=== PATIENT | female | born 1950 | race Caucasian/White ===

== ENCOUNTER 2020-03-18 10:55 | Emergency (ER) | payer MEDICARE, SELFPAY ==
[2020-03-18] VITALS (10 sets, daily range): BP systolic 126–171; BP diastolic 83–95; PULSE 55–79; RESP 13–18; TEMP 36.8; O2SAT 93–97; BMI 17.4
--- NOTE | 2020-03-18 11:01 | ECG_ITS ---
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 Measurements Intervals [place] Rate: 65 P: 76 NM: 170 QRS: 20 QRSD: 98 T: 69 QT: 418 QTc: 435 Interpretive Statements SINUS RHYTHM WITH OCCASIONAL ECTOPIC PREMATURE COMPLEXES LEFT ATRIAL ENLARGEMENT [-0.15mV P WAVE IN V1/V2] LOW QRS VOLTAGE IN EXTREMITY LEADS [QRS DEFLECTION < 0.5 mV IN LIMB LEADS] POSSIBLE RIGHT VENTRICULAR CONDUCTION DELAY [RSR (QR) IN V1/V2] PROBABLE ANTEROLATERAL MYOCARDIAL INFARCTION , OF INDETERMINATE AGE [35 ms Q WAVE IN I/aVL/V3-V6] No previous ECG available for comparison Electronically Signed On 03-18-2020 20:32:20 CDT by Darlyn Callaway M.D. [id number]
--- NOTE | 2020-03-18 11:01 | XRR_ITS ---
PROCEDURE INFORMATION: Exam: XR Chest, 1 View Exam date and time: 03/18/2020 11:21 AM Age: 69 years old Clinical indication: Chest pain; Type not specified; Prior surgery; Surgery type: Stents TECHNIQUE: Imaging protocol: XR of the chest Views: 1 view. COMPARISON: No relevant prior studies available. FINDINGS: Lungs: COPD and interstitial prominence. Pleural space: No pleural effusion. Heart/Mediastinum: No cardiomegaly. Bones/joints: Osteopenia and mild degenerative change. XR/XR chest 1V portable [id number] IMPRESSION: COPD and interstitial prominence.
[2020-03-18 11:28] LABS: Basophils # 0.1 10^3/uL (0.0-0.1); Basophils % 0.6 %; Hematocrit 42.2 % (37.0-47.0); Hemoglobin 13.8 g/dL (11.5-15.3); Lymphocytes # 1.9 10^3/uL (0.8-4.8); Lymphocytes % 22.5 %; Mean Corpuscular HGB Conc 32.7 g/dL (30.0-36.0); Mean Corpuscular Hemoglobin 30.7 pg (28.0-34.0); Mean Platelet Volume 9.8 fL (7.4-10.4); Monocytes # 0.4 10^3/uL (0.2-0.9); Monocytes % 5.1 %; Neutrophils # 5.89 10^3/uL (1.8-7.7); Neutrophils % 71.4 %; Nucleated Red Blood Cells % 0 %; Platelet Count 287 10^3/cmm (130-400); Red Blood Count 4.49 10^6/uL (4.1-5.3); Red Cell Distribution Width 13.2 % (12.1-15.1); White Blood Count 8.2 10^3/uL (4.0-10.0)
--- NOTE | 2020-03-18 11:40 | W.ED.WEAKNES ---
HPI - Weakness General: Chief complaint: Weakness Stated complaint: NECK PAIN Time Seen by Provider: 03/18/20 11:00 History of Present Illness: HPI Narrative: This patient is a 69-year-old female presenting today with several days of weakness and fatigue. She said some dizziness and exertional dyspnea. She went to her primary care clinic in [place] and they referred her here due to concerns for cardiac disease. She had an VT and stents placed in the past and had similar symptoms at that time. She said while she was at the clinic she started getting pain in the left shoulder and upper left neck. She also has been battling what she describes as sinusitis and bronchitis for several weeks. She has had some low-grade fevers off and on. She is currently on Zithromax. She said the generalized not feeling well has been going on really for more than the past 2 days but it is been worse for the past 2 days. Complaint: generalized weakness Onset (ago): week(s) (2, worse in the past 2 days) Duration: constant Location: generalized Severity: moderate Associated symptoms: Reports fever(s), short of breath and other (Dizziness); Denies chest pain, easy bruising, headache(s), nausea or vomiting Review of Systems General: Reports: 10 or more systems reviewed and unremarkable except in HPI and below Const: Reports: fever(s) and fatigue Eyes: Denies: change in vision ENMT: Denies: odynophagia Card: Denies: chest pain or swelling of feet/ankles Resp: Reports: dyspnea and non-productive cough; Denies: productive cough GI: Denies: abdominal pain, nausea or vomiting : Denies: flank pain or difficulty voiding Musc: Denies: neck pain or back pain Skin/Breast: Denies: rash Neuro: Reports: dizziness; Denies: headache(s), numbness in extremities or weakness in extremities Felipe/Lymph: Denies: easy bruising or easy bleeding PFSH ED PFSH: Medical History (Updated 03/18/20 @ 19:06 by Abril Romero MD) Lower respiratory infection Physical Exam Const: COMMON NORMALS: no acute distress, patient oriented x3, no limitations and alert GENERAL APPEARANCE: cooperative and comfortable HENMT: HEAD & SCALP: normal to inspection FACE & SINUS: normal facial exam Eye: GENERAL EYE: appearance normal, both eyes and all related structures Neck/C-Spine: COMMON NORMALS: supple, no meningeal signs and no JVD Chest: COMMONS NORMALS: normal inspection of the chest Resp: COMMON NORMALS: normal respiratory effort and No use of accessory muscles AUSCULTATION: rales bilateral at the base Cardio: COMMON NORMALS: no JVD, regular rate, regular rhythm and No murmurs present (Cardio) RATE: regular rate RHYTHM: regular rhythm GI: COMMON NORMALS: Normal to inspection, nondistended, normoactive bowel sounds present, Soft to palpation and non-tender INSPECTION: Yes normal to inspection AUSCULTATION: Yes normoactive bowel sounds PALPATION: Yes Soft to palpation Back/Pelvis: COMMON NORMALS: thoracic and lumbar spine normal to inspection Extremity: COMMON NORMALS: normal to inspection Neuro: COMMON NORMALS: patient oriented x3, moves all extremities, no focal motor deficits and no sensory deficits noted SENSORIUM/ORIENTATION: Yes alert MENINGEAL SIGNS: Yes no meningeal signs Psych: COMMON NORMALS: mental status grossly normal, cooperative and normal affect Skin: COMMON NORMALS: no rashes or lesions noted and turgor normal GENERAL SKIN EXAM: no rashes or lesions noted and turgor normal Course ED course: Patient sent over with an weakness. She understands that I am concerned about pending cardiac issues even though her work-up today is normal. She refused to stay in the hospital for further evaluation. I did give her follow-up with cardiology and put an outpatient referral for a stress test. Vital Signs: Vital signs: Vital Signs Temperature 98.2 F 03/18/20 11:03 Pulse Rate 65 03/18/20 17:00 Respiratory Rate 16 03/18/20 17:00 Blood Pressure 142/91 03/18/20 17:00 Pulse Oximetry 95 03/18/20 17:00 MDM - Weakness Lab Data: Labs: Lab Results 03/18/20 03/18/20 03/18/20 Range/Units 11:09 11:09 11:09 WBC 8.2 (4.0-10.0) 10^3/ uL RBC 4.49 (4.1-5.3) 10^6/u L Hgb 13.8 (11.5-15.3) g/dL Hct 42.2 (37.0-47.0) % MCV 94.0 (81-99) fL MCH 30.7 (28.0-34.0) pg MCHC 32.7 (30.0-36.0) g/dL RDW 13.2 (12.1-15.1) % Plt Count 287 (130-400) 10^3/c mm MPV 9.8 (7.4-10.4) fL Neut % (Auto) 71.4 % Lymph % (Auto) 22.5 % [place] % (Auto) 5.1 % Eos % (Auto) 0.0 % Baso % (Auto) 0.6 % Neut # (Auto) 5.89 (1.8-7.7) 10^3/u L Lymph # (Auto) 1.9 (0.8-4.8) 10^3/u L [place] # (Auto) 0.4 (0.2-0.9) 10^3/u L Eos # (Auto) 0.0 (0.0-0.8) 10^3/u L Baso # (Auto) 0.1 (0.0-0.1) 10^3/u L Nucleated RBC % (a uto) 0 % Nucleated RBCs # 0.0 /100WBC PT 12.80 (10.5-13.3) SECO NDS INR 0.94 (0.8-1.2) Sodium 135 L (136-145) mmol/L Potassium 3.6 (3.5-5.1) mmol/L Chloride 95 L (98-107) mmol/L Carbon Dioxide 27 (22-29) mmol/L Anion Gap 16.6 (5-19) BUN 13 (8-23) mg/dL Creatinine 0.7 (0.5-0.9) mg/dL GFR Calculation 82.7 L (90-130) mL/min Glucose 93 (65-115) mg/dL Calculated Osmolal ity 276 L (285-295) mOsm/k g Calcium 9.9 (8.5-10.5) mg/dL Total Bilirubin 0.2 (0.15-1.2) mg/dL AST 31 (0-32) U/L ALT 14 (0-33) U/L Alkaline Phosphata se 92 (35-105) IU/L Troponin T Baselin e (0-10) ng/L Troponin T 120 Min tana (0-10) ng/L Delta Troponin T (0-10) ABS# Troponin T Hi Sens 6Hr (0-10) ng/L Troponin T Hi Sens 6Hr Delta (0-12) ng/L NT-Pro-B Natriuret Pep 306 H (0-125) pg/mL Total Protein 7.3 (6.6-8.7) g/dL Albumin 4.3 (3.5-5.2) g/dL Globulin 3.0 (1.3-4.6) g/dL Lipase 17 (13-60) U/L Urine Color (Yellow) Urine Appearance (CLEAR) Urine pH (5-7) Ur Specific Gravit y (1.005-1.030) Urine Protein (Negative) Urine Glucose (UA) (Normal) Urine Ketones (Negative) Urine Blood (Negative) Urine Nitrate (Negative) Urine Bilirubin (NEGATIVE) Prot Sulfosalicyli c Acd (Negative) Urine Urobilinogen (Negative) mg/dL Ur Leukocyte Kiki ase (Negative) 03/18/20 03/18/20 03/18/20 Range/Units 11:09 11:15 13:02 WBC (4.0-10.0) 10^3/ uL RBC (4.1-5.3) 10^6/u L Hgb (11.5-15.3) g/dL Hct (37.0-47.0) % MCV (81-99) fL MCH (28.0-34.0) pg MCHC (30.0-36.0) g/dL RDW (12.1-15.1) % Plt Count (130-400) 10^3/c mm MPV (7.4-10.4) fL Neut % (Auto) % Lymph % (Auto) % [place] % (Auto) % Eos % (Auto) % Baso % (Auto) % Neut # (Auto) (1.8-7.7) 10^3/u L Lymph # (Auto) (0.8-4.8) 10^3/u L [place] # (Auto) (0.2-0.9) 10^3/u L Eos # (Auto) (0.0-0.8) 10^3/u L Baso # (Auto) (0.0-0.1) 10^3/u L Nucleated RBC % (a uto) % Nucleated RBCs # /100WBC PT (10.5-13.3) SECO NDS INR (0.8-1.2) Sodium (136-145) mmol/L Potassium (3.5-5.1) mmol/L Chloride (98-107) mmol/L Carbon Dioxide (22-29) mmol/L Anion Gap (5-19) BUN (8-23) mg/dL Creatinine (0.5-0.9) mg/dL GFR Calculation (90-130) mL/min Glucose (65-115) mg/dL Calculated Osmolal ity (285-295) mOsm/k g Calcium (8.5-10.5) mg/dL Total Bilirubin (0.15-1.2) mg/dL AST (0-32) U/L ALT (0-33) U/L Alkaline Phosphata se (35-105) IU/L Troponin T Baselin e 13 H (0-10) ng/L Troponin T 120 Min tana 16.78 H (0-10) ng/L Delta Troponin T 3.78 (0-10) ABS# Troponin T Hi Sens 6Hr (0-10) ng/L Troponin T Hi Sens 6Hr Delta (0-12) ng/L NT-Pro-B Natriuret Pep (0-125) pg/mL Total Protein (6.6-8.7) g/dL Albumin (3.5-5.2) g/dL Globulin (1.3-4.6) g/dL Lipase (13-60) U/L Urine Color Straw (Yellow) Urine Appearance Clear (CLEAR) Urine pH 8 H (5-7) Ur Specific Gravit y 1.020 (1.005-1.030) Urine Protein Neg (Negative) Urine Glucose (UA) Norm (Normal) Urine Ketones 1+ H (Negative) Urine Blood Neg (Negative) Urine Nitrate Negative (Negative) Urine Bilirubin Neg (NEGATIVE) Prot Sulfosalicyli c Acd Negative (Negative) Urine Urobilinogen Norm (Negative) mg/dL Ur Leukocyte Kiki ase Negative (Negative) 03/18/20 Range/Units 16:59 WBC (4.0-10.0) 10^3/ uL RBC (4.1-5.3) 10^6/u L Hgb (11.5-15.3) g/dL Hct (37.0-47.0) % MCV (81-99) fL MCH (28.0-34.0) pg MCHC (30.0-36.0) g/dL RDW (12.1-15.1) % Plt Count (130-400) 10^3/c mm MPV (7.4-10.4) fL Neut % (Auto) % Lymph % (Auto) % [place] % (Auto) % Eos % (Auto) % Baso % (Auto) % Neut # (Auto) (1.8-7.7) 10^3/u L Lymph # (Auto) (0.8-4.8) 10^3/u L [place] # (Auto) (0.2-0.9) 10^3/u L Eos # (Auto) (0.0-0.8) 10^3/u L Baso # (Auto) (0.0-0.1) 10^3/u L Nucleated RBC % (a uto) % Nucleated RBCs # /100WBC PT (10.5-13.3) SECO NDS INR (0.8-1.2) Sodium (136-145) mmol/L Potassium (3.5-5.1) mmol/L Chloride (98-107) mmol/L Carbon Dioxide (22-29) mmol/L Anion Gap (5-19) BUN (8-23) mg/dL Creatinine (0.5-0.9) mg/dL GFR Calculation (90-130) mL/min Glucose (65-115) mg/dL Calculated Osmolal ity (285-295) mOsm/k g Calcium (8.5-10.5) mg/dL Total Bilirubin (0.15-1.2) mg/dL AST (0-32) U/L ALT (0-33) U/L Alkaline Phosphata se (35-105) IU/L Troponin T Baselin e (0-10) ng/L Troponin T 120 Min tana (0-10) ng/L Delta Troponin T (0-10) ABS# Troponin T Hi Sens 6Hr 16.66 H (0-10) ng/L Troponin T Hi Sens 6Hr Delta 3.66 (0-12) ng/L NT-Pro-B Natriuret Pep (0-125) pg/mL Total Protein (6.6-8.7) g/dL Albumin (3.5-5.2) g/dL Globulin (1.3-4.6) g/dL Lipase (13-60) U/L Urine Color (Yellow) Urine Appearance (CLEAR) Urine pH (5-7) Ur Specific Gravit y (1.005-1.030) Urine Protein (Negative) Urine Glucose (UA) (Normal) Urine Ketones (Negative) Urine Blood (Negative) Urine Nitrate (Negative) Urine Bilirubin (NEGATIVE) Prot Sulfosalicyli c Acd (Negative) Urine Urobilinogen (Negative) mg/dL Ur Leukocyte Kiki ase (Negative) EKG Data^: EKG 1: EKG interpretation date: 03/18/20 EKG interpretation time: 11:13 Interpretation: Sinus rhythm at a rate of 65. Atrial enlargement. Low QRS voltage. Normal intervals with early right ventricular conduction delay. Q waves in 1, aVL. No acute ischemic changes noted. No old EKG for comparison other than what was sent from the clinic today which is unchanged. Discharge Plan Discharge Patient Disposition: Home Clinical Impression: Chest pain Condition: Stable Prescriptions: No Action azithromycin 250 mg tablet See Rx Instructions PO .COMPLEX Qty: 6 RF: 0 carbamide peroxide [Debrox] 6.5 % drops 5 drop EAR-BOTH BID 4 Days Qty: 15 RF: 0 aspirin 325 mg Tablet 325 mg PO PRN RF: 0 Tylenol Extra Strength 500 mg Tablet 1,000 mg PO BEDTIME RF: 0 Excedrin Extra Strength 250-250-65 mg Tablet 2 tab PO BID RF: 0 promethazine-DM 6.25-15 mg/5 mL syrup 5 ml PO Q6H PRN (Reason: unknown) RF: 0 Discharge Orders: Discharge Order (Routine); Ordered 03/18/20 Ordered By: Abril Romero Referrals: MATIAS Waters FNP [Primary Care Provider] - Christine Rivera MD [Physician] - 4-7 days Discharge Diet: Usual diet Discharge Activity: Resume usual activity Patient Instructions: Chest Pain (ED) Activity Restrictions/Additional Instructions: Please return to the emergency department if any worsening of your symptoms including worsening pain in your neck or shoulder. Follow-up with your primary care provider for assistance in setting up an outpatient stress test which has been ordered. You will also get a call regarding setting up an appointment with cardiology for follow-up. Discharge Date/Time: 03/18/20 19:18 Coding Level of Care Code ED Stock Chaser for Tianna Fwd Exam Comprehensive
[2020-03-18 11:48] LABS: Add Urine Microscopic? NO
[2020-03-18 11:55] LABS: Troponin(5th) Baseline 13 ng/L (0-10)
[2020-03-18 11:56] LABS: Urine Appearance Clear (CLEAR); Urine Color Straw (Yellow); pH Urine 8 (5-7)
[2020-03-18 11:57] LABS: Bilirubin Urine Neg (NEGATIVE); Blood Urine Neg (Negative); Glucose Urine UA Norm (Normal); Ketones Urine 1+ (Negative); Leukocyte Esterase Urine Negative (Negative); Nitrate Urine Negative (Negative); Protein Urine Neg (Negative); Sulfosalicylic Acid Urine Negative (Negative); Urobilinogen Urine Norm (Negative)
[2020-03-18 12:04] LABS: Alanine Aminotransferase 14 U/L (0-33); Albumin Level 4.3 g/dL (3.5-5.2); Alkaline Phosphatase 92 IU/L (35-105); Anion Gap 16.6 (5-19); Aspartate Amino Transferase 31 U/L (0-32); Blood Urea Nitrogen 13 mg/dL (8-23); Calcium 9.9 mg/dL (8.5-10.5); Carbon Dioxide 27 mmol/L (22-29); Chloride 95 mmol/L (98-107); Glomerular Filtration Rate 82.7 mL/min (90-130); Glucose 93 mg/dL (65-115); Lipase 17 U/L (13-60); NT Pro B Type Natriuretic Pept 306 pg/mL (0-125); Osmolality Calculated 276 mOsm/kg (285-295); Potassium 3.6 mmol/L (3.5-5.1); Sodium 135 mmol/L (136-145); Total Bilirubin 0.2 mg/dL (0.15-1.2); Total Protein 7.3 g/dL (6.6-8.7)
[2020-03-18 12:06] LABS: INR 0.94 (0.8-1.2)
--- NOTE | 2020-03-18 13:01 | ECG_ITS ---
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 Measurements Intervals [place] Rate: 61 P: 77 OR: 173 QRS: 42 QRSD: 100 T: 74 QT: 428 QTc: 431 Interpretive Statements SINUS RHYTHM LEFT ATRIAL ENLARGEMENT [-0.15mV P WAVE IN V1/V2] POSSIBLE RIGHT VENTRICULAR CONDUCTION DELAY [RSR (QR) IN V1/V2] PROBABLE INFERIOR MYOCARDIAL INFARCTION , OF INDETERMINATE AGE [35 ms Q WAVE IN II/aVF] PROBABLE ANTEROLATERAL MYOCARDIAL INFARCTION , OF INDETERMINATE AGE [35 ms Q WAVE IN I/aVL/V3-V6] Compared to ECG 03/18/2020 11:08:43 No significant changes Electronically Signed On 03-18-2020 20:37:21 CDT by Darlyn Callaway M.D. [email or web address].Sarta/store/OM/[id number]
[2020-03-18 13:31] LABS: Troponin 5 2HR 16.78 ng/L (0-10); Troponin 5 2HR Delta 3.78 ABS# (0-10)
[2020-03-18] MEDS: acetaminophen 325 mg Tablet 975 MG PO (15:25)
--- NOTE | 2020-03-18 17:01 | ECG_ITS ---
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 Measurements Intervals [place] Rate: 62 P: 78 WV: 179 QRS: 53 QRSD: 98 T: 69 QT: 430 QTc: 438 Interpretive Statements SINUS RHYTHM POSSIBLE RIGHT ATRIAL ENLARGEMENT [0.25mV P WAVE] LEFT ATRIAL ENLARGEMENT [-0.15mV P WAVE IN V1/V2] INCOMPLETE RIGHT BUNDLE BRANCH BLOCK [90+ ms QRS DURATION, TERMINAL R IN V1/V2, 40+ ms S IN I/aVL/V4/V5/V6] PROBABLE INFERIOR MYOCARDIAL INFARCTION , OF INDETERMINATE AGE [35 ms Q WAVE IN II/aVF] PROBABLE ANTEROLATERAL MYOCARDIAL INFARCTION , OF INDETERMINATE AGE [35 ms Q WAVE IN I/aVL/V3-V6] Compared to ECG 03/18/2020 12:59:20 Incomplete right bundle-branch block now present Myocardial infarct finding still present Electronically Signed On 03-18-2020 20:38:30 CDT by Darlyn Callaway M.D. [email or web address].[facility]je[facility]is [facility] hospitalSk[facility].EquityZen/store/OM/[id number]
[2020-03-18 17:40] LABS: Troponin 5 6HR 16.66 ng/L (0-10); Troponin 5 6HR Delta 3.66 ng/L (0-12)
--- NOTE | 2020-03-19 10:15 | PC.SOCIAL ---
Addendum entered by Yessenia Marrero RN 03/19/20 10:18: Called patient and updated her that each area will be calling her with an appt date and time. She verbalized understanding. Original Note: Called Heaven at [facility] she will schedule appt with Cardiology and call patient with date and time. Faxed order for stress test to [facility] and scanned to email to Carlita there just in case. Confirmation of successful fax transmission was received.
--- NOTE | 2020-03-22 09:46 | DCPLANNER ---
Patient has a follow up appointment scheduled for Wednesday, April 08, 2020 at 1:[address] Rivera. Clinic will call patient with appointment information. talent management manager called centralized scheduling, they have order was told working on getting it scheduled.
--- NOTE | 2020-03-26 15:05 | DCPLANNER ---
Patient has an outpatient stress test scheduled for , April 04, 2020 at 1:00. Centralized scheduling will call patient with appointment information.
--- NOTE | 2020-04-30 13:16 | DCPLANNER ---
[facility] for 04[facility] Rivera - patient did attend the appointment Patient had an outpatient stress test scheduled for 04.04.20 - patient did attend the stress test.
== END 2020-03-18 19:18 | disposition home or self-care (01) ==
PROVIDERS: Emergency Provider Emergency Medicine; PCP Nurse Practitioner Family
DX: R07.9 Chest pain, unspecified (principal); Z79.82 Long term (current) use of aspirin
CPT/HCPCS: 12345; 36415; 71045; 80053; 81003; 83690; 83880; 84484; 85025; 85610; 93005; 99284

== ENCOUNTER 2020-04-04 10:15 | Outpatient (CLI) | payer MEDICARE, SELFPAY ==
[2020-04-04 10:44] VITALS: BMI 17.4
--- NOTE | 2020-04-04 10:55 | ECG_ITS ---
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 The perfusion scan will be documented separately. DATA: Baseline heart rate was 50 beats per minute. Baseline blood pressure was 152/83 millimeters of mercury. Target heart rate was 149. Maximum heart rate achieved was 76. which was 51 % of the predicted target heart rate. Maximum blood pressure was 152/88 millimeters of mercury. The reason for ending the test was completion of the protocol. The patient did not experience any symptoms. ELECTROCARDIOGRAM: BASELINE: Sinus bradycardia with PAC. Normal axis. Otherwise, no ST-T changes suggestive of ischemia noted. No arrhythmia noted. EXERCISE: After Lexiscan injection, no ST-T changes suggestive of ischemic noted. No arrhythmia noted. 1. EKG not suggestive of ischemia 2. Lexiscan injection unremarkable. 3. Perfusion scan will be documented separately. Electronically Signed On 04-17-2020 19:01:29 CDT by Brigitte Agustin M.D. [id number]
--- NOTE | 2020-04-04 10:56 | NMCV_ITS ---
NM livia perf SPECT r/s* [id number] Yoselyn Lund Age: 70 Gender: F : 1950 Exam Date: 04/04/2020 11:44 Ordering Phys: Abril Romero MD Technologist: CHEKO Garnett Exam Location: [facility] Indications: Chest pain STRESS TEST Please see separate stress test report in [facility] for full findings IMAGE PROTOCOL Rest/Stress 1 Lexiscan Day Radiopharmaceutical Dose (mCi) Administration Site Administered by Rest: Tc-99m 10.7 IV CHEKO Garnett Sestamibi Stress:Tc-99m 33.0 IV CHEKO Maloney Sestamibi Rest: 04-Apr-2020 60 Discovery 630 Stress: 04-Apr-2020 45 Discovery 630 0.4mg Lexiscan. Images obtained in supine and prone position. SPECT RESULTS Technical Quality: Excellent Raw Data Analysis: Normal Image Corrections: No attenuation or motion correction applied Summed Stress Score: 0 Summed Rest Score: 0 Summed Difference Score: 0 PERFUSION FINDINGS Uniform myocardial tracer uptake with no significant perfusion abnormalities FUNCTIONAL RESULTS (calculated via Gated SPECT) Stress Image LV EF (%): 75 Stress EDV (mL):61 TID: 0.92 Stress ESV (mL):15 FUNCTIONAL FINDINGS: Segmental wall motion analysis revealing no gross wall motion normalities IMPRESSIONS 1. Unremarkable myocardial perfusion imaging. 2. Normal LV ejection fraction 75% 3. LV wall motion analysis revealing no gross wall motion abnormalities. 4. Normal LV volume. No significant coronary ischemia, based on the above findings Dr Darlyn Callaway MD FAC (Electronically Signed) Final Date: 04 April 2020 18:46 S
--- NOTE | 2020-04-04 13:01 | SUR.PREOP ---
Patient reports no pain or discomfort prior to the start of the procedure.
[2020-04-04] MEDS: regadenoson 0.4 Mg/5 ml Syringe IVP (13:09)
[2020-04-04 13:21] VITALS: BP 135/85; PULSE 65
== END 2020-04-04 10:16 | disposition home or self-care (01) ==
LOC: CDL 10:16
PROVIDERS: PCP Nurse Practitioner Family; Visit Provider Emergency Medicine
DX: R07.9 Chest pain, unspecified (principal); R06.02 Shortness of breath
CPT/HCPCS: 78452; 93017; A9500; J2785

== ENCOUNTER → 2020-06-18 12:16 | Outpatient (BNVA) | payer MEDICARE, SELFPAY | PROVIDERS: PCP Nurse Practitioner Family; Visit Provider Nurse Practitioner Family | DX: J22 Unspecified acute lower respiratory infection (principal); Z20.828 Contact with and (suspected) exposure to other viral communicable diseases; J01.40 Acute pansinusitis, unspecified | CPT/HCPCS: 87400; 87635 ==

== ENCOUNTER 2022-04-19 10:46 | Inpatient (IN) | payer MEDICARE, SELFPAY ==
[2022-04-19] VITALS (31 sets, daily range): BP systolic 106–139; BP diastolic 64–83; PULSE 48–193; RESP 17–36; TEMP 36.7–36.8; O2SAT 83–100; BMI 17.4
--- NOTE | 2022-04-19 10:56 | XRR_ITS ---
PROCEDURE INFORMATION: Exam: XR Chest Exam date and time: 04/19/2022 11:53 AM Age: 72 years old Clinical indication: Chest pain. Angina pectoris. TECHNIQUE: Imaging protocol: Radiologic exam of the chest. Views: 1 view. COMPARISON: CR XR chest 1V portable [id number] 03/18/2020 11:30 AM FINDINGS: Lungs: The lungs are hyperinflated. A perihilar nodule on the left is similar to prior measuring 6.4 mm. Pleural spaces: No pleural effusion. No pneumothorax. Heart/Mediastinum: The cardiac silhouette is unchanged. No gross evidence of pneumomediastinum. Bones/joints: No gross fracture. Soft tissues: Probable scarring in the lower left chest. XR/XR chest 1V portable [id number] IMPRESSION: 1. Pulmonary hyperinflation; query COPD, asthma or other obstructive lung disease. 2. Persistent cardiomegaly. 3. Perihilar nodule on the left similar to March 2020. Consider nonemergent CT chest to better characterize.
--- NOTE | 2022-04-19 11:12 | ECG_ITS ---
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 Measurements Intervals [place] Rate: 50 P: 77 NE: 208 QRS: 78 QRSD: 96 T: 84 QT: 479 QTc: 440 Interpretive Statements SINUS BRADYCARDIA WITH OCCASIONAL SUPRAVENTRICULAR PREMATURE COMPLEXES POSSIBLE LEFT ATRIAL ENLARGEMENT [-0.1mV P-WAVE IN V1/V2] ST DEVIATION AND MODERATE T-WAVE ABNORMALITY, CONSIDER ANTERIOR ISCHEMIA Compared to ECG 03/18/2020 17:04:38 T-wave abnormality now present Possible ischemia now present Sinus rhythm no longer present Incomplete right bundle-branch block no longer present Myocardial infarct finding no longer present Electronically Signed On 04-19-2022 13:02:23 CDT by Christine Rivera M.D. [id number]
[2022-04-19 11:23] LABS: Basophils # 0.1 10^3/uL (0.0-0.1); Basophils % 0.9 %; Eosinophils # 0.1 10^3/uL (0.0-0.8); Eosinophils % 0.9 %; Hematocrit 40.9 % (37.0-47.0); Hemoglobin 12.9 g/dL (11.5-15.3); Lymphocytes # 1.3 10^3/uL (0.8-4.8); Lymphocytes % 21.5 %; Mean Corpuscular HGB Conc 31.5 g/dL (30.0-36.0); Mean Corpuscular Hemoglobin 31.3 pg (28.0-34.0); Mean Corpuscular Volume 99.3 fl (81-99); Monocytes # 0.4 10^3/uL (0.2-0.9); Monocytes % 7.5 %; Neutrophils # 4.05 10^3/uL (1.8-7.7); Nucleated Red Blood Cells % 0 %; Platelet Count 242 10^3/cmm (130-400); Red Blood Count 4.12 10^6/uL (4.1-5.3); Red Cell Distribution Width 13.4 % (12.1-15.1); White Blood Count 5.9 10^3/uL (4.0-10.0)
[2022-04-19] MEDS: morphine 4 mg/mL SDV 1 mL IVP (11:25)
--- NOTE | 2022-04-19 13:10 | ECG_ITS ---
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 Measurements Intervals [place] Rate: 50 P: 84 AK: 200 QRS: 82 QRSD: 98 T: 89 QT: 461 QTc: 422 Interpretive Statements SINUS BRADYCARDIA LEFT ATRIAL ENLARGEMENT [-0.15mV P-WAVE IN V1/V2] MODERATE ST DEPRESSION [0.05+ mV ST DEPRESSION] Compared to ECG 04/19/2022 11:12:29 ST (T wave) deviation now present T-wave abnormality no longer present Possible ischemia no longer present Electronically Signed On 04-19-2022 13:11:28 CDT by Christine Rivera M.D. [email or web address].Vriti Infocom/store/[id number]
[2022-04-19 13:16] LABS: Troponin(5th) Baseline 67 ng/L (0-10)
[2022-04-19 13:24] LABS: Alanine Aminotransferase 11 U/L (0-33); Albumin Level 3.7 g/dL (3.5-5.2); Alkaline Phosphatase 87 U/L (35-105); Aspartate Amino Transferase 19 U/L (0-32); Blood Urea Nitrogen 16 mg/dL (8-23); Calcium 9.3 mg/dL (8.5-10.5); Carbon Dioxide 24 mmol/L (22-29); Chloride 101 mmol/L (98-107); Globulin 2.6 g/dL (1.3-4.6); Glucose 102 mg/dL (65-115); NT Pro B Type Natriuretic Pept 192 pg/mL (0-125); Osmolality Calculated 285 mOsm/kg (285-295); Sodium 137 mmol/L (136-145); Total Bilirubin 0.2 mg/dL (0.15-1.2); Total Protein 6.3 g/dL (6.6-8.7)
[2022-04-19 13:29] LABS: Anion Gap 16.4 (5-19); Potassium 4.4 mmol/L (3.5-5.1)
[2022-04-19 15:02] LABS: Troponin 5 2HR 265.8 ng/L (0-10); Troponin 5 2HR Delta 198.8 ABS# (0-10)
--- NOTE | 2022-04-19 15:09 | ED_ITS ---
Documented by User: Ana Cristina Burgess 04/19/22 20:39 HPI - Chest Pain General: Chief Complaint: Chest Pain Stated Complaint: CHEST PAIN; BRADYCARDIA Time Seen by Provider: 04/19/22 10:55 History of Present Illness: Associated symptoms: Deny abdominal pain, diaphoresis, dyspnea, fever(s), nausea, palpitations, syncope or vomiting Review of Systems Const: Denies: fever(s), chills, body aches, change in appetite, change in weight, fatigue, malaise or diaphoresis Eyes: Denies: change in vision, blurry vision, blind spots, photophobia, eye discomfort, eye discharge, eye redness, floaters or seeing flashes ENMT: Denies: throat pain, uvular edema, enlarged tonsils, odynophagia, hoarseness, mouth pain, swelling of lips/tongue, oral sores, bleeding gums, dental pain, dry mouth, ear or mastoid pain, ear discharge, change in hearing, tinnitus, disequilibrium, nasal discharge, nasal congestion, post nasal drip or sinus pain Card: Reports: chest pain; Denies: palpitations, irregular heart rhythm, edema, swelling of feet/ankles, lightheadedness, syncope, pre-syncope, dyspnea on exertion, orthopnea, leg pain with exertion or acrocyanosis Resp: Denies: dyspnea, productive cough, non-productive cough, wheezing, stridor, pain on inspiration, change in phlegm color, hemoptysis or chest congestion GI: Denies: abdominal pain, nausea, vomiting, hematemesis, dysphagia, diarrhea, constipation, GI cramping, change in bowel habits or rectal pain : Denies: flank pain, difficulty voiding, dysuria, urinary frequency, urinary urgency, urinary hesitancy or hematuria Musc: Denies: neck pain, back pain, extremity pain, extremity swelling, joint pain, joint swelling, joint redness, joint warmth or deformity Skin/Breast: Denies: rash, pruritus, erythema, sores, new lesions, changes in skin color or dry skin Neuro: Denies: headache(s), numbness in extremities, weakness in extremities, sensory changes, lack of coordination, difficulty walking, frequent falls, dizziness, vertigo, confusion, behavioral changes, Slurred speech present, difficulty communicating thoughts or seizure-like activity Psych: Denies: anxiety, depression, suicidal ideation or homicidal ideation Endo: Denies: polyuria, polydipsia, tired all the time, cold intolerance, e xcessive sweating, flushing, hot flashes or heat intolerance Felipe/Lymph: Denies: easy bruising, easy bleeding, petechiae, purpura, enlarged lymph nodes or tender lymph nodes All/Imm: Denies: urticaria, throat swelling, tongue swelling, facial swelling, acute wheezing or itchy eyes PFSH ED PFSH: Medical History CAD (coronary artery disease) Chronic back pain Close exposure to COVID-19 virus Lower respiratory infection Osteoarthritis Smoking addiction Surgical History History of coronary artery stent placement 04/18/11 Family History Other CAD (coronary artery disease) Diabetes Hypertension Social History Smoking and tobacco status: current every day smoker cigarettes Packs smoked per day: 1 Years cigarettes smoked: 50 Alcohol intake: current Alcohol intake frequency: holidays/special occasions only Substance/Drug Use: never Lives independently: Yes Household members: none Marital status: / Physical Exam HENMT: THROAT: no uvular edema Course Vital Signs: Vital signs: Vital Signs Temperature 98.0 F 04/19/22 19:00 Pulse Rate 58 L 04/19/22 20:00 Respiratory Rate 17 04/19/22 20:00 Blood Pressure 128/75 04/19/22 20:00 Pulse Oximetry 98 04/19/22 20:00 Oxygen Delivery Ny thod 04/19/22 19:00 MDM - Chest Pain Medical Decision Making 72-year-old female presenting today with chest pain. EKG without evidence of acute ischemia. Initial troponin slightly elevated. Repeat troponin with significant delta increase. Patient with known coronary artery disease. Last catheterization in 2010. sHe is taking all medications as prescribed. Is currently chest pain-free. Due to significant elevation in troponin on delta. Will admit to the hospital for further cardiac restratification. Patient is an NSTEMI. Did take appropriate dose of aspirin prior to arrival Lab Data : 04/19/22 11:03 04/19/22 12:35 Radiology Impressions Chest X-Ray 04/19/22 10:56 IMPRESSION: 1. Pulmonary hyperinflation; query COPD, asthma or other obstructive lung disease. 2. Persistent cardiomegaly. 3. Perihilar nodule on the left similar to March 2020. Consider nonemergent CT chest to better characterize. Laboratory Results WBC 5.9 10^3/uL (4.0-10.0) 04/19/22 11:03 RBC 4.12 10^6/uL (4.1-5.3) 04/19/22 11:03 Hgb 12.9 g/dL (11.5-15.3) 04/19/22 11:03 Hct 40.9 % (37.0-47.0) 04/19/22 11:03 MCV 99.3 fl (81-99) H 04/19/22 11:03 MCH 31.3 pg (28.0-34.0) 04/19/22 11:03 MCHC 31.5 g/dL (30.0-36.0) 04/19/22 11:03 RDW 13.4 % (12.1-15.1) 04/19/22 11:03 Plt Count 242 10^3/cmm (130-400) 04/19/22 11:03 MPV 10.0 fL (7.4-10.4) 04/19/22 11:03 Neut % (Auto) 69.0 % 04/19/22 11:03 Lymph % (Auto) 21.5 % 04/19/22 11:03 [place] % (Auto) 7.5 % 04/19/22 11:03 Eos % (Auto) 0.9 % 04/19/22 11:03 Baso % (Auto) 0.9 % 04/19/22 11:03 Neut # (Auto) 4.05 10^3/uL (1.8-7.7) 04/19/22 11:03 Lymph # (Auto) 1.3 10^3/uL (0.8-4.8) 04/19/22 11:03 [place] # (Auto) 0.4 10^3/uL (0.2-0.9) 04/19/22 11:03 Eos # (Auto) 0.1 10^3/uL (0.0-0.8) 04/19/22 11:03 Baso # (Auto) 0.1 10^3/uL (0.0-0.1) 04/19/22 11:03 Nucleated RBC % (auto) 0 % 04/19/22 11:03 Nucleated RBCs # 0.0 /100WBC 04/19/22 11:03 Sodium 137 mmol/L (136-145) 04/19/22 12:35 Potassium 4.4 mmol/L (3.5-5.1) 04/19/22 12:35 Chloride 101 mmol/L (98-107) 04/19/22 12:35 Carbon Dioxide 24 mmol/L (22-29) 04/19/22 12:35 Anion Gap 16.4 (5-19) 04/19/22 12:35 BUN 16 mg/dL (8-23) 04/19/22 12:35 Creatinine 0.6 mg/dL (0.5-0.9) 04/19/22 12:35 GFR Calculation Not Reportable 04/19/22 12:35 Glucose 102 mg/dL (65-115) 04/19/22 12:35 Calculated Osmolality 285 mOsm/kg (285-295) 04/19/22 12:35 Calcium 9.3 mg/dL (8.5-10.5) 04/19/22 12:35 Total Bilirubin 0.2 mg/dL (0.15-1.2) 04/19/22 12:35 AST 19 U/L (0-32) 04/19/22 12:35 ALT 11 U/L (0-33) 04/19/22 12:35 Alkaline Phosphatase 87 U/L (35-105) 04/19/22 12:35 Troponin T Baseline 67 ng/L (0-10) H 04/19/22 12:35 Troponin T 120 Minute 265.8 ng/L (0-10) H 04/19/22 14:31 Delta Troponin T 198.8 ABS# (0-10) H* 04/19/22 14:31 NT-Pro-B Natriuret Pep 192 pg/mL (0-125) H 04/19/22 12:35 Total Protein 6.3 g/dL (6.6-8.7) L 04/19/22 12:35 Albumin 3.7 g/dL (3.5-5.2) 04/19/22 12:35 Globulin 2.6 g/dL (1.3-4.6) 04/19/22 12:35 Urine Color Yellow (Yellow) 04/19/22 15:08 Urine Appearance Hazy (CLEAR) A 04/19/22 15:08 Urine pH 8 (5-7) H 04/19/22 15:08 Ur Specific Mere[place] 1.010 (1.005-1.030) 04/19/22 15:08 Urine Protein Neg (Negative) 04/19/22 15:08 Urine Glucose (UA) Norm (Normal) 04/19/22 15:08 Urine Ketones 1+ (Negative) H 04/19/22 15:08 Urine Blood Neg (Negative) 04/19/22 15:08 Urine Nitrate Negative (Negative) 04/19/22 15:08 Urine Bilirubin Neg (Negative) 04/19/22 15:08 Prot Sulfosalicylic Acd Negative (Negative) 04/19/22 15:08 Urine Urobilinogen Norm mg/dL (Negative) 04/19/22 15:08 Ur Leukocyte Esterase Negative (Negative) 04/19/22 15:08 Urine RBC None /hpf (0-2) 04/19/22 15:08 Urine WBC Rare /hpf (0-5) 04/19/22 15:08 Ur Squamous Epith Cells Rare /hpf (0-5) 04/19/22 15:08 Amorphous Sediment 2+ /hpf 04/19/22 15:08 Urine Bacteria Trace /hpf (NONE) 04/19/22 15:08 Discharge Plan Discharge Patient Disposition: Admitted As Inpatient Admit Provider: Rahul Flood Clinical Impression: Acute non-ST elevation myocardial infarction (NSTEMI) Condition: Stable Coding Level of Care Code ED Ordering Machine Operator for Chg Fwd Exam Comprehensive Documented by User: Ector Michel DO 04/19/22 17:26 HPI - Chest Pain General: Chief Complaint: Chest Pain Stated Complaint: CHEST PAIN; BRADYCARDIA Time Seen by Provider: 04/19/22 10:55 History of Present Illness: 72-year-old female presenting with left-sided chest pain. Patient notes chest pain this morning. Has a history of coronary artery disease with cardiac stenting in 2010. Upon arrival she has resolution of chest pain. She denies pain or swelling her lower extremities. She denies history of blood clots. She denies recent travel or recent surgeries.Symptoms are unimproved or worsened by anything. Review of Systems General: Reports: 10 or more systems reviewed and unremarkable except in HPI and below PFSH ED PFSH: Medical History CAD (coronary artery disease) Chronic back pain Close exposure to COVID-19 virus Lower respiratory infection Osteoarthritis Smoking addiction Surgical History History of coronary artery stent placement 04/18/11 Family History Other CAD (coronary artery disease) Diabetes Hypertension Social History Smoking and tobacco status: current every day smoker cigarettes Packs smoked per day: 1 Years cigarettes smoked: 50 Alcohol intake: current Alcohol intake frequency: holidays/special occasions only Substance/Drug Use: never Lives independently: Yes Household members: none Marital status: / Physical Exam 2 Const: COMMON NORMALS: no acute distress, patient oriented x3 and alert GENERAL APPEARANCE: cooperative ORIENTATION/CONSCIOUSNESS: Yes awake, Yes oriented to person, Yes oriented to place and Yes oriented to time HENMT: COMMON NORMALS: normocephalic, atraumatic, external ears normal, Normal external nose present and moist oral mucous membranes HEAD & SCALP: normal to inspection, normocephalic and atraumatic NOSE: Normal external nose present GENERAL EAR: hearing grossly impaired EXTERNAL EAR: Yes external ears normal Eye: COMMON NORMALS: Equal, round and reactive pupils present, EOMs intact bilaterally, conjunctivae normal and no scleral icterus GENERAL EYE: appearance normal, both eyes and all related structures EYELID: eyelids normal CONJUNCTIVA: Yes conjunctivae normal SCLERA: sclerae normal PUPIL: Yes Equal, round and reactive pupils present Neck/C-Spine: COMMON NORMALS: full ROM, supple and no JVD GENERAL: Yes normal visual inspection Lymph: LYMPHATIC: no lymphadenopathy noted and no lymphedema noted Chest: COMMONS NORMALS: normal inspection of the chest Resp: COMMON NORMALS: normal respiratory effort, No retractions and No use of accessory muscles Cardio: COMMON NORMALS: no JVD, regular rate and regular rhythm RATE: regular rate RHYTHM: regular rhythm GI: COMMON NORMALS: Normal to inspection, nondistended, normoactive bowel sounds present : COMMON NORMALS: Yes no CVA tenderness BLADDER/KIDNEY EXAM: Yes no CVA tenderness Back/Pelvis: COMMON NORMALS: no CVA tenderness and thoracic and lumbar spine normal to inspection Extremity: COMMON NORMALS: normal to inspection, full ROM and capillary refill normal GENERAL: Yes normal exam except as noted Neuro: COMMON NORMALS: patient oriented x3, CN's II-XII intact bilaterally, moves all extremities, no focal motor deficits, no sensory deficits noted and gait normal SENSORIUM/ORIENTATION: Yes alert, Yes oriented to person, Yes oriented to place and Yes oriented to time Psych: COMMON NORMALS: mental status grossly normal, Normal thought process present, cooperative and normal affect THOUGHT PROCESS: Normal thought process present Skin: COMMON NORMALS: no rashes or lesions noted and no wounds GENERAL SKIN EXAM: no rashes or lesions noted Course Vital Signs: Vital signs: Vital Signs Temperature 98.0 F 04/19/22 19:00 Pulse Rate 58 L 04/19/22 20:00 Respiratory Rate 17 04/19/22 20:00 Blood Pressure 128/75 04/19/22 20:00 Pulse Oximetry 98 04/19/22 20:00 Oxygen Delivery Me thod 04/19/22 19:00 MDM - Chest Pain Medical Decision Making 72-year-old female presenting today with chest pain. EKG without evidence of acute ischemia. Initial troponin slightly elevated. Repeat troponin with significant delta increase. Patient with known coronary artery disease. Last catheterization in 2010. He is taking all medications as prescribed. Is currently chest pain-free. Due to significant elevation in troponin on delta. Will admit to the hospital for further cardiac restratification. Patient is an NSTEMI. Lab Data : 04/19/22 11:03 04/19/22 12:35 Radiology Impressions Chest X-Ray 04/19/22 10:56
[2022-04-19] MEDS: heparin 5,000 unit/mL INJ 1 mL IV (15:51)
[2022-04-19 15:59] LABS: Add Urine Microscopic? YES; Bilirubin Urine Neg (Negative); Blood Urine Neg (Negative); Glucose Urine UA Norm (Normal); Ketones Urine 1+ (Negative); Leukocyte Esterase Urine Negative (Negative); Nitrate Urine Negative (Negative); Protein Urine Neg (Negative); Sulfosalicylic Acid Urine Negative (Negative); Urine Appearance Hazy (CLEAR); Urine Color Yellow (Yellow); Urobilinogen Urine Norm (Negative); pH Urine 8 (5-7)
[2022-04-19] MEDS: heparin drip 25,000 UNIT/500 ML PREMIX 13.34 UNIT IV (15:59)
[2022-04-19 16:00] LABS: Amorphous Sediment Urine 2+ /hpf; Bacteria Urine TRACE /hpf; Squamous Epithelial Cell Urine RARE /hpf (0-5); WBC Urine RARE /hpf (0-5)
[2022-04-19 16:01] LABS: Add Urine Culture? No
--- NOTE | 2022-04-19 16:56 | ECG_ITS ---
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 Measurements Intervals Becker Rate: 54 P: 76 MN: 196 QRS: 2 QRSD: 94 T: 85 QT: 446 QTc: 426 Interpretive Statements SINUS BRADYCARDIA POSSIBLE LEFT ATRIAL ENLARGEMENT [-0.1mV P-WAVE IN V1/V2] POSSIBLE RIGHT VENTRICULAR CONDUCTION DELAY [RSR (QR) IN V1/V2] Compared to ECG 04/19/2022 13:10:21 ST (T wave) deviation no longer present Electronically Signed On 04-20-2022 8:34:17 CDT by Christine Rivera M.D. [id number]
--- NOTE | 2022-04-19 16:58 | PM.HP ---
Providers/Chief Complaint Admitting Physician: Rahul Flood Primary Care Provider: PABLO Allen Chief Complaint: CHEST PAIN; BRADYCARDIA History of Present Illness 72-year-old lady with history of CAD, s/p angioplasty and stenting of circumflex for 99% stenosis in 2010, long-term history of smoking presented after several hours of left-sided chest pain which started in her left hand traveled up to the left arm, progressed to the left chest, dull aching pain. She did not have any nitroglycerin at home, she took Excedrin this morning. She states she does not take aspirin but takes Excedrin every day instead. Sometimes several times a day as well as Tylenol for aches and pains, and chronic pain in her back which she states was thought to be due to arthritis by her doctor. She denies having had any nitroglycerin on the way to the hospital in EMS, but received morphine in ER which seemed to relieve the pain. Currently she is pain-free. She did not notice if the pain was affected by movement, inspiration, or other activity. She was at rest when it started. In ER noted with elevated baseline troponin 267 with positive delta of 198.8 up to 265 at 2 hours. EKG with sinus bradycardia at 50, nonspecific T wave abnormality. Chest x-ray with pulmonary hyperinflation, possible COPD, asthma or other obstructive lung disease. Persistent cardiomegaly. Perihilar nodule on the left similar to March 2020. Consider nonemergent CT chest for better characterization. While in ER she is asking if she initially states on discussion of further evaluation and treatment plan she does not want all these medications , stating she would rather go home. In discussion with her and her son again regarding CO and risks of untreated CO she is agreeable to stay for further evaluation and treatment. She understands that she is not here against her will, would be free to leave should she so choose but in doing so may risk complications of untreated CO including potentially severe or life-threatening complications which she states she understands. She understands we may offer treatments if they are known to be beneficial though she may decline if she does not agree to have them. Review of Systems Const: Denies: fever(s), chills, body aches or malaise Eyes: Denies: change in vision, eye discomfort or eye redness ENMT: Denies: throat pain, oral sores or ear or mastoid pain Card: Reports: chest pain; Denies: edema, pre-syncope or dyspnea on exertion Resp: Denies: dyspnea, productive cough, change in phlegm color or hemoptysis GI: Denies: abdominal pain, nausea, vomiting, diarrhea, constipation, hematochezia or melena : Denies: flank pain, urinary frequency or hematuria Musc: Reports: back pain (chronic); Denies: joint swelling or joint redness Skin/Breast: Denies: rash or new lesions Neuro: Denies: headache(s), numbness in extremities, weakness in extremities, dizziness, confusion or seizure-like activity Endo: Denies: polyuria or polydipsia Felipe/Lymph: Denies: easy bleeding or tender lymph nodes All/Imm: Denies: urticaria or tongue swelling Medications/Allergies Home Medications Medication Instructions Recorded Confirmed Last Taken Type acetaminophen 500 mg tablet 1,000 mg PO BEDTIME PRN Pain 03/18/20 04/19/22 03/17/20 History (Tylenol Extra Strength) aspirin 325 mg tablet 325 mg PO DAILY PRN Pain 03/18/20 04/19/22 04/19/22 History 650 MG [id number]-ufssklqqgkqgn-[id number] 250 2 tab PO BID 03/18/20 04/19/22 04/19/22 History mg-250 mg-65 mg tablet (Excedrin Extra Strength) Allergies Allergy/AdvReac Type Severity Reaction Status Date / Time Penicillins Allergy Intermediate sick Verified 10/28/21 11:02 azithromycin Allergy ADR-Abdominal Verified 10/28/21 11:03 [From Zithromax Z-Dre] Pain PFSH Acute PFSH: Medical History CAD (coronary artery disease) Chronic back pain Close exposure to COVID-19 virus Lower respiratory infection Osteoarthritis Smoking addiction Surgical History History of coronary artery stent placement 04/18/11 Family History Other CAD (coronary artery disease) Diabetes Hypertension Social History Smoking and tobacco status: current every day smoker cigarettes Packs smoked per day: 1 Years cigarettes smoked: 50 Alcohol intake: current Alcohol intake frequency: holidays/special occasions only Substance/Drug Use: never Lives independently: Yes Household members: none Marital status: / Vitals/I&O/Wt Last Vital Signs Temp 98.2 F 04/19/22 10:51 Pulse 75 04/19/22 14:45 Resp 22 H 04/19/22 14:45 BP 137/83 04/19/22 16:00 Pulse Ox 97 04/19/22 16:00 O2 Del Method 04/19/22 10:51 Weight last 48 hrs Weight 47.627 kg Physical Exam Narrative: Son accompanies her at bedside. Const: COMMON NORMALS: patient oriented x3 and alert GENERAL APPEARANCE: cooperative ORIENTATION/CONSCIOUSNESS: Yes awake HENMT: COMMON NORMALS: oropharynx normal Neck/C-Spine: COMMON NORMALS: no JVD Resp: COMMON NORMALS: normal respiratory effort and clear to auscultation bilaterally AUSCULTATION: clear to auscultation bilaterally Cardio: COMMON NORMALS: no JVD, regular rhythm, S1 normal heart sound present, S2 normal heart sound present and No murmurs present (Cardio) RHYTHM: regular rhythm HEART SOUNDS: S1 normal heart sound present and S2 normal heart sound present GI: COMMON NORMALS: Normal to inspection, nondistended, normoactive bowel sounds present, Soft to palpation and non-tender PALPATION: Yes Soft to palpation Extremity: COMMON NORMALS: no joint enlargement and no pedal edema Neuro: COMMON NORMALS: patient oriented x3 and moves all extremities SENSORIUM/ORIENTATION: Yes alert Skin: COMMON NORMALS: no rashes or lesions noted GENERAL SKIN EXAM: no rashes or lesions noted Data : 04/19/22 11:03 04/19/22 12:35 A&P Assessment and plan (1) Acute non-ST elevation myocardial infarction (NSTEMI): Prior history of left circumflex stent 2010. She reports has not been taking aspirin but has been taking Excedrin daily instead. Not on statin or beta-ventura. Continues to smoke about a pack a day, Several hours of left-sided chest pain with radiation to left arm this morning. Moderate troponin elevation with positive delta. Continue aspirin. He is started on anticoagulation. Start statin. Remote visit heart rate was in the 70s, beta-ventura discussed, but I see that otherwise rates dipped into the 40s, will hold beta-ventura for now. Assess TTE. Monitor on telemetry. Cardiology consultation. Status: Acute (2) Smoking addiction: Discussed smoking cessation with her for 4 minutes. States unsuccessfully tried in the past. States lets consider that has been tried, and does not consider trying again. Discussed with her risk of continued smoking including risk of progression of cardiovascular disease especially with known coronary disease, but also risk of stroke, malignancy and on there. She and her son verbalized understanding. Will provide nicotine replacement as needed. Status: Acute (3) Pulmonary nodule: Noted left hilar pulmonary nodule, consider nonemergent CT follow-up. Currently visualized on x-ray, similar to prior in 2020. Status: Acute (4) Pulmonary hyperinflation: Incidentally noted on x-ray. Longstanding smoking history. Consider outpatient pulmonary function test. Status: Acute Plan Chronic back pain: Reports that she takes Excedrin sometimes several times a day in addition to Tylenol. She request for Excedrin here, discussed with her that Excedrin is likely not available in the hospital, however, she will be receiving aspirin for other reasons as above, and we can offer other pain control options, including Tylenol, discussed with her lidocaine patch, capsaicin, K pad, discussed morphine for severe pain, she declines morphine for fear of addiction. Attestations Medical Necessity Statement*: Admission over 2 midnights is anticipated for assessment of management of NSTEMI in a lady with known coronary disease with prior stenting. Coding Level of Care Code Acute Industrial Tech Instructor for Tianna Barber Diagnoses Acute non-ST elevation myocardial infarction (NSTEMI) I21.4 Smoking addiction F17.200 Pulmonary nodule R91.1 Pulmonary hyperinflation R09.89
--- NOTE | 2022-04-19 17:23 | PC.NURSE ---
Arrived from ED, scooted self to bed from stretcher
--- NOTE | 2022-04-19 17:27 | USCV_ITS ---
Yoselyn Lund Age: 72 Gender: F : 1950 Exam Date: 04/19/2022 21:28 Ordering Phys: Rahul Flood MD Technologist: Stewart Garcia Exam Location: [facility] [place] Indication: NSTEMI BP: 124 / 73 HR: 104 Rhythm: Sinus Technical Quality: Adequate MEASUREMENTS (Male / Female) Normal Values 2D ECHO LV Diastolic Diameter PLAX 3.5 cm 4.2 - 5.9 / 3.9 - 5.3 cm LV Systolic Diameter PLAX 2.4 cm IVS Diastolic Thickness 0.9 cm 0.6 - 1.0 / 0.6 - 0.9 cm IVS Systolic Thickness 1.7 cm LVPW Diastolic Thickness 1.3 cm 0.6 - 1.0 / 0.6 - 0.9 cm LVPW Systolic Thickness 1.5 cm LV Ejection Fraction 2D Teich 60.3 % LV Ejection Fraction MOD 2C 78.5 % LV Ejection Fraction 2C AL 80.0 % LA Diameter 3.1 cm LA Width 2.8 cm LA Height 4.4 cm RA Width 2.7 cm RA Height 4.3 cm IVC Diameter 1.3 cm M-MODE Aortic Annulus Diameter 2.2 cm LA Ao Ratio MM 1.8 MV E Point Septal Separation 0.1 cm DOPPLER AV Peak Velocity 143.3 cm/s MV Area PHT 3.5 cm squared Mitral E to A Ratio 1.6 MV E' Velocity 57.5 cm/s Mitral E to MV E' Ratio 13.1 Mitral E to LV E' Lateral Ratio 13.6 Mitral E to LV E' Septal Ratio 12.7 TR Peak Velocity 177.4 cm/s TR Peak Gradient 12.6 mmHg TR Mean Velocity 141.9 cm/s TR Mean Gradient 8.5 mmHg TR Velocity Time Integral 53.2 cm Right Atrial Pressure 3.0 mmHg Pulmonary Artery Systolic Pressu 15.6 mmHg PV Peak Velocity 80.0 cm/s FINDINGS Left Ventricle Normal left ventricular size, systolic function and wall thickness, with no regional wall motion abnormalities. Left ventricular ejection fraction is estimated at 55 %. There is mild hypokinesis of mid anterolateral, mid inferolateral and apical lateral chavez. Normal diastolic function. Right Ventricle Normal right ventricular size and systolic function. Right ventricular systolic pressure 15.6 mmHg. Right Atrium Normal right atrial size. Right atrial pressure estimated at 3 mmHg. Left Atrium Normal left atrial size. Mitral Valve Mildly thickened mitral valve. No mitral valve stenosis. Trace mitral valve regurgitation. Aortic Valve Mildly thickened and calcified trileaflet aortic valve. No aortic valve stenosis. No aortic valve regurgitation. Tricuspid Valve Structurally normal tricuspid valve. No tricuspid valve stenosis. Trace to mild tricuspid valve regurgitation. Pulmonic Valve Pulmonic valve not well visualized. No pulmonary valve stenosis. Pericardium No pericardial effusion. Aorta Normal size aortic root and proximal ascending aorta. IVC Normal IVC dimension with >50% respiratory change of the inferior vena cava. CONCLUSIONS 1. Normal left ventricular size, systolic function and wall thickness, with no regional wall motion abnormalities. Left ventricular ejection fraction is estimated at 55 %. There is mild hypokinesis of mid anterolateral, mid inferolateral and apical lateral chavez. Normal diastolic function. 2. Normal right ventricular size and systolic function. 3. Trace to mild tricuspid valve regurgitation. 4. No prior similar studies to compare. Christine Rivera MD (Electronically Signed) Final Date: 20 April 2022 12:57 S
--- NOTE | 2022-04-19 17:51 | PC.NURSE ---
Patient informed this nurse she will not take a statin, she is aware of why she needs one but refuses to take them. Dr. Henriquez was notified
[2022-04-19] MEDS: nicotine 21 mg Patch 1 PATCH TRANSDERMA (18:06)
[2022-04-19] MEDS: acetaminophen 325 mg Tablet 1000 MG PO (18:06)
[2022-04-19 19:46] LABS: Troponin 5 6HR 854.3 ng/L (0-10); Troponin 5 6HR Delta 787.3 ng/L (0-12)
[2022-04-19] MEDS: atorvastatin 40 mg Tablet 80 MG PO (20:52)
--- NOTE | 2022-04-19 21:30 | PC.NURSE ---
1952 Dr. Ritchie notified of patient's increased Troponin, awaiting new orders 2105 patient requesting medication to assist sleep; Dr. Ritchie notified, awaiting new orders
[2022-04-19] MEDS: temazepam 15 mg Capsule PO (22:24)
[2022-04-19 22:29] LABS: Partial Thromboplastin Time 63.1 SECONDS (23.9-36.7)
[2022-04-20] VITALS (23 sets, daily range): BP systolic 91–156; BP diastolic 54–93; PULSE 51–77; RESP 9–26; TEMP 36.6–36.7; O2SAT 93–99
[2022-04-20] MEDS: acetaminophen 325 mg Tablet 1000 MG PO ×2 (03:09→13:57)
[2022-04-20 04:16] LABS: Basophils # 0.1 10^3/uL (0.0-0.1); Basophils % 0.7 %; Eosinophils # 0.1 10^3/uL (0.0-0.8); Hematocrit 38.2 % (37.0-47.0); Hemoglobin 12.3 g/dL (11.5-15.3); Lymphocytes # 2.7 10^3/uL (0.8-4.8); Lymphocytes % 39.1 %; Mean Corpuscular HGB Conc 32.2 g/dL (30.0-36.0); Mean Corpuscular Hemoglobin 31.1 pg (28.0-34.0); Mean Corpuscular Volume 96.7 fl (81-99); Mean Platelet Volume 10.2 fL (7.4-10.4); Monocytes # 0.7 10^3/uL (0.2-0.9); Monocytes % 9.9 %; Neutrophils # 3.34 10^3/uL (1.8-7.7); Neutrophils % 49.2 %; Nucleated Red Blood Cells % 0 %; Platelet Count 239 10^3/cmm (130-400); Red Blood Count 3.95 10^6/uL (4.1-5.3); Red Cell Distribution Width 13.3 % (12.1-15.1); White Blood Count 6.8 10^3/uL (4.0-10.0)
[2022-04-20 04:30] LABS: Partial Thromboplastin Time 61.1 SECONDS (23.9-36.7)
[2022-04-20 04:42] LABS: Anion Gap 12.8 (5-19); Blood Urea Nitrogen 15 mg/dL (8-23); Calcium 9.5 mg/dL (8.5-10.5); Carbon Dioxide 27 mmol/L (22-29); Chloride 104 mmol/L (98-107); Chol HDL Ratio 3.35 mg/dL (0.0-4.40); Cholesterol 184 mg/dL (0-200); Glucose 77 mg/dL (65-115); HDL Cholesterol 55 mg/dL (60-100); LDL Cholesterol Calculated 108 mg/dL (50-129); LDL HDL Ratio 1.96 RATIO (0.00-3.22); Osmolality Calculated 290 mOsm/kg (285-295); Potassium 3.8 mmol/L (3.5-5.1); Sodium 140 mmol/L (136-145); Triglycerides 104 mg/dL (0-150)
[2022-04-20 04:49] LABS: Estmated Average Glucose 108; Hemoglobin A1C 5.4 % (4.0-6.0)
[2022-04-20] MEDS: aspirin 325 mg Tablet PO (07:58)
[2022-04-20] MEDS: lidocaine 5% Patch 1 PATCH TOPICAL (07:59)
--- NOTE | 2022-04-20 08:53 | P.CONIM_ITS ---
Providers/Reason For Consult Consulting Physician/Specialty*: Dr. Rivera, Cardiology Reason for Consult*: NSTEMI Attending Physician: Rahul Flood Primary Care Provider: PABLO Allen History of Present Illness History of Present Illness Yoselyn Lund is a 72 year old female with PMHx of CAD s/p angioplasty and stent placement to distal circumflex for 99% stenosis in 04/18/2011 and 50 PKY h/o smoking. She continues to smoke 1 PPD. She started having achiness in her left wrist that is spread to her left forearm left arm and the left side of her chest. Chest pain described as achiness and lasted until she came to the ER and received morphine. No chest discomfort overnight or this morning. Initial EKG showed T wave inversion and ST depression in 1 and aVL and downsloping ST depression in V3 to V6. Baseline troponin T increased from 67 at 2 hours to 266 and at 6 hours to 854. Hemoglobin A1c 5.4. Lipid panel triglyceride 104, total cholesterol 184, LDL 108 and HDL 55. Review of Systems Const: Denies: fatigue Eyes: Denies: change in vision ENMT: Denies: throat pain, bleeding gums or epistaxis Card: Reports: chest pain; Denies: palpitations, irregular heart rhythm, edema, swelling of feet/ankles, lightheadedness, syncope, pre-syncope, dyspnea on exertion or orthopnea Resp: Denies: dyspnea, productive cough or non-productive cough GI: Denies: abdominal pain, nausea, vomiting, hematemesis, diarrhea, constipation or hematochezia : Denies: dysuria or hematuria Musc: Denies: back pain, extremity swelling, joint pain or muscle weakness Skin/Breast: Denies: rash Neuro: Denies: dizziness Psych: Denies: anxiety or depression Endo: Denies: tired all the time Felipe/Lymph: Denies: easy bruising or easy bleeding Medications/Allergies Home Medications Medication Instructions Recorded Confirmed Last Taken Type acetaminophen 500 mg tablet 1,000 mg PO BEDTIME PRN Pain 03/18/20 04/19/22 03/17/20 History (Tylenol Extra Strength) aspirin 325 mg tablet 325 mg PO DAILY PRN Pain 03/18/20 04/19/22 04/19/22 History 650 MG spkolkw-fehoxetyussky-qhhuaarc 250 2 tab PO BID 08/11/0204/19/22 04/19/22 History mg-250 mg-65 mg tablet (Excedrin Extra Strength) Allergies Allergy/AdvReac Type Severity Reaction Status Date / Time Penicillins Allergy Intermediate sick Verified 10/28/21 11:02 azithromycin Allergy ADR-Abdominal Verified 10/28/21 11:03 [From Zithromax Z-Dre] Pain Current Medications Generic Name Dose Route Start Last Admin Trade Name Freq PRN Reason Stop Dose Admin Acetaminophen 1,000 mg 04/19/22 17:27 04/20/22 03:09 Acetaminophen 325 Mg Tablet PO 1,000 mg TID PRN Administration Mild/Mod Pain Or Temp >/= 101 Aspirin 325 mg 04/20/22 09:00 04/20/22 07:58 Aspirin 325 Mg Tablet PO 325 mg DAILY MARCOS Administration Atorvastatin Calcium 80 mg 04/19/22 21:00 04/19/22 20:52 Atorvastatin 40 Mg Tablet PO 80 mg BEDTIME MARCOS Administration Heparin Sodium (Porcine) 0 unit 04/19/22 15:16 04/19/22 15:51 Heparin 5,000 Unit/Ml Inj 1 Ml IV 2,400 unit PRN PRN Administration Heparin weight-base protocol Protocol Heparin Sodium/Sodium Chloride 25,000 unit in 500 mls @ 0 mls/hr 04/19/22 15:30 04/19/22 15:59 Heparin Drip IV 14 unit/kg/hr .Q0M MARCOS 13.34 mls/hr Administration Protocol Per Protocol Lidocaine 1 patch 04/19/22 21:00 04/20/22 07:59 Lidocaine 5% Patch TOPICAL 1 patch [id number] MARCOS Administration Nicotine 1 patch 04/19/22 17:33 04/19/22 18:06 Nicotine 21 Mg Patch TRANSDERMA 1 patch DAILY PRN Administration WITHDRAWAL Temazepam 15 mg 04/19/22 22:03 04/19/22 22:24 Temazepam 15 Mg Capsule PO 15 mg BEDTIME PRN Administration INSOMNIA PFSH Acute PFSH: Medical History CAD (coronary artery disease) Chronic back pain Close exposure to COVID-19 virus Lower respiratory infection Osteoarthritis Smoking addiction Surgical History History of coronary artery stent placement 04/18/11 Family History Other CAD (coronary artery disease) Diabetes Hypertension Social History Smoking and tobacco status: current every day smoker cigarettes Packs smoked per day: 1 Years cigarettes smoked: 50 Alcohol intake: current Alcohol intake frequency: holidays/special occasions only Substance/Drug Use: never Lives independently: Yes Household members: none Marital status: / Vitals/I&O/Wt Last Vital Signs Temp 98.1 F 04/20/22 04:00 Pulse 72 04/20/22 08:00 Resp 21 H 04/20/22 08:00 BP 120/78 04/20/22 08:00 Pulse Ox 97 04/20/22 08:00 O2 Del Method 04/20/22 08:00 04/19/22 04/20/22 04/20/22 22:59 06:59 14:59 Intake Total 320 / 320 150 / 470 0 / 0 Output Total 400 / 400 750 / 1150 200 / 200 Balance -80 / -80 -600 / -680 -200 / -200 Weight last 48 hrs Weight 95 lb 3.835 oz Weight 105 lb Physical Exam Narrative: GENERAL: Frail lady laying in bed in no acute distress HEENT: Extraocular movement intact. No pallor or icterus. NECK: central trachea, No JVD, No carotid bruit. CARDIOVASCULAR SYSTEM: S1-S2 regular. No murmur rubs or gallops. RESPIRATORY SYSTEM: Chest clear to auscultation, prolonged expiration. No wheezes rhonchi or rubs heard. No use of accessory muscles. ABDOMEN: Soft, nontender and nondistended. Normal bowel sounds present. No hepatosplenomegaly appreciated. EXTREMITIES: No cyanosis or edema]. No signs of chronic venous insufficiency. RURAL SOCIOLOGIST: Patient is alert oriented ?3. No focal neurological deficits. Cranial nerves intact. SKIN: Normal turgor and temperature. No breakdown, rash or nail changes noted. PSYCH: Normal insight and judgment. Data : 04/20/22 03:45 04/20/22 03:45 A&P Assessment and plan (1) Acute non-ST elevation myocardial infarction (NSTEMI): Echo showed mild hypokinesis in mid to apical anterior apical and anteroseptal chavez. LVEF 50-55% -Plan to proceed with coronary angiogram later today. Risks and benefits were discussed with the patients. Possible complications including risk of heart attack stroke and , coronary perforation, arrhythmia, cardiac tamponade in urgent CABG were discussed with the patient as well. Received aspirin and loading dose of Brilinta this morning. Continue statins and beta-ventura was held yesterday because of bradycardia with heart rate is in 50s. -She is on heparin drip. Status: Acute (2) Hyperlipidemia: Status: Acute (3) Smoker: Status: Acute Plan Chronic back pain knees Osteoarthritis Coding Level of Care Code Acute Talking Books Library Clerk for [facility] Fwd Diagnoses Acute non-ST elevation myocardial infarction (NSTEMI) I21.4 Hyperlipidemia E78.5 Smoker F17.200
--- NOTE | 2022-04-20 09:00 | XACV_ITS ---
Exam Room: 2 Ht: 165 cm Wt: 43 kg BSA: 1.39 m2 Gender: Female : 1950 Any Known Allergies: Other Exam Priority: Routine Procedure(s): Procedure Description: Diagnostic procedure Procedure Description: PCI procedure Procedure Description: Left Heart Catheterization Procedure Description: Drug Eluting Coronary Stent Procedure Description: PTCA Procedure Description: Coronary Angiography Diagnostic Cath Status: Urgent Diagnostic Findings * Coronary angiography shows right dominance. * Left Main has no disease. * Mid LAD has * 40 to 50% stenosis. * Mid Circumflex: obstructive 95% stenosis proximal to previously placed stent, EARNEST: 3 flow. Patent mid to distal circumflex stent. * Ostial Right Coronary Artery has moderate 50% stenosis. Minor irregularity noted in mid and distal right coronary artery. PCI Status: Urgent PCI Indication: NSTE - ACS Interventional Findings * Procedure detail: We engaged left main artery with XB 3.0 guide catheter. IV heparin was administered to maintain ACT above 250s. Initially we attempted to cross the left circumflex artery stenosis with run-through wire. However it could not cross. We then used a remotely piloted vehicle controller 50 guidewire to cross into the distal vessel. Lesion was predilated with 2.5 x 12 mm semicompliant balloon. We then placed a 2.75 x 18 mm resolute Marilyn drug-eluting stent. At this time final angiogram was performed that showed excellent stent expansion, no residual stenosis and EARNEST-3 flow. Guidewire and guide catheter were removed. Patient left the Pig Breeder in a stable condition. * Mid Circumflex: 70% stenosis treated with a AB TREK 2.50X12 RX BALLOON, and HERON Holguin MARILYN 2.75X18 EVER. Conclusions 1. Critical mid left circumflex artery stenosis s/p successful revascularization with EVER x1. 2. Moderate ostial RCA stenosis. Can consider outpatient stress test to rule out ischemia in RCA territory. Recommendations * Return to inpatient for close monitoring and routine cath care. * Dual antiplatelet therapy for at least 1 year. * High intensity statin therapy. * Outpatient cardiology follow up in 4 weeks. Interventional RX Recommendation: PCI w/o planned CABG Diagnostic RX Recommendation: PCI w/o planned CABG Pressures Phase:Rest AO : 142 / 77 ( 105 ) @ 1:13:00 PM 136 / 82 ( 105 ) @ 1:24:00 PM 100 / 67 ( 81 ) @ 1:24:00 PM 135 / 11 ( 51 ) @ 1:26:00 PM 136 / 12 ( 50 ) @ 1:26:00 PM 158 / 76 ( 110 ) @ 1:28:00 PM 160 / 77 ( 111 ) @ 1:28:00 PM 137 / 84 ( 109 ) @ 1:41:00 PM 143 / 72 ( 101 ) @ 2:02:00 PM LV : 154 / -9 / 20 @ 1:27:00 PM 157 / -8 / 20 @ 1:28:00 PM Valves Phase:DefaultPhase AV : 0.0 @ 1:17:26 PM AV Mean Gradient: 0.0 @ 1:17:26 PM Clinical Evaluation EBL: 5mL-10mL Procedural Details Procedure Consent Obtained. Current Diagnosis : NSTEMI. Pre-Procedure Time Out. Identified patient by full name and date of as verbalized by the patient/guarantor. Does the consent match the physician's order: Yes. Accurate & Complete Informed Consent: Yes. Inpatient/Outpatient History & Physical on Chart: Yes. If H&P is completed, is and addenduem needed: No. Relevant Radiology Images available: Yes. The risks, benefits, and alternatives of sedation and/or procedure were discussed by physician. The patient agrees to continue. Procedure started. [facility] Clinical Fraility Score: 3: Managing Well. Pig Breeder Indications: ACS > 24 hours. Chest Pain Symptom Assessment: Typical Angina Symptoms. Cardiovascular Instability: No. Correct patient, site and procedure confirmed by cath team. Current diagnosis: NSTEMI. PERRLA. Strong, equal hand head correction officer bilaterally. Lungs clear x 5 lobes. IV Site on Arrival: 20 gauge in the left forearm. IV Fluids: 0.9% NaCl at KVO. 100 mL infused prior to track repair laborer. Pre Procedural Pulses: bilateral radial was 2+. Oxygen started at 2liters/min via nasal canula. right groin was prepped with chloroprep then draped in the usual sterile fashion. right radial was prepped with chloroprep then draped in the usual sterile fashion. Physician notified. Baseline sample Acquired. HR: 49 BPM. Patient's son, Marek, is in the track repair laborer Waiting Room. Dr. Rivera will update at the completion of the case. Equipment: 6F - Radial. Cardiac Cath Pack. ACIST Manifold Kit Model BT 2000. Heparinized Saline (2 units/mL), 1000 mL bag. Physician arrived. Physician scrubbed in. Immediate Pre-Procedure Time Out. Correct Patient: Yes; Correct Procedure: Yes; Correct Site: Yes; Correct Patient Position: Yes; Correct Supplies: Yes; Dried Flammable Prep: Yes; Blood Products Available: N/A;. Lidocaine 1% infiltrated to the right radial. Arterial access obtained. A 5 chadian TIG catheter in over the standard J wire. Cine of the LCA performed. Catheter removed over the standard J wire. A 5 chadian JL4.5 catheter in over the standard J wire. Multiple views taken of left coronary artery. Dr. Alejandro asked to view cineography per Dr. Rivera. Catheter removed over the standard J wire. A 5 chadian TIG catheter in over the standard J wire. Multiple views taken of right coronary artery. Catheter redirected to the LV. EDP Sample taken: LV 154/-9,20; HR: 59 BPM; SpO2: 100%. Pullback taken: LV 157/-9,20; AO 158/76(110); Mean: 0mmHg, Peak to Peak: 0mmHg, SEP: 14sec/min; HR: 60 BPM; SpO2: 100%. Catheter removed over the standard J wire. Flushing the side port of sheath with heparinized saline to maintain patency. Add inventory: Endoflator, Co-Wire Coater. Dr. Alejandro here to view cineography. Dr. Rivera scrubbed out. Dr. Alejandro scrubbed in to perform intervention. PCI Indication: NSTE. Patient's family updated. 6 chadian XB 3.5 guide catheter was inserted over the wire. Unable to advance the catheter over the standard J wire. Standard J wire out. Hand injection of the right arm done through the catheter. 0.035 260cm Stiff Angled Glidewire in to advance the catheter. Glidewire out. Runthrough guidewire was advanced through the guide catheter to lesion in the mid Circ. Wire Coater 50 guidewire was advanced through the guide catheter to lesion in the mid Circ. Runthrough guidewire out. Inflation number : 1 A AB TREK 2.50X12 RX BALLOON was prepped and advanced across the Mid CX , then inflated to 12 HERMILA for 0:22 seconds. Balloon out. Marilyn 2.75 x 18 EVER in and unable to cross, removed intact. GuideLiner in over the Wire Coater 50 wire. Inflation Number : 2 A HERON Holguin MARILYN 2.75X18 EVER -Lot Number# [id number] was prepped and advanced across the Mid CX. The stent was deployed at 12 HERMILA for 0:21 seconds. Exp 2024-12-19. Stent balloon out over wire. Results checked. GuideLiner out. Results checked. Wire out. ACT drawn. Results 210 seconds. Therapeutic limits - pre-heparin administration 90-150 seconds and monitoring heparin during a vascular procedure >250 seconds. Results checked. Guide catheter out. A TR Band was successful obtaining hemostatsis at the Right Radial artery insertion site. Dr. Alejandro scrubbed out. TR band placed. Hemostasis obtained. Post Procedure: Pulses reassessed and unchanged. PERRLA. Strong, equal hand head correction officer bilaterally. No VTE prophylaxis required. Medication's Wasted: Lidocaine 1% = 1 mL. Medication's Wasted: Nitro = 49.4 mg. Medication's Wasted: Heparin = 3000 units. Total IV fluids: 98 mL. Post-op diagnosis: In-Stent stenosis of the mid CX, S/P PTCA and EVER. Complications: none. Estimated blood loss: 5mL-10mL. Responsiveness - Normal response to verbal stimuli; alert and oriented, PERRLA. Airway - Unaffected, no intervention required; spontaneous ventilation. Circulation: W/N/L, pulses unchanged. Nausea/Vomiting: No. Procedure completed. Vital chart was stopped. Patient transferred by bed to ICU. Access Site Site: Right Radial artery Sheath Size: 6 Fr Hemostasis Method: TR Band Hemostasis Success: Successful Procedure Medications Start: 12:02 PM Stop: 12:02 PM Medication: Versed Amount: 1 mg Route: I.V. Start: 12:02 PM Stop: 12:02 PM Medication: Fentanyl Amount: 25 mcg Route: I.V. Start: 12:10 PM Stop: 12:10 PM Medication: Nitrogylcerin Amount: 200 mcg Route: I.A. Start: 12:13 PM Stop: 12:13 PM Medication: Versed Amount: 1 mg Route: I.V. Start: 12:22 PM Stop: 12:22 PM Medication: Heparin Amount: 5000 units Route: I.V. Start: 12:34 PM Stop: 12:34 PM Medication: Versed Amount: 1 mg Route: I.V. Start: 12:34 PM Stop: 12:34 PM Medication: Fentanyl Amount: 25 mcg Route: I.V. Start: 12:34 PM Stop: 12:34 PM Medication: Nitrogylcerin Amount: 200 mcg Route: I.A. Start: 12:39 PM Stop: 12:39 PM Medication: Heparin Amount: 1000 units Route: I.V. Start: 1:02 PM Stop: 1:02 PM Medication: Fentanyl Amount: 25 mcg Route: I.V. Start: 1:04 PM Stop: 1:04 PM Medication: Nitrogylcerin Amount: 200 mcg Route: I.C. Start: 1:06 PM Stop: 1:06 PM Medication: Heparin Amount: 2000 units Route: I.V. I, the attending physician, have reviewed and verified all procedure medications. Yes, all medications given per verbal order History/Risk Factors Hypertension: Yes Dyslipidemia: Yes Peripheral Arterial Disease (PAD): No Myocardial Infarction (NC): Yes Obesity: No Renal Disease: No Tobacco Use: Current/Recent(w/in 1 year) Prior Interventions PCI: Yes CABG: No Valve Surgery: No Date of PCI: 04/18/2011 Report Signatures Interventional Workflow Finalized by Jero Alejandro MD on 04/30/2022 09:56 AM Diagnostic Workflow Finalized by Christine Rivera MD on 04/29/2022 10:08 AM
[2022-04-20] MEDS: ticagrelor 90 mg Tablet 180 MG PO (10:16)
[2022-04-20] MEDS: sodium chloride 0.9% 1,000 ML 50 ML IV (10:17)
--- NOTE | 2022-04-20 10:21 | PC.CHAP ---
Pastoral Care Encounter/Spiritual Assessment Type of Contact [] Declined tire classifier visit [] Patient/Family/Request visit [] Outpatient visit [] Follow-up visit [] Physician referral [] Code/Alert [x] Routine visit [] Staff referral [] Actively dying [] Patient sleeping [x] Family support [] [] Out of room [] Palliative care [] [] Receiving care in room [] Pre-surgical visit [] Trauma [] Long length of stay [x] ICU visit [] Other: Relational/Emotional Strength [] Patient feels connected with others/family/visitors/staff [] Distress [] Loneliness/isolation [] Abandonment Spirituality of Patient [] Person of Margarita [] Attends Confucianist of their Margarita [] Believes in Prayer [] Reads Bible or Samaritan materials [] There are Spiritual issues to be addressed Air Value Tester Interventions [x] Prayer [] Active listening [] Non-anxious presence [] Spiritual/emotional support [] Crisis/trauma care [] Spiritual counseling [] Bereavement support [] Provided bereavement packet [] Provided Bible/devotional materials [] Provided toy/stuffed animal, coloring book to patient or family member [] Provided Communion [] Anointing/[place] [] Salvation [x] Completed spiritual assessment [] Other: Impact on Illness or Injury [] Angry [] Fearful [] Anxious [] Often cries [] Exhaustion [] Unable to work [] Unable to attend scientology [] Unable to walk/stand [] Unable to read [] Unable to drive [] Unable to eat/drink [] Unable to sleep [] Unable to be with family [] Patient intubated [] Other: Summary PT not a happy person... not social at all.... prayed outside of room Time spent with patient
[2022-04-20 10:47] LABS: Partial Thromboplastin Time 61.8 SECONDS (23.9-36.7)
[2022-04-20] MEDS: diphenhydrAMINE 50 mg Capsule PO (11:09)
--- NOTE | 2022-04-20 13:08 | PM.PN ---
Subjective Subjective: This morning she reports she is doing well. Has not had any further chest pain. Discussed with her further rise in troponin last night. She denies any other symptoms. Vitals/I&O/Wt Last Vital Signs Temp 98.1 F 04/20/22 04:00 Pulse 72 04/20/22 08:00 Resp 21 H 04/20/22 08:00 BP 120/78 04/20/22 08:00 Pulse Ox 97 04/20/22 08:00 O2 Del Method 04/20/22 08:00 04/19/22 04/20/22 04/20/22 22:59 06:59 14:59 Intake Total 320 / 320 150 / 470 255.461 / 255.461 Output Total 400 / 400 750 / 1150 200 / 200 Balance -80 / -80 -600 / -680 55.461 / 55.461 Weight last 48 hrs Weight 43.2 kg Weight 47.627 kg Physical Exam Const: COMMON NORMALS: patient oriented x3 and alert GENERAL APPEARANCE: cooperative ORIENTATION/CONSCIOUSNESS: Yes awake HENMT: COMMON NORMALS: oropharynx normal Neck/C-Spine: COMMON NORMALS: no JVD Resp: COMMON NORMALS: normal respiratory effort and clear to auscultation bilaterally AUSCULTATION: clear to auscultation bilaterally Cardio: COMMON NORMALS: no JVD, regular rhythm, S1 normal heart sound present, S2 normal heart sound present and No murmurs present (Cardio) RHYTHM: regular rhythm HEART SOUNDS: S1 normal heart sound present and S2 normal heart sound present GI: COMMON NORMALS: Normal to inspection, nondistended, normoactive bowel sounds present, Soft to palpation and non-tender PALPATION: Yes Soft to palpation Extremity: COMMON NORMALS: no joint enlargement and no pedal edema Neuro: COMMON NORMALS: patient oriented x3 and moves all extremities SENSORIUM/ORIENTATION: Yes alert Skin: COMMON NORMALS: no rashes or lesions noted GENERAL SKIN EXAM: no rashes or lesions noted Data : 04/20/22 03:45 04/20/22 03:45 A&P Assessment and plan (1) Acute non-ST elevation myocardial infarction (NSTEMI): Currently undergoing further assessment with cardiology with coronary angiogram. Prior history of left circumflex stent 2010. She reports has not been taking aspirin but has been taking Excedrin daily instead. Not on statin or beta-ventura. Continues to smoke about a pack a day, Several hours of left-sided chest pain with radiation to left arm on presentation. Continued troponin elevation with positive delta. Status: Acute (2) Smoking addiction: She has tried quitting in the past unsuccessfully and has not interested in trying again. Follow-up with primary provider. Status: Acute (3) Pulmonary nodule: Noted left hilar pulmonary nodule, consider nonemergent CT follow-up. Currently visualized on x-ray, similar to prior in 2019. At discharge please arrange follow-up with primary provider. Status: Acute (4) Pulmonary hyperinflation: Incidentally noted on x-ray. Longstanding smoking history. Consider outpatient pulmonary function test. Status: Acute Plan Chronic back pain: Reports that she takes Excedrin sometimes several times a day in addition to Tylenol. She request for Excedrin here, discussed with her that Excedrin is likely not available in the hospital, however, she will be receiving aspirin for other reasons as above, and we can offer other pain control options, including Tylenol, discussed with her lidocaine patch, capsaicin, K pad, discussed morphine for severe pain, she declines morphine for fear of addiction. Attestations Medical Necessity Statement*: Continue admission for assessment of management of NSTEMI. Coding Level of Care Code Acute Executive Administrator for [employer]na Barber Diagnoses Acute non-ST elevation myocardial infarction (NSTEMI) I21.4 Smoking addiction F17.200 Pulmonary nodule R91.1 Pulmonary hyperinflation R09.89
[2022-04-20] MEDS: ondansetron 2 mg/ML SDV 2 mL 4 MG IVP (15:19)
--- NOTE | 2022-04-20 15:29 | PC.NURSE ---
Hematoma to RIGHT radial site is extending. TR band still on and site is oozing. Dr. Rivera and Javon called to room to assess.
[2022-04-20] MEDS: HYDROcodone-acetaminophen 5-325 mg Tablet 1 TAB PO ×2 (15:35→19:48)
[2022-04-20 16:45] LABS: Partial Thromboplastin Time > 250.0 SECONDS (23.9-36.7)
[2022-04-20 19:41] LABS: Partial Thromboplastin Time 50.9 SECONDS (23.9-36.7)
[2022-04-20] MEDS: temazepam 15 mg Capsule PO (20:12)
[2022-04-20] MEDS: atorvastatin 40 mg Tablet 80 MG PO (20:12)
--- NOTE | 2022-04-20 21:17 | PC.NURSE ---
TR bands x [address] on right wrist. Large hematoma noted and has been outlined with marker by previous nurse. No spread in bruising appreciated at this time. Awaiting PTT results prior to removing air from TR band.
--- NOTE | 2022-04-20 21:21 | PC.NURSE ---
Per report 8 mls of air in TR bands at shift change. 1 ml of air removed at 2014, and again at 2105. Hematoma and bruising remain unchanged. Pt denies any change in sensation of right arm or hand.
[2022-04-20] MEDS: ticagrelor 90 mg Tablet PO (22:56)
--- NOTE | 2022-04-20 23:38 | PC.NURSE ---
1 mL of air removed form TR band at 2136 and 2200. Hematoma feels to be softer and bruising is unchanged from previous assessment. No active bleeding noted. Sensation in right hand and arm normal. Right upper extremity remains warm to touch.
[2022-04-21] VITALS (10 sets, daily range): BP systolic 104–126; BP diastolic 65–74; PULSE 63–82; RESP 20–23; O2SAT 95–98
--- NOTE | 2022-04-21 00:17 | PC.NURSE ---
Remaining air removed from TR bands. Hematoma/bruising unchanged. Pt resting quietly in bed with eyes closed. Respirations are even and unlabored. No complaints of pain at this time.
--- NOTE | 2022-04-21 03:05 | PC.NURSE ---
Right forearm hematoma has not increased in size, but has become more bruised. Sensation is normal. No bleeding noted. TR bands have been removed.
[2022-04-21 04:27] LABS: Basophils % 0.4 %; Hematocrit 39.1 % (37.0-47.0); Hemoglobin 11.6 g/dL (11.5-15.3); Lymphocytes # 1.1 10^3/uL (0.8-4.8); Lymphocytes % 16.1 %; Mean Corpuscular HGB Conc 29.7 g/dL (30.0-36.0); Mean Corpuscular Hemoglobin 32.2 pg (28.0-34.0); Mean Corpuscular Volume 108.6 fl (81-99); Mean Platelet Volume 11.2 fL (7.4-10.4); Monocytes # 0.4 10^3/uL (0.2-0.9); Monocytes % 6.3 %; Neutrophils # 5.22 10^3/uL (1.8-7.7); Neutrophils % 76.9 %; Nucleated Red Blood Cells % 0 %; Platelet Count 143 10^3/cmm (130-400); Red Cell Distribution Width 14.2 % (12.1-15.1); White Blood Count 6.8 10^3/uL (4.0-10.0)
[2022-04-21 04:53] LABS: Blood Urea Nitrogen 23 mg/dL (8-23); Calcium 9.5 mg/dL (8.5-10.5); Carbon Dioxide 21 mmol/L (22-29); Chloride 103 mmol/L (98-107); Glucose 95 mg/dL (65-115); Osmolality Calculated 287 mOsm/kg (285-295); Sodium 137 mmol/L (136-145)
--- NOTE | 2022-04-21 07:06 | PM.DCS ---
Discharge Providers Date of Admission: 04/19/22 15:19 Date of Discharge: April 21, 2022 Attending Provider at Admission: Rahul Flood Attending Provider at Discharge: Christiano Carvajal MD Primary Care Provider: PABLO Allen Diagnoses at Discharge Discharge Diagnosis (1) Acute non-ST elevation myocardial infarction (NSTEMI): Status: Acute (2) Smoking addiction: Status: Acute (3) Pulmonary nodule: Status: Acute (4) Pulmonary hyperinflation: Status: Acute Reason for Visit Reason for Visit: CHEST PAIN; BRADYCARDIA Hospital Course Hospital Course Yoselyn is a 72-year-old white female who presented to the hospital on April 19 with chest discomfort. She had previous history of circumflex stenting. She was found to have elevated troponin, consistent with non-ST elevation myocardial infarction. She was fully anticoagulated, loaded with Brilinta, given aspirin, and statin was initiated. Beta-ventura was tried but unfortunately she could not tolerate secondary to bradycardia. She was encouraged not to smoke. A pulmonary nodule was noted on her chest x-ray, similar to 2019. She will be encouraged to follow-up with her primary care provider for consideration of nonemergent CT. Cardiology was consulted, and she underwent angiogram on April 20. She received a drug-eluting stent in her circumflex. Full report is pending, please refer to this for details when available. On April 21 she was at without chest discomfort. Mild bruising around the right radial artery insertion site but no evidence of dysfunction of the hand, numbness or tingling. She was therefore discharged home. She was given an opportunity to ask questions, and she agreed with the plan. Physical Exam Narrative: General exam no Extremities no cyanosis clubbing or edema. Some bruising, right radial artery insertion site. Full function of the hand, including nerve function is noted. Discharge Data Studies Completed and Pending Completed Studies During Hospitalization Category Date Time Status XR chest 1V portable [id number] Stat Exams 04/19/22 10:56 Completed CV. echo complete* [id number] Routine Ultrasound 04/19/22 17:27 Completed Pending at discharge Category Date Time Status INTEGRATED CIRCUIT LAYOUT DESIGNER request for service Routine Exams 04/20/22 09:00 Taken Basic Metabolic Panel AM LABS Lab 04/22/22 04:00 Ordered Complete Blood Count w/Auto AM LABS Lab 04/22/22 04:00 Ordered Platelet Count Q2D Lab 04/23/22 04:00 Ordered Radiology Impressions Chest X-Ray 04/19/22 10:56 IMPRESSION: 1. Pulmonary hyperinflation; query COPD, asthma or other obstructive lung disease. 2. Persistent cardiomegaly. 3. Perihilar nodule on the left similar to March 2020. Consider nonemergent CT chest to better characterize. Laboratory Results WBC 6.8 10^3/uL (4.0-10.0) 04/21/22 03:30 RBC 3.60 10^6/uL (4.1-5.3) L 04/21/22 03:30 Hgb 11.6 g/dL (11.5-15.3) 04/21/22 03:30 Hct 39.1 % (37.0-47.0) 04/21/22 03:30 MCV 108.6 fl (81-99) H D 04/21/22 03:30 MCH 32.2 pg (28.0-34.0) 04/21/22 03:30 MCHC 29.7 g/dL (30.0-36.0) L D 04/21/22 03:30 RDW 14.2 % (12.1-15.1) 04/21/22 03:30 Plt Count 143 10^3/cmm (130-400) D 04/21/22 03:30 MPV 11.2 fL (7.4-10.4) H 04/21/22 03:30 Neut % (Auto) 76.9 % 04/21/22 03:30 Lymph % (Auto) 16.1 % 04/21/22 03:30 [place] % (Auto) 6.3 % 04/21/22 03:30 Eos % (Auto) 0.0 % 04/21/22 03:30 Baso % (Auto) 0.4 % 04/21/22 03:30 Neut # (Auto) 5.22 10^3/uL (1.8-7.7) 04/21/22 03:30 Lymph # (Auto) 1.1 10^3/uL (0.8-4.8) 04/21/22 03:30 [place] # (Auto) 0.4 10^3/uL (0.2-0.9) 04/21/22 03:30 Eos # (Auto) 0.0 10^3/uL (0.0-0.8) 04/21/22 03:30 Baso # (Auto) 0.0 10^3/uL (0.0-0.1) 04/21/22 03:30 Nucleated RBC % (auto) 0 % 04/21/22 03:30 Nucleated RBCs # 0.0 /100WBC 04/21/22 03:30 APTT 50.9 SECONDS (23.9-36.7) H D 04/20/22 18:55 Sodium 137 mmol/L (136-145) 04/21/22 03:30 Potassium 4.0 mmol/L (3.5-5.1) 04/21/22 03:30 Chloride 103 mmol/L (98-107) 04/21/22 03:30 Carbon Dioxide 21 mmol/L (22-29) L 04/21/22 03:30 Anion Gap 17.0 (5-19) 04/21/22 03:30 BUN 23 mg/dL (8-23) 04/21/22 03:30 Creatinine 0.5 mg/dL (0.5-0.9) 04/21/22 03:30 GFR Calculation Not Reportable 04/21/22 03:30 Glucose 95 mg/dL (65-115) 04/21/22 03:30 Estimat Average Glucose 108 04/20/22 03:45 Hemoglobin A1c 5.4 % (4.0-6.0) 04/20/22 03:45 Calculated Osmolality 287 mOsm/kg (285-295) 04/21/22 03:30 Calcium 9.5 mg/dL (8.5-10.5) 04/21/22 03:30 Total Bilirubin 0.2 mg/dL (0.15-1.2) 04/19/22 12:35 AST 19 U/L (0-32) 04/19/22 12:35 ALT 11 U/L (0-33) 04/19/22 12:35 Alkaline Phosphatase 87 U/L (35-105) 04/19/22 12:35 Troponin T Baseline 67 ng/L (0-10) H 04/19/22 12:35 Troponin T 120 Minute 265.8 ng/L (0-10) H 04/19/22 14:31 Delta Troponin T 198.8 ABS# (0-10) H* 04/19/22 14:31 Troponin T Hi Sens 6Hr 854.3 ng/L (0-10) H 04/19/22 18:36 Troponin T Hi Sens 6Hr Delta 787.3 ng/L (0-12) H* 04/19/22 18:36 NT-Pro-B Natriuret Pep 192 pg/mL (0-125) H 04/19/22 12:35 Total Protein 6.3 g/dL (6.6-8.7) L 04/19/22 12:35 Albumin 3.7 g/dL (3.5-5.2) 04/19/22 12:35 Globulin 2.6 g/dL (1.3-4.6) 04/19/22 12:35 Triglycerides 104 mg/dL (0-150) 04/20/22 03:45 Cholesterol 184 mg/dL (0-200) 04/20/22 03:45 LDL Cholesterol, Calc 108 mg/dL (50-129) 04/20/22 03:45 HDL Cholesterol 55 mg/dL (60-100) L 04/20/22 03:45 LDL/HDL Ratio 1.96 RATIO (0.00-3.22) 04/20/22 03:45 Cholesterol/HDL Ratio 3.35 mg/dL (0.0-4.40) 04/20/22 03:45 Urine Color Yellow (Yellow) 04/19/22 15:08 Urine Appearance Hazy (CLEAR) A 04/19/22 15:08 Urine pH 8 (5-7) H 04/19/22 15:08 Ur Specific [place] 1.010 (1.005-1.030) 04/19/22 15:08 Urine Protein Neg (Negative) 04/19/22 15:08 Urine Glucose (UA) Norm (Normal) 04/19/22 15:08 Urine Ketones 1+ (Negative) H 04/19/22 15:08 Urine Blood Neg (Negative) 04/19/22 15:08 Urine Nitrate Negative (Negative) 04/19/22 15:08 Urine Bilirubin Neg (Negative) 04/19/22 15:08 Prot Sulfosalicylic Acd Negative (Negative) 04/19/22 15:08 Urine Urobilinogen Norm mg/dL (Negative) 04/19/22 15:08 Ur Leukocyte Esterase Negative (Negative) 04/19/22 15:08 Urine RBC None /hpf (0-2) 04/19/22 15:08 Urine WBC Rare /hpf (0-5) 04/19/22 15:08 Ur Squamous Epith Cells Rare /hpf (0-5) 04/19/22 15:08 Amorphous Sediment 2+ /hpf 04/19/22 15:08 Urine Bacteria Trace /hpf (NONE) 04/19/22 15:08 Vitals Last Vital Signs Temp 98 F 04/20/22 20:00 Pulse 77 04/21/22 05:20 Resp 20 H 04/21/22 04:00 BP 126/74 04/21/22 04:00 Pulse Ox 96 04/21/22 04:00 O2 Del Method 04/21/22 04:00 Discharge Plan Discharge Patient Disposition: Home Condition: Stable Prescriptions: New atorvastatin 40 mg Tablet 80 mg PO BEDTIME Qty: 60 0RF aspirin 81 mg Tablet,Delayed Release (Dr/Ec) 81 mg PO DAILY Qty: 30 0RF Brilinta 90 mg Tablet 90 mg PO BID Qty: 60 11RF Discontinued aspirin 325 mg Tablet 325 mg PO DAILY PRN (Reason: Pain) acetaminophen [Tylenol Extra Strength] 500 mg Tablet 1,000 mg PO BEDTIME PRN (Reason: Pain) Excedrin Extra Strength 250-250-65 mg Tablet 2 tab PO BID Discharge Orders: Discharge Order (Routine); Ordered 04/21/22 Ordered By: Christiano Carvajal Referrals: MATIAS Waters FNP [Primary Care Provider] - 4-7 days (Discussion of pulm chest x-ray, potential for nonemergent CT chest) Christine Rivera MD [Physician] - 4-7 days (Follow-up with cardiology clinic nurse practitioner initially, then Dr. Rivera after per protocol after angiogram and stent) Discharge Diet: Cardiac Discharge Activity: Increase activity as tolerated Patient Instructions: Coronary Angioplasty (DC), Opioid Safety Activity Restrictions/Additional Instructions: Stop smoking. Take all medicine as prescribed Follow-up with primary care provider 3 to 5 days, nurse practitioner in cardiology clinic in 1 week, cardiology in 2 weeks Hold discharge until approved by cardiology Discharge Attestations Time Spent in Discharge Care*: greater than 30 min Quality Metrics Clinical Quality Measures [ No reported AMI, CVA or VTE this stay] Coding Level of Care Code Acute Chg FW DC note Diagnoses Acute non-ST elevation myocardial infarction (NSTEMI) I21.4 Smoking addiction F17.200 Pulmonary nodule R91.1 Pulmonary hyperinflation R09.89
[2022-04-21] MEDS: lidocaine 5% Patch 1 PATCH TOPICAL (08:33)
[2022-04-21] MEDS: aspirin 81 mg EC Tablet PO (08:33)
[2022-04-21] MEDS: ticagrelor 90 mg Tablet PO (08:33)
[2022-04-21] MEDS: HYDROcodone-acetaminophen 5-325 mg Tablet 1 TAB PO (08:33)
[2022-04-21] MEDS: nicotine 21 mg Patch 1 PATCH TRANSDERMA (08:39)
--- NOTE | 2022-04-21 09:43 | P.PN_ITS ---
Subjective Subjective: No CP, feels well Medications: Reviewed: Yes Vitals/I&O/Wt Last Vital Signs Temp 98 F 04/20/22 20:00 Pulse 65 04/21/22 08:00 Resp 23 H 04/21/22 08:00 BP 123/69 04/21/22 07:33 Pulse Ox 98 04/21/22 08:00 O2 Del Method 04/21/22 08:00 04/20/22 04/21/22 04/21/22 22:59 06:59 14:59 Intake Total 720 / 540.343 2836 / 1240 Output Total 200 / 400 Balance 520 / 385.713 5796 / 1240 Weight last 48 hrs Weight 104 lb 1.6 oz Weight 95 lb 3.835 oz Weight 105 lb Physical Exam Narrative: GENERAL: Frail lady laying in bed in no acute distress HEENT: Extraocular movement intact. No pallor or icterus. NECK: central trachea, No JVD, No carotid bruit. CARDIOVASCULAR SYSTEM: S1-S2 regular. No murmur rubs or gallops. RESPIRATORY SYSTEM: Chest clear to auscultation, prolonged expiration. No wheezes rhonchi or rubs heard. No use of accessory muscles. ABDOMEN: Soft, nontender and nondistended. Normal bowel sounds present. No hepatosplenomegaly appreciated. EXTREMITIES: No cyanosis or edema]. No signs of chronic venous insufficiency. Right wrist with moderate sized hematoma extending to mid forearm and bruising CASTING INSPECTOR: Patient is alert oriented ?3. No focal neurological deficits. Cranial nerves intact. SKIN: Normal turgor and temperature. No breakdown, rash or nail changes noted. PSYCH: Normal insight and judgment. Data : 04/21/22 03:30 04/21/22 03:30 A&P Assessment and plan (1) Acute non-ST elevation myocardial infarction (NSTEMI): Echo showed mild hypokinesis in lateral chavez. LVEF 55% -s/p EVER to mid LCx, ostial 50-60% RCA lesion in some views; will consider stress test as an outpatient. -continue aspirin and Brilinta. - Continue statins and hold beta-ventura d/t bradycardia with heart rate is in 50s. -Follow up with Lily in 1 week and with me in 2 months -Cardiac rehab discussed with her Status: Acute (2) Hyperlipidemia: LDL goal<70 Status: Acute (3) Smoker: Advised on smoking cessation Status: Acute Plan Chronic back pain knees Osteoarthritis Attestations Medical Necessity Statement*: stable to be discharged home Coding Level of Care Code Acute Consumer Electronic Retail Specialist for g Fwd Diagnoses Acute non-ST elevation myocardial infarction (NSTEMI) I21.4 Hyperlipidemia E78.5 Smoker F17.200
--- NOTE | 2022-04-21 11:24 | PC.NURSE ---
Discharge instructions given to patient and son, IV removed. Patient disappointed about not continuing Excedrin, but will talk to her PCP and Dr. Rivera about options. Dr. Carvajal already made aware of patient requesting to continue her Excedrin or a different pain medication for her back. No further questions.
--- NOTE | 2022-04-21 11:30 | PC.NURSE ---
Patient and belongings wheeled to private vehicle by this nurse, accompanied by son.
--- NOTE | 2022-04-21 14:05 | PC.NURSE ---
Brilinta Family called stating they can not afford the Brilinta and their pharmacy doesn't carry it and will have to order it. Attempted to call Dr. Rivera, left. Dr. Alejandro called and notified, ordered 600 mg plavix PO once tonight at 1800 and then plavix 75 mg PO daily there after. Prescription called to patient's pharmacy. Patient and patient's son Marek called and notified of change.
== END 2022-04-21 11:20 | disposition home or self-care (01) | DRG 247 ==
LOC: ER 15:16 → ICU 15:51
PROVIDERS: Internal Medicine; Internal Medicine Cardiovascular Disease; Registered Nurse; Admitting Provider Internal Medicine; Emergency Provider Emergency Medicine; PCP Nurse Practitioner Family; Visit Provider Internal Medicine
PROC: 027034Z Dilation of Coronary Artery, One Artery with Drug-eluting Intraluminal Device, Percutaneous Approach (ICD-10-PCS; principal; 2022-04-20 11:45)
DX: I21.4 Non-ST elevation (NSTEMI) myocardial infarction (principal); I25.10 Atherosclerotic heart disease of native coronary artery without angina pectoris; F17.210 Nicotine dependence, cigarettes, uncomplicated; G89.29 Other chronic pain; R09.89 Other specified symptoms and signs involving the circulatory and respiratory systems; I51.7 Cardiomegaly; R91.1 Solitary pulmonary nodule; E78.5 Hyperlipidemia, unspecified; M47.9 Spondylosis, unspecified; M17.0 Bilateral primary osteoarthritis of knee
CPT/HCPCS: 36415; 71045; 80048; 80053; 80061; 81001; 83036; 83880; 84484; 85025; 85347; 85730; 93005; 93306; 93458; 94760; 96360; 96361; 96374; 99152; 99153; 99285; C1725; C1769; C1874; C1887; C1894; C9600; J0461; J1644; J2250; J2270; J2405; J3010; J3490; J7030; Q0163; Q9967

== ENCOUNTER → 2022-04-27 09:25 | Outpatient (BNVA) | payer MEDICARE, SELFPAY | PROVIDERS: PCP Nurse Practitioner Family; Visit Provider Nurse Practitioner Family | DX: I25.10 Atherosclerotic heart disease of native coronary artery without angina pectoris (principal); F17.210 Nicotine dependence, cigarettes, uncomplicated; I25.2 Old myocardial infarction | CPT/HCPCS: 36415; 80048; 99213; 99214 ==

== ENCOUNTER 2022-05-25 13:03 | Emergency (ER) | payer MEDICARE, SELFPAY ==
[2022-05-25] VITALS (9 sets, daily range): BP systolic 105–137; BP diastolic 56–85; PULSE 54–74; RESP 18; O2SAT 95–100; BMI 17.6
--- NOTE | 2022-05-25 14:12 | XRR_ITS ---
PROCEDURE INFORMATION: Exam: XR Chest Exam date and time: 05/25/2022 2:26 PM Age: 72 years old Clinical indication: Cough and dyspnea; Additional info: Dyspnea/cough TECHNIQUE: Imaging protocol: Radiologic exam of the chest. Views: 1 view. COMPARISON: CR (CHEST, ) 04/19/2022 11:53 AM FINDINGS: Lungs: There is hyperexpansion of the lungs consistent with COPD. The examination is otherwise unremarkable. Comparison to prior examination similar findings seen. Pleural spaces: Unremarkable. No pleural effusion. No pneumothorax. Heart/Mediastinum: Unremarkable. No cardiomegaly. Bones/joints: Unremarkable. XR/XR chest 1V portable [id number] IMPRESSION: No acute findings.
--- NOTE | 2022-05-25 14:23 | CT_ITS ---
WS: [id number] CT HEAD NONCONTRAST HISTORY: syncope w loss of vision TECHNIQUE: Contiguous axial imaging performed through the brain in 2.5 mm imaging. Bone and soft tiss ue windows. Sagittal and coronal reformats reviewed. All CT scans at [facility] use at least one of these dose optimization techniques: automated exposure control; mA and/or kV adjustment per pa tient size (includes targeted exams where dose is matched to clinical indication); or iterative recon struction. DLP: 936.98 mGy.cm COMPARISON: None available. No acute intracranial hemorrhage, midline shift or mass effect. Mild atrophy and mild small vessel ischemic disease. No acute area of sulcal effacement. Ventricles: Normal size with no hydrocephalus. No inferior displacement of the cerebellar tonsils. Paranasal sinuses: As visualized are clear. Mastoid air cells: Well pneumatized. Calvarium and scalp: Skull is intact with no soft tissue edema or swelling. CT/CT head wo con* [id number] IMPRESSION: 1. No acute intracranial hemorrhage or edema. 2. Mild atrophy and mild small vessel ischemic disease.
--- NOTE | 2022-05-25 14:24 | ECG_ITS ---
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 Measurements Intervals [place] Rate: 48 P: 73 AR: 205 QRS: 37 QRSD: 101 T: 62 QT: 472 QTc: 425 Interpretive Statements SINUS BRADYCARDIA POSSIBLE LEFT ATRIAL ENLARGEMENT [-0.1mV P-WAVE IN V1/V2] POSSIBLE RIGHT VENTRICULAR CONDUCTION DELAY [RSR (QR) IN V1/V2] INFERIOR MYOCARDIAL INFARCTION , OF INDETERMINATE AGE [40+ ms Q WAVE AND/OR ST/T ABNORMALITY IN II/aVF] ANTEROLATERAL MYOCARDIAL INFARCTION , OF INDETERMINATE AGE [40+ ms Q WAVE IN I/aVL/V3-V6] Compared to ECG 04/19/2022 16:56:02 Myocardial infarct finding now present Electronically Signed On 05-25-2022 21:24:34 CDT by Darlyn Callaway M.D. [id number]
--- NOTE | 2022-05-25 14:32 | W.ED.SYNCOPE ---
HPI - Syncope General: Chief Complaint: Syncope Stated Complaint: stomach pain and blurred vision Time Seen by Provider: 05/25/22 14:11 Source: patient Mode of arrival: ambulatory History of Present Illness: 72-year-old female presents to the emergency room with complaints of a syncopal episode. She was sitting in the car had Nausea, lightheaded and dizzy felt like she lost consciousness get blurry vision for several minutes and resolved states she had another episode after she arrived here. She has not had any further episodes since. She does have a history of coronary artery disease states she had a stent placed within the last month she continues to smoke she has continued to take Plavix. No vomiting no diarrhea no hematochezia melena hematemesis or coffee-ground emesis. She had no chest pain with these episodes either she was not exerting herself at the time this occurred. MD complaint: loss of consciousness Onset (ago): minute(s) Prodromal symptoms: lightheaded Witnessed: Yes - by Bystander Context: at rest Injuries sustained associated with event: none Associated symptoms: Reports nausea and weakness; Deny abdominal pain, chest pain, fever(s), headache(s), lightheadedness, short of breath or vertigo Review of Systems Const: Denies: fever(s), chills, fatigue or malaise ENMT: Denies: throat pain, ear or mastoid pain, nasal discharge or nasal congestion Card: Denies: chest pain, palpitations, irregular heart rhythm, edema or lightheadedness Resp: Denies: dyspnea, productive cough or non-productive cough GI: Reports: nausea; Denies: abdominal pain or vomiting : Denies: flank pain, difficulty voiding, dysuria, urinary frequency or urinary urgency Skin/Breast: Denies: rash or pruritus Neuro: Denies: headache(s) or vertigo PFSH ED PFSH: Medical History Acute non-ST elevation myocardial infarction (NSTEMI) Atherosclerosis of coronary artery CAD (coronary artery disease) Chronic back pain Close exposure to COVID-19 virus Lower respiratory infection Osteoarthritis Smoking addiction Surgical History History of coronary artery stent placement 04/18/11 Family History Other CAD (coronary artery disease) Diabetes Hypertension Social History Smoking and tobacco status: current every day smoker cigarettes Packs smoked per day: 1 Years cigarettes smoked: 50 Alcohol intake: current Alcohol intake frequency: holidays/special occasions only Lives independently: Yes Household members: none Marital status: / Physical Exam Const: GENERAL APPEARANCE: cooperative and comfortable ORIENTATION/CONSCIOUSNESS: Yes awake, Yes oriented to person, Yes oriented to place and Yes oriented to time HENMT: COMMON NORMALS: normocephalic, atraumatic, hearing grossly normal bilaterally, external ears normal, EAC's normal, TM's normal bilaterally, Normal nasal mucous membranes and turbinates present, moist oral mucous membranes and oropharynx normal HEAD & SCALP: normocephalic and atraumatic NOSE: Normal nasal mucous membranes and turbinates present EXTERNAL EAR: Yes external ears normal EXTERNAL AUDITORY CANAL: EAC's normal TYMPANIC MEMBRANE: TM's normal bilaterally Eye: COMMON NORMALS: Equal, round and reactive pupils present, EOMs intact bilaterally, conjunctivae normal and no scleral icterus CONJUNCTIVA: Yes conjunctivae normal PUPIL: Yes Equal, round and reactive pupils present Neck/C-Spine: COMMON NORMALS: full ROM, no lymphadenopathy, supple and no JVD Lymph: LYMPHATIC: no lymphadenopathy noted and no lymphedema noted Resp: COMMON NORMALS: normal respiratory effort, No retractions, No use of accessory muscles and clear to auscultation bilaterally AUSCULTATION: clear to auscultation bilaterally Cardio: COMMON NORMALS: no JVD, regular rate, regular rhythm and No murmurs present (Cardio) RATE: regular rate RHYTHM: regular rhythm GI: COMMON NORMALS: Soft to palpation and No hepatosplenomegaly present AUSCULTATION: Yes normoactive bowel sounds PALPATION: Yes Soft to palpation, No Tenderness to palpation present (GI), No Guarding due to palpation present (GI) and Yes No hepatosplenomegaly present Extremity: COMMON NORMALS: normal to inspection, capillary refill normal, no clubbing, cyanosis or edema, no calf tenderness and no pedal edema Neuro: SENSORIUM/ORIENTATION: Yes oriented to person, Yes oriented to place and Yes oriented to time Skin: COMMON NORMALS: no rashes or lesions noted GENERAL SKIN EXAM: no rashes or lesions noted Course Vital Signs: Vital signs: Vital Signs Pulse Rate 69 10/10/22 17:30 Respiratory Rate 18 05/25/22 14:09 Blood Pressure 127/73 05/25/22 17:30 Pulse Oximetry 99 05/25/22 17:00 Oxygen Delivery Me thod 05/25/22 13:57 MDM - Syncope Medical Decision Making Patient bradycardic on arrival here was with her and reports to syncopal episodes 1 prior to coming here which brought it septated the visit and then another after arriving while in the waiting room the second was not nearly as long. Patient was noted to be bradycardic at the time of her NSTEMI so she was not started on a beta-ventura. Concerned she may be developing symptomatic bradycardia recommend that she remain in the hospital for observation of her rhythm and rate may need further cardiology evaluation. Patient refuses and opts to leave AMA I was unable to persuade her otherwise recommend follow-up with cardiology since she is declining to Medical Records I reviewed the patient's medical records. Lab Data I reviewed the patient's lab results. : 05/25/22 14:55 05/25/22 14:55 Radiology Impressions Chest X-Ray 05/25/22 14:12 IMPRESSION: No acute findings. Head CT 05/25/22 14:23 IMPRESSION: 1. No acute intracranial hemorrhage or edema. 2. Mild atrophy and mild small vessel ischemic disease. Laboratory Results WBC 10.2 10^3/uL (4.0-10.0) H 05/25/22 14:55 RBC 4.04 10^6/uL (4.1-5.3) L 05/25/22 14:55 Hgb 12.8 g/dL (11.5-15.3) 05/25/22 14:55 Hct 40.5 % (37.0-47.0) 05/25/22 14:55 MCV 100.2 fl (81-99) H 05/25/22 14:55 MCH 31.7 pg (28.0-34.0) 05/25/22 14:55 MCHC 31.6 g/dL (30.0-36.0) 05/25/22 14:55 RDW 13.5 % (12.1-15.1) 05/25/22 14:55 Plt Count 266 10^3/cmm (130-400) 05/25/22 14:55 MPV 9.4 fL (7.4-10.4) 05/25/22 14:55 Neut % (Auto) 80.5 % 05/25/22 14:55 Lymph % (Auto) 13.3 % 05/25/22 14:55 [place] % (Auto) 5.2 % 05/25/22 14:55 Eos % (Auto) 0.1 % 05/25/22 14:55 Baso % (Auto) 0.5 % 05/25/22 14:55 Neut # (Auto) 8.23 10^3/uL (1.8-7.7) H 05/25/22 14:55 Lymph # (Auto) 1.4 10^3/uL (0.8-4.8) 05/25/22 14:55 [place] # (Auto) 0.5 10^3/uL (0.2-0.9) 05/25/22 14:55 Eos # (Auto) 0.0 10^3/uL (0.0-0.8) 05/25/22 14:55 Baso # (Auto) 0.1 10^3/uL (0.0-0.1) 05/25/22 14:55 Nucleated RBC % (auto) 0 % 05/25/22 14:55 Nucleated RBCs # 0.0 /100WBC 05/25/22 14:55 Sodium 133 mmol/L (136-145) L 05/25/22 14:55 Potassium 4.0 mmol/L (3.5-5.1) 05/25/22 14:55 Chloride 98 mmol/L (98-107) 05/25/22 14:55 Carbon Dioxide 23 mmol/L (22-29) 05/25/22 14:55 Anion Gap 16.0 (5-19) 05/25/22 14:55 BUN 17 mg/dL (8-23) 05/25/22 14:55 Creatinine 0.7 mg/dL (0.5-0.9) 05/25/22 14:55 GFR Calculation Not Reportable 05/25/22 14:55 Glucose 122 mg/dL (65-115) H 05/25/22 14:55 POC Glucose 101 mg/dL (70-110) 05/25/22 14:43 Calculated Osmolality 279 mOsm/kg (285-295) L 05/25/22 14:55 Lactic Acid 1.7 mmol/L (0.5-2.2) 05/25/22 14:55 Calcium 10.3 mg/dL (8.5-10.5) 05/25/22 14:55 Total Bilirubin 0.2 mg/dL (0.15-1.2) 05/25/22 14:55 AST 15 U/L (0-32) 05/25/22 14:55 ALT 12 U/L (0-33) 05/25/22 14:55 Alkaline Phosphatase 93 U/L (35-105) 05/25/22 14:55 Troponin T Baseline 16 ng/L (0-10) H 05/25/22 14:55 Troponin T 120 Minute 19.95 ng/L (0-10) H 05/25/22 16:46 Delta Troponin T 3.95 ABS# (0-10) 05/25/22 16:46 Total Protein 6.9 g/dL (6.6-8.7) 05/25/22 14:55 Albumin 4.1 g/dL (3.5-5.2) 05/25/22 14:55 Globulin 2.8 g/dL (1.3-4.6) 05/25/22 14:55 Discharge Plan Discharge Patient Disposition: Left Against Medical Advice Clinical Impression: Syncope, HTN (hypertension), Hyperlipidemia, Smoker, Bradycardia, Coronary artery disease Condition: Stable Prescriptions: No Action clopidogrel [Plavix] 75 mg tablet 75 mg PO DAILY Qty: 90 3RF Excedrin Extra Strength 250-250-65 mg Tablet 2 tab PO TID Referrals: MATIAS Waters, PABLO [Primary Care Provider] - Coding Level of Care Code ED Safety And Occupational Health Manager for Chg Fwd Exam Comprehensive
[2022-05-25 14:47] LABS: Glucose Point of Care 101 mg/dL (70-110)
[2022-05-25 15:03] LABS: Basophils # 0.1 10^3/uL (0.0-0.1); Basophils % 0.5 %; Eosinophils % 0.1 %; Hematocrit 40.5 % (37.0-47.0); Hemoglobin 12.8 g/dL (11.5-15.3); Lymphocytes # 1.4 10^3/uL (0.8-4.8); Lymphocytes % 13.3 %; Mean Corpuscular HGB Conc 31.6 g/dL (30.0-36.0); Mean Corpuscular Hemoglobin 31.7 pg (28.0-34.0); Mean Corpuscular Volume 100.2 fl (81-99); Mean Platelet Volume 9.4 fL (7.4-10.4); Monocytes # 0.5 10^3/uL (0.2-0.9); Monocytes % 5.2 %; Neutrophils # 8.23 10^3/uL (1.8-7.7); Neutrophils % 80.5 %; Nucleated Red Blood Cells % 0 %; Platelet Count 266 10^3/cmm (130-400); Red Blood Count 4.04 10^6/uL (4.1-5.3); Red Cell Distribution Width 13.5 % (12.1-15.1); White Blood Count 10.2 10^3/uL (4.0-10.0)
[2022-05-25 15:21] LABS: Alanine Aminotransferase 12 U/L (0-33); Albumin Level 4.1 g/dL (3.5-5.2); Alkaline Phosphatase 93 U/L (35-105); Aspartate Amino Transferase 15 U/L (0-32); Blood Urea Nitrogen 17 mg/dL (8-23); Calcium 10.3 mg/dL (8.5-10.5); Carbon Dioxide 23 mmol/L (22-29); Chloride 98 mmol/L (98-107); Globulin 2.8 g/dL (1.3-4.6); Glucose 122 mg/dL (65-115); Osmolality Calculated 279 mOsm/kg (285-295); Sodium 133 mmol/L (136-145); Total Bilirubin 0.2 mg/dL (0.15-1.2); Total Protein 6.9 g/dL (6.6-8.7)
[2022-05-25 15:23] LABS: Troponin(5th) Baseline 16 ng/L (0-10)
[2022-05-25 15:24] LABS: Lactic Sepsis W/Reflex 1.7 mmol/L (0.5-2.2)
--- NOTE | 2022-05-25 16:13 | ECG_ITS ---
[facility] Test Date: 2022-05-25 Pat Name: Yoselyn Lund Department: Room: Gender: Female Apartment Maintenance: : 1950 Requested By: Prince Lawrence Order Number: [id number] Sony MD: Darlyn Callaway M.D. Measurements Intervals [place] Rate: 62 P: 77 [place]: 193 QRS: 24 QRSD: 98 T: 58 QT: 437 QTc: 445 Interpretive Statements SINUS RHYTHM POSSIBLE LEFT ATRIAL ENLARGEMENT [-0.1mV P-WAVE IN V1/V2] LOW QRS VOLTAGE IN EXTREMITY LEADS [QRS DEFLECTION < 0.5 mV IN LIMB LEADS] POSSIBLE RIGHT VENTRICULAR CONDUCTION DELAY [RSR (QR) IN V1/V2] POSSIBLE ANTEROLATERAL MYOCARDIAL INFARCTION , OF INDETERMINATE AGE [30 ms Q WAVE IN I/aVL/V3-V6] Compared to ECG 05/25/2022 14:24:44 Low QRS voltage now present Sinus bradycardia no longer present Myocardial infarct finding still present Electronically Signed On 05-25-2022 21:34:47 CDT by Darlyn Callaway M.D. [id number]
[2022-05-25 17:29] LABS: Troponin 5 2HR 19.95 ng/L (0-10)
[2022-05-25 17:30] LABS: Troponin 5 2HR Delta 3.95 ABS# (0-10)
--- NOTE | 2022-05-26 11:57 | DCPLANNER ---
Addendum entered by Sarah Villatoro 08/05/22 11:23: Patient had a follow up appointment with heart care - patient did attend appointment Addendum entered by Sarah Villatoro 05/28/22 15:28: Patient has a follow up appointment scheduled for Wednesday, June 03, 2022 at 3:[address] Rivera at [facility]. Clinic will call patient with appointment information. Original Note: manager provider relations had message to schedule a follow up appointment for patient with cardiology. manager provider relations sent patients information to the front office staff at [facility]. Patients information will be printed and reviewed. Clinic will call patient with appointment information.
== END 2022-05-25 18:17 | disposition left against medical advice (07) ==
PROVIDERS: Emergency Provider Family Medicine; PCP Nurse Practitioner Family
DX: R55 Syncope and collapse (principal); I10 Essential (primary) hypertension; E78.5 Hyperlipidemia, unspecified; I25.10 Atherosclerotic heart disease of native coronary artery without angina pectoris; R00.1 Bradycardia, unspecified; F17.210 Nicotine dependence, cigarettes, uncomplicated; I25.2 Old myocardial infarction
CPT/HCPCS: 36415; 36416; 70450; 71045; 80053; 82962; 83605; 84484; 85025; 93005; 99285

== ENCOUNTER → 2022-06-03 14:46 | Outpatient (BNVA) | payer MEDICARE, SELFPAY | PROVIDERS: PCP Nurse Practitioner Family; Visit Provider Internal Medicine Cardiovascular Disease | DX: I25.10 Atherosclerotic heart disease of native coronary artery without angina pectoris (principal); I10 Essential (primary) hypertension; Z95.5 Presence of coronary angioplasty implant and graft; F17.210 Nicotine dependence, cigarettes, uncomplicated; E78.5 Hyperlipidemia, unspecified; I25.2 Old myocardial infarction | CPT/HCPCS: 99214 ==

== ENCOUNTER → 2022-11-30 10:40 | Outpatient (BNVA) | payer MEDICARE, SELFPAY | PROVIDERS: Visit Provider Family Medicine | DX: E78.5 Hyperlipidemia, unspecified (principal); I25.10 Atherosclerotic heart disease of native coronary artery without angina pectoris | CPT/HCPCS: 80061 ==

== ENCOUNTER 2023-01-14 14:01 | Emergency (ER) | payer MEDICARE, SELFPAY ==
[2023-01-14] VITALS (7 sets, daily range): BP systolic 119–148; BP diastolic 77–91; PULSE 62–82; RESP 16–20; TEMP 36.8; O2SAT 94–99; BMI 17.2
--- NOTE | 2023-01-14 14:20 | XR_ITS ---
WS: [id number] Exam: XR chest 1V portable [id number] Date/Time of Exam: 01/14/2023 2:23 PM Reason For Exam: cp Comparison 05/25/2022. The lungs are hyperinflated and clear. Cardiomediastinal silhouette is unremarkable for technique. Si gns of coronary artery stenting. No pleural effusions. Bony structures are intact. XR/XR chest 1V portable [id number] IMPRESSION: 1. Pulmonary hyperinflation which may indicate COPD. No acute process noted.
--- NOTE | 2023-01-14 14:20 | ECG_ITS ---
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 Measurements Intervals Reform Rate: 67 P: 77 MO: 175 QRS: 63 QRSD: 93 T: 71 QT: 411 QTc: 436 Interpretive Statements SINUS RHYTHM LEFT ATRIAL ENLARGEMENT [-0.15mV P-WAVE IN V1/V2] POSSIBLE RIGHT VENTRICULAR CONDUCTION DELAY [RSR (QR) IN V1/V2] POSSIBLE LATERAL MYOCARDIAL INFARCTION , OF INDETERMINATE AGE [30 ms Q WAVE IN I/aVL/V5/V6] POSSIBLE INFERIOR MYOCARDIAL INFARCTION , OF INDETERMINATE AGE [30 ms Q WAVE IN II/aVF] Compared to ECG 05/25/2022 16:38:04 No significant changes Electronically Signed On 01-14-2023 17:36:25 CDT by Jero Alejandro M.D. [id number]
--- NOTE | 2023-01-14 14:21 | ED_ITS ---
HPI - Chest Pain General: Chief Complaint: Chest Pain Stated Complaint: Chest Pain Time Seen by Provider: 01/14/23 14:03 Source: patient Mode of arrival: EMS Limitations: no limitations History of Present Illness: This patient presents via EMS to the emergency department. She has a known history of coronary disease and has had 2 prior MIs with stents placed at each time. The most recent of those has been last fall. She states she has been a bit fatigued over the past several days but awoke again feeling fatigued but otherwise without symptoms. She states that she was fixing breakfast and noted that she had pounding in her chest with some intermittent radiation of symptoms to her left jaw. She states she was a little nauseated. She immediately chewed up of 325 mg of aspirin and then took 3 separate nitroglycerin and relaxed. She states that her symptoms seem to improve for period of time and then returned at that time she notified EMS and subsequently took 3 additional nitroglycerin but time EMS arrived 45 minutes later her symptoms had improved. Since that time approximately 1 hour prior to arrival she has been relatively symptom-free. She denies any recent fevers chills cough or other constitutional complaints. She states that she is faithful to all her usual medications. MD complaint: chest pain and chest heaviness Pertinent past history: coronary artery disease Onset: during rest Pain radiation: jaw/teeth Relieving factors: nitroglycerin Associated symptoms: Reports nausea and palpitations; Deny abdominal pain, dyspnea, fever(s), syncope or vomiting Treatment prior to arrival: aspirin and nitroglycerin Risk Factors: Coronary artery disease risk factors: smoking history (She still smokes approximately 5 cigarettes daily) Review of Systems Const: Reports: fatigue; Denies: fever(s) or chills Eyes: Denies: change in vision ENMT: Denies: throat pain, odynophagia, nasal discharge or nasal congestion Card: Reports: palpitations; Denies: syncope, pre-syncope or dyspnea on exertion Resp: Denies: dyspnea, productive cough or non-productive cough GI: Reports: nausea; Denies: abdominal pain, vomiting, hematemesis, hematochezia or melena : Denies: flank pain, difficulty voiding, dysuria or urinary frequency Musc: Denies: neck pain, back pain, extremity pain or extremity swelling Skin/Breast: Denies: rash Neuro: Denies: headache(s), numbness in extremities or weakness in extremities Felipe/Lymph: Reports: easy bruising PFSH ED PFSH: Medical History Acute non-ST elevation myocardial infarction (NSTEMI) Atherosclerosis of coronary artery CAD (coronary artery disease) Chronic back pain Close exposure to COVID-19 virus Lower respiratory infection Osteoarthritis Smoking addiction Surgical History History of coronary artery stent placement 04/18/11 Family History Other CAD (coronary artery disease) Diabetes Hypertension Social History Smoking and tobacco status: current every day smoker cigarettes Packs smoked per day: 1 Years cigarettes smoked: 50 Alcohol intake: current Alcohol intake frequency: holidays/special occasions only Substance/Drug Use: never Lives independently: Yes Household members: none Marital status: / Physical Exam Narrative: EXAM NARRATIVE: Appears comfortable and interactive at the time of intake exam Const: COMMON NORMALS: no acute distress, average body habitus, patient oriented x3 and alert GENERAL APPEARANCE: cooperative and comfortable ORIENTATION/CONSCIOUSNESS: Yes awake HENMT: COMMON NORMALS: normocephalic, Normal nasal mucous membranes and turbinates present, moist oral mucous membranes and oropharynx normal HEAD & SCALP: normocephalic NOSE: Normal nasal mucous membranes and turbinates present Eye: COMMON NORMALS: Equal, round and reactive pupils present, EOMs intact bilaterally and no scleral icterus PUPIL: Yes Equal, round and reactive pupils present Neck/C-Spine: COMMON NORMALS: full ROM, supple, no JVD and No carotid bruits Chest: COMMONS NORMALS: normal inspection of the chest and normal palpation of entire chest wall Resp: COMMON NORMALS: normal respiratory effort, No use of accessory muscles and clear to auscultation bilaterally EFFORT & INSPECTION: Yes able to speak in complete sentences AUSCULTATION: clear to auscultation bilaterally Cardio: COMMON NORMALS: no JVD, regular rate, regular rhythm, No murmurs present (Cardio) and Peripheral pulses 2+ throughout RATE: regular rate RHYTHM: regular rhythm PERIPHERAL PULSES: Peripheral pulses 2+ throughout GI: COMMON NORMALS: Normal to inspection, nondistended, normoactive bowel sounds present, Soft to palpation and non-tender PALPATION: Yes Soft to palpation : COMMON NORMALS: Yes no CVA tenderness BLADDER/KIDNEY EXAM: Yes no CVA tenderness Back/Pelvis: COMMON NORMALS: no CVA tenderness, thoracic and lumbar spine normal to inspection, no thoracic nor lumbar tenderness and thoraco-lumbar ROM normal Extremity: COMMON NORMALS: normal to inspection, full ROM, no joint enlargement, no clubbing, cyanosis or edema and no calf tenderness Neuro: COMMON NORMALS: patient oriented x3, moves all extremities, no focal motor deficits and no sensory deficits noted SENSORIUM/ORIENTATION: Yes alert CRANIAL NERVES: Yes CN normal except as noted Skin: COMMON NORMALS: no rashes or lesions noted, no wounds and turgor normal GENERAL SKIN EXAM: no rashes or lesions noted and turgor normal Course Reevaluation(s): Reevaluation #1: Patient is remained stable and chest pain-free since arrival. She has not displayed any arrhythmias or other perturbations in her vital signs while here. Her clinical exam is unchanged and unremarkable. I discussed current findings including her troponin levels being slightly elevated but not trending upward, normal chest x-ray, normal electrocardiogram and no other findings. We discussed options to include continued observation for recurrence of symptoms or new findings versus discharge. She voiced understanding of the risks and benefits of either approach and was strongly in favor of being discharged to home. She acknowledges the implications and limitations of her current evaluation. Family members were also present who were supportive of what ever the decision she made. She had intact decision- making capacity and could acknowledge the risk. Time: 16:48 Vital Signs: Vital signs: Vital Signs Temperature 98.3 F 01/14/23 14:03 Pulse Rate 62 01/14/23 16:30 Respiratory Rate 19 H 01/14/23 16:30 Blood Pressure 124/80 01/14/23 16:30 Pulse Oximetry 96 01/14/23 16:30 Oxygen Delivery Me thod Room Air 01/14/23 14:03 MDM - Chest Pain Medical Decision Making Patient with a known history of prior [place] and coronary disease had episodes of chest pain this morning that were initially relieved by nitroglycerin and then returned and requiring second round of nitroglycerin. She it was described as a pounding sensation with some discomfort in her left jaw. Concern was regarding ACS and other potential coronary artery etiologies to her symptoms. Her clinical examination was reassuring without any focal findings. Electrocardiograms were obtained which were unchanged from prior electrocardiograms. Initial troponin was slightly over the URL for for sex and a subsequent troponin was obtained which was essentially unchanged. Chest x-ray was reassuring other than chronic obstructive pulmonary disease changes. Certainly no evidence of ACS, pneumonia, pneumothorax, other worrisome etiology of chest pain at this time to include no demonstrable arrhythmias while in the emergency department. We discussed continued observation she felt very com fortable with continuing her observation in her own home. She did acknowledge that there is risk of return of her symptoms also acknowledged that she would follow you to put her usual protocol with nitroglycerin if it did not improve she would return to the emergency department. He also discussed a cardiology follow-up and perhaps wearing of a ambulatory monitor to determine if she is suffering episodes of arrhythmia during her subjective symptoms. She voiced understanding and was desires to be discharged from the emergency department home. Medical Records I reviewed the patient's medical records. Lab Data I reviewed the patient's lab results. 01/14/23 13:01 01/14/23 13:01 Radiology Impressions Chest X-Ray 01/14/23 14:20 IMPRESSION: 1. Pulmonary hyperinflation which may indicate COPD. No acute process noted. Laboratory Results WBC 5.8 10^3/uL (4.0-10.0) 01/14/23 13: RBC 4.08 10^6/uL (4.1-5.3) L 01/14/23 13:01 Hgb 12.6 g/dL (11.5-15.3) 01/14/23 13:01 Hct 39.1 % (37.0-47.0) 01/14/23 13:01 MCV 95.8 fl (81-99) 01/14/23 13:01 MCH 30.9 pg (28.0-34.0) 01/14/23 13:01 MCHC 32.2 g/dL (30.0-36.0) 01/14/23 13:01 RDW 12.9 % (12.1-15.1) 01/14/23 13:01 Plt Count 257 10^3/cmm (130-400) 01/14/23 13:01 MPV 10.3 fL (7.4-10.4) 01/14/23 13:01 Neut % (Auto) 73.4 % 01/14/23 13:01 Lymph % (Auto) 19.0 % 01/14/23 13:01 Ada % (Auto) 6.2 % 01/14/23 13:01 Eos % (Auto) 0.3 % 01/14/23 13:01 Baso % (Auto) 0.9 % 01/14/23 13:01 Neut # (Auto) 4.28 10^3/uL (1.8-7.7) 01/14/23 13:01 Lymph # (Auto) 1.1 10^3/uL (0.8-4.8) 01/14/23 13:01 Ada # (Auto) 0.4 10^3/uL (0.2-0.9) 01/14/23 13:01 Eos # (Auto) 0.0 10^3/uL (0.0-0.8) 01/14/23 13:01 Baso # (Auto) 0.1 10^3/uL (0.0-0.1) 01/14/23 13:01 Nucleated RBC % (auto) 0 % 01/14/23 13:01 Nucleated RBCs # 0.0 /100WBC 01/14/23 13:01 Sodium 138 mmol/L (136-145) 01/14/23 13:01 Potassium 3.7 mmol/L (3.5-5.1) 01/14/23 13:01 Chloride 101 mmol/L (98-107) 01/14/23 13:01 Carbon Dioxide 23 mmol/L (22-29) 01/14/23 13:01 Anion Gap 17.7 (5-19) 01/14/23 13:01 BUN 16 mg/dL (8-23) 01/14/23 13:01 Creatinine 0.7 mg/dL (0.5-0.9) 01/14/23 13:01 GFR Calculation Not Reportable 01/14/23 13:01 Glucose 104 mg/dL (65-115) 01/14/23 13:01 Calculated Osmolality 287 mOsm/kg (285-295) 01/14/23 13:01 Calcium 10.0 mg/dL (8.5-10.5) 01/14/23 13:01 Total Bilirubin 0.4 mg/dL (0.15-1.2) 01/14/23 13:01 AST 22 U/L (0-32) 01/14/23 13:01 ALT 13 U/L (0-33) 01/14/23 13:01 Alkaline Phosphatase 108 U/L (35-105) H 01/14/23 13:01 Troponin T Baseline 18 ng/L (0-10) H 01/14/23 13:01 Troponin T 120 Minute 18.26 ng/L (0-10) H 01/14/23 15:17 Delta Troponin T 0.26 ABS# (0-10) 01/14/23 15:17 Total Protein 7.3 g/dL (6.6-8.7) 01/14/23 13:01 Albumin 4.7 g/dL (3.5-5.2) 01/14/23 13:01 Globulin 2.6 g/dL (1.3-4.6) 01/14/23 13:01 Discharge Plan Discharge Patient Disposition: Home Clinical Impression: Chest pain Condition: Stable Prescriptions: No Action nitroglycerin 0.4 mg tablet, sublingual 0.4 mg sublingual Q5M PRN (Reason: chest pain) Qty: 30 6RF Rx Instructions: do not exceed 3 doses per episode Excedrin Extra Strength 250-250-65 mg Tablet 2 tab PO QID PRN (Reason: Pain) aspirin 325 mg Tablet 325 mg PO Q6H PRN (Reason: Pain) atorvastatin 20 mg tablet 20 mg PO BEDTIME Plavix 75 mg tablet 75 mg PO BEDTIME Discharge Orders: Discharge ED (Routine); Ordered 01/14/23 Ordered By: Murali Eiwng Referrals: Svetlana Sutton MD [Primary Care Provider] - Christine Rivera MD [Physician] - 3 weeks (ED follow up) Discharge Diet: Usual diet Discharge Activity: Increase activity as tolerated Patient Instructions: Opioid Safety, Pain Management Activity Restrictions/Additional Instructions: As we discussed while you are in the emergency department your determination while you are in the emergency department did not reveal any evidence of a heart attack, heart rhythm problems etc. There is still certainly a possibility that you could be having 1 of these issues occurring intermittently. We have placed a consult in for you to see Dr. Cosme panelboard tank pumper within this month next month to reevaluate you. If you develop sustained chest pain that is not relieved by 3 nitroglycerin, shortness of breath, other concerning symptoms call 911 and return to the emergency department either here or the closest emergency department immediately. Coding Level of Care Code ED Hematologist for Tianna Barber
--- NOTE | 2023-01-14 14:22 | PC.NURSE ---
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
[2023-01-14 14:30] LABS: Basophils # 0.1 10^3/uL (0.0-0.1); Basophils % 0.9 %; Eosinophils % 0.3 %; Hematocrit 39.1 % (37.0-47.0); Hemoglobin 12.6 g/dL (11.5-15.3); Lymphocytes # 1.1 10^3/uL (0.8-4.8); Mean Corpuscular HGB Conc 32.2 g/dL (30.0-36.0); Mean Corpuscular Hemoglobin 30.9 pg (28.0-34.0); Mean Corpuscular Volume 95.8 fl (81-99); Mean Platelet Volume 10.3 fL (7.4-10.4); Monocytes # 0.4 10^3/uL (0.2-0.9); Monocytes % 6.2 %; Neutrophils # 4.28 10^3/uL (1.8-7.7); Neutrophils % 73.4 %; Nucleated Red Blood Cells % 0 %; Platelet Count 257 10^3/cmm (130-400); Red Blood Count 4.08 10^6/uL (4.1-5.3); Red Cell Distribution Width 12.9 % (12.1-15.1); White Blood Count 5.8 10^3/uL (4.0-10.0)
[2023-01-14 14:42] LABS: Troponin(5th) Baseline 18 ng/L (0-10)
[2023-01-14 14:45] LABS: Alanine Aminotransferase 13 U/L (0-33); Albumin Level 4.7 g/dL (3.5-5.2); Alkaline Phosphatase 108 U/L (35-105); Anion Gap 17.7 (5-19); Aspartate Amino Transferase 22 U/L (0-32); Blood Urea Nitrogen 16 mg/dL (8-23); Carbon Dioxide 23 mmol/L (22-29); Chloride 101 mmol/L (98-107); Globulin 2.6 g/dL (1.3-4.6); Glucose 104 mg/dL (65-115); Osmolality Calculated 287 mOsm/kg (285-295); Potassium 3.7 mmol/L (3.5-5.1); Sodium 138 mmol/L (136-145); Total Bilirubin 0.4 mg/dL (0.15-1.2); Total Protein 7.3 g/dL (6.6-8.7)
--- NOTE | 2023-01-14 15:23 | PC.NURSE ---
Report to ROBIN Gusman
[2023-01-14 16:07] LABS: Troponin 5 2HR 18.26 ng/L (0-10)
[2023-01-14 16:15] LABS: Troponin 5 2HR Delta 0.26 ABS# (0-10)
--- NOTE | 2023-01-14 16:20 | ECG_ITS ---
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 Measurements Intervals [place] Rate: 61 P: 64 NE: 190 QRS: 44 QRSD: 94 T: 70 QT: 417 QTc: 423 Interpretive Statements SINUS RHYTHM POSSIBLE LEFT ATRIAL ENLARGEMENT [-0.1mV P-WAVE IN V1/V2] Compared to ECG 01/14/2023 14:38:35 Myocardial infarct finding no longer present Electronically Signed On 01-14-2023 17:37:29 CDT by Jero Alejandro M.D. [id number]
--- NOTE | 2023-01-15 09:03 | DCPLANNER ---
Addendum entered by Sarah Villatoro 03/11/23 10:12: This appointment was cancelled Addendum entered by Sarah Villatoro 01/19/23 09:32: Patient has a follow up appointment scheduled for Wednesday, March 03, 2023 at 2:[address] Rivera at [facility]. Original Note: building manager had message to schedule a follow up appointment for patient with cardiology. building manager sent patients information to the front office staff at [facility]. Patients information will be printed and reviewed. Clinic will call patient with appointment information.
== END 2023-01-14 16:56 | disposition home or self-care (01) ==
PROVIDERS: Emergency Provider Emergency Medicine; PCP Family Medicine
DX: R07.9 Chest pain, unspecified (principal); Z79.02 Long term (current) use of antithrombotics/antiplatelets; I25.2 Old myocardial infarction; I25.10 Atherosclerotic heart disease of native coronary artery without angina pectoris; F17.210 Nicotine dependence, cigarettes, uncomplicated
CPT/HCPCS: 36415; 71045; 80053; 84484; 85025; 93005; 99285

== ENCOUNTER → 2023-04-16 10:53 | Outpatient (BNVA) | payer MEDICARE, SELFPAY | PROVIDERS: PCP Family Medicine; Visit Provider Nurse Practitioner | DX: R50.9 Fever, unspecified (principal); U07.1 COVID-19 | CPT/HCPCS: 87426 ==

== ENCOUNTER → 2025-02-05 16:24 | Outpatient (BNVA) | payer MEDICARE, SELFPAY | PROVIDERS: PCP Family Medicine; Visit Provider Nurse Practitioner Family | DX: R10.9 Unspecified abdominal pain (principal); K56.7 Ileus, unspecified; K52.9 Noninfective gastroenteritis and colitis, unspecified | CPT/HCPCS: 74018 ==

== ENCOUNTER 2025-02-06 08:28 | Inpatient (IN) | payer MEDICARE, SELFPAY ==
[2025-02-06 08:28] VITALS: BP 151/90; PULSE 70; RESP 16; TEMP 36.6; O2SAT 96; BMI 16.6
--- NOTE | 2025-02-06 08:39 | ED_ITS ---
HPI - Nausea/Vomiting/Diarrhea 2 General: Chief complaint: Nausea/Vomiting/Diarrhea Stated complaint: N/V Time Seen by Provider: 02/06/25 08:31 History of Present Illness: 74-year-old female presents emergency ro om episode of nausea vomiting this morning states she has not been eating or drinking well for the last 4 to 5 days states she started vomiting 3 days ago she did see her primary care doctor was given Zofran does not seem to have helped this morning she vomited at home states it was dark she thinks it may have been blood although I asked specifically what caused her to think it was blood she said it may have been red but she did not really see bright red blood. She denies any dysuria urgency or frequency she has chronic issues with her bowels that are unchanged recently. She is on clopidogrel. Does not drink alcohol. Denies any hematochezia or melena Associated nausea: Yes Associated symtoms: Reports nausea; Denies chest pain or dysuria Related Data Home Medications ?Medication ?Instructions ?Recorded ?Confirmed zwaupeo-qkkvbmvgfnfhq-axcvckch 250 2 tab PO QID PRN Pa in 05/25/22 02/06/25 mg-250 mg-65 mg tablet (Excedrin Extra Strength) aspirin 325 mg tablet 325 mg PO Q6H PRN Pain 01/1402/06/25 Previous Rx's ?Medication ?Instructions ?Recorded clopidogrel 75 mg tablet See Rx Instructions .Route 1 08/19/23 .COMPLEX #90 tabs nitroglycerin 0.4 mg sublingual See Rx Instructions .R oute 11/02/24 tablet .COMPLEX #25 tabs ondansetron HCl 4 mg tablet 4 mg PO Q8H PRN nausea and 02/05/25 vomiting 7 days #20 tabs Allergies Allergy/AdvReac Type Severity Reaction Status Date / Time Penicillins Allergy Intermediate sick Verified 02/05/25 16:01 azithromycin (From Zithromax Allergy ADR-Abdominal Verified 02/05/25 16:01 Z-Dre) Pain Review of Systems 2 Const: Denies: fever(s) or chills Card: Denies: chest pain Resp: Denies: dyspnea GI: Reports: nausea and vomiting; Denies: abdominal pain : Denies: dysuria, urinary frequency or urinary urgency Musc: Denies: neck pain or back pain Skin/Breast: Denies: rash PFSH ED 2 PFSH: Medical History Gastroenteritis Ileus Abdominal pain Atherosclerosis of coronary artery Smoking addiction Chronic back pain Osteoarthritis CAD (coronary artery disease) Acute non-ST elevation myocardial infarction (NSTEMI) Close exposure to COVID-19 virus Lower respiratory infection Surgical History Hx of tubal ligation History of coronary artery stent placement 04/18/11 Family History Other CAD (coronary artery disease) Diabetes Hypertension Social History Smoking and tobacco/nicotine status: current every day tobacco/nicotine user cigarettes Packs smoked per day: 1 Years cigarettes smoked: 50 Alcohol intake: current Alcohol intake frequency: holidays/special occasions only Substance/Drug Use: never Lives independently: Yes Household members: none Marital status: / Physical Exam 2 Const: COMMON NORMALS: no acute distress GENERAL APPEARANCE: cooperative and comfortable ORIENTATION/CONSCIOUSNESS: Yes awake, Yes oriented to person, Yes oriented to place and Yes oriented to time HENMT: COMMON NORMALS: normocephalic, atraumatic and hearing grossly normal bilaterally HEAD & SCALP: normocephalic and atraumatic Resp: COMMON NORMALS: normal respiratory effort, No retractions, No use of accessory muscles and clear to auscultation bilaterally AUSCULTATION: clear to auscultation bilaterally Cardio: COMMON NORMALS: regular rate, regular rhythm and No murmurs present (Cardio) RATE: regular rate RHYTHM: regular rhythm GI: COMMON NORMALS: Soft to palpation and No hepatosplenomegaly present A USCULTATION: Yes normoactive bowel sounds PALPATION: Yes Soft to palpation, No Tenderness to palpation present (GI), No Guarding due to palpation present (GI) and Yes No hepatosplenomegaly present Extremity: COMMON NORMALS: normal to inspection, capillary refill normal, no clubbing, cyanosis or edema, no calf tenderness and no pedal edema Neuro: SENSORIUM/ORIENTATION: Yes oriented to person, Yes oriented to place and Yes oriented to time Skin: COMMON NORMALS: no rashes or lesions noted GENERAL SKIN EXAM: no rashes or lesions noted Course 2 Vital Signs: Vital signs: Vital Signs Temperature 97.8 F 02/06/25 08:28 Pulse Rate 78 02/06/25 11:34 Respiratory Rate 16 02/06/25 08:28 Blood Pressure 160/90 02/06/25 11:34 Pulse Oximetry 96 02/06/25 11:34 Oxygen Delivery Me thod Room Air 02/06/25 11:34 MDM - Nausea/Vomiting/Diarrhea Medical Decision Making Significant distention of the stomach cavity suspect some form of gastric outlet obstruction and also some ulcer present very minimal elevation in BUN hemoglobin stable discussed with hospitalist and with surgery will admit placed NG tube to decompress stomach. Started on Protonix orders written Medical Records I reviewed the patient's medical records. Lab Data I reviewed the patient's lab results. 02/06/25 09:02 02/06/25 09:02 Radiology Impressions Abdomen/Pelvis CT 02/06/25 09:38 IMPRESSION: 1. Massive fluid distention of the stomach. Recommend nasogastric tube insertion. 2. Enhancement surrounding the duodenal ulcer measuring 11 mm. 3. Atherosclerosis aorta. 4. No free air identified. 5. Marked constipation with overlapping loops of colon. 6. No renal obstruction. Chest X-Ray 02/06/25 11:15 IMPRESSION: 1. NG tube ending in the stomach as noted above. 2. Questionable new 2 cm soft tissue nodule in the lateral mid RIGHT lung. A detailed nonemergent PA and lateral chest radiograph would be recommended for follow-up. 3. Cardiac enlargement unchanged. Pulmonary hyperinflation. Laboratory Results WBC 13.27 10^3/uL (3.29-11.43) H 02/06/25 09:02 RBC 4.02 10^6/uL (3.85-5.65) 02/06/25 09:02 Hgb 12.40 g/dL (11.27-16.99) 02/06/25 09:02 Hct 38.5 % (36-47) 02/06/25 09:02 MCV 95.8 fl (85-98) 02/06/25 09:02 MCH 30.8 pg (27-33) 02/06/25 09:02 MCHC 32.2 g/dL (30-55) 02/06/25 09:02 RDW 13.4 % (12.1-15.1) 02/06/25 09:02 Plt Count 293 10^3/cmm (157-399) 02/06/25 09:02 MPV 9.3 fL (7.4-10.4) 02/06/25 09:02 Neut % (Auto) 86.5 % 02/06/25 09:02 Lymph % (Auto) 7.8 % 02/06/25 09:02 [place] % (Auto) 4.7 % 02/06/25 09:02 Eos % (Auto) 0.0 % 02/06/25 09:02 Baso % (Auto) 0.5 % 02/06/25 09:02 Neut # (Auto) 11.49 10^3/uL (1.8-7.7) H 02/06/25 09:02 Lymph # (Auto) 1.0 10^3/uL (0.8-4.8) 02/06/25 09:02 [place] # (Auto) 0.6 10^3/uL (0.2-0.9) 02/06/25 09:02 Eos # (Auto) 0.0 10^3/uL (0.0-0.8) 02/06/25 09:02 Baso # (Auto) 0.1 10^3/uL (0.0-0.1) 02/06/25 09:02 Nucleated RBC % (auto) 0 % 02/06/25 09:02 Nucleated RBCs # 0.0 /100WBC 02/06/25 09:02 Sodium 136 mmol/L (136-145) 02/06/25 09:02 Potassium 3.2 mmol/L (3.5-5.1) L 02/06/25 09:02 Chloride 93 mmol/L (98-107) L 02/06/25 09:02 Carbon Dioxide 28 mmol/L (22-29) 02/06/25 09:02 Anion Gap 18.2 (5-19) 02/06/25 09:02 BUN 26 mg/dL (8-23) H 02/06/25 09:02 Creatinine 0.8 mg/dL (0.5-0.9) 02/06/25 09:02 GFR Calculation Not Reportable 02/06/25 09:02 Glucose 120 mg/dL (65-115) H 02/06/25 09:02 Calculated Osmolality 288 mOsm/kg (285-295) 02/06/25 09:02 Calcium 10.0 mg/dL (8.5-10.5) 02/06/25 09:02 Total Bilirubin 0.4 mg/dL (0.15-1.2) 02/06/25 09:02 AST 19 U/L (0-32) 02/06/25 09:02 ALT 9 U/L (0-33) 02/06/25 09:02 Alkaline Phosphatase 95 U/L (35-105) 02/06/25 09:02 Total Protein 7.3 g/dL (6.6-8.7) 02/06/25 09:02 Albumin 4.2 g/dL (3.5-5.2) 02/06/25 09:02 Globulin 3.1 g/dL (1.3-4.6) 02/06/25 09:02 Lipase 18 U/L (13-60) 02/06/25 09:02 Urine Color [place] (Yellow) A 02/06/25 08:50 Urine Appearance Clear (CLEAR) 02/06/25 08:50 Urine pH 6.5 (5-7) 02/06/25 08:50 Ur Specific [place] 1.018 (1.005-1.030) 02/06/25 08:50 Urine Protein Negative (Negative) 02/06/25 08:50 Urine Glucose (UA) Negative (Normal) 02/06/25 08:50 Urine Ketones 1+ (Negative) H 02/06/25 08:50 Urine Blood Negative (Negative) 02/06/25 08:50 Urine Nitrate Negative (Negative) 02/06/25 08:50 Urine Bilirubin Negative (Negative) 02/06/25 08:50 Urine Urobilinogen 1.0 mg/dL (Negative) 02/06/25 08:50 Ur Leukocyte Esterase Negative (Negative) 02/06/25 08:50 Urine RBC 0-2 /hpf (0-2) 02/06/25 08:50 Urine WBC 0-5 /hpf (0-5) 02/06/25 08:50 Ur Squamous Epith Cells 0-5 /hpf (0-5) 02/06/25 08:50 Amorphous Sediment Not Reportable 02/06/25 08:50 Urine Bacteria None seen /hpf (NONE) 02/06/25 08:50 Hyaline Casts 7.85 /lpf 02/06/25 08:50 All radiology interpretation(s) finalized by discharge Discharge Plan Discharge Patient Disposition: Placed in Observation Admit Provider: Rahul Flood Clinical Impression: Gastric outlet obstruction, Gastric ulcer Coding Level of Care Code ED Smoke Inspector for Tianna Barber
[2025-02-06 09:08] LABS: Basophils # 0.1 10^3/uL (0.0-0.1); Basophils % 0.5 %; Hematocrit 38.5 % (36-47); Lymphocytes % 7.8 %; Mean Corpuscular HGB Conc 32.2 g/dL (30-55); Mean Corpuscular Hemoglobin 30.8 pg (27-33); Mean Corpuscular Volume 95.8 fl (85-98); Mean Platelet Volume 9.3 fL (7.4-10.4); Monocytes # 0.6 10^3/uL (0.2-0.9); Monocytes % 4.7 %; Neutrophils # 11.49 10^3/uL (1.8-7.7); Neutrophils % 86.5 %; Nucleated Red Blood Cells % 0 %; Platelet Count 293 10^3/cmm (157-399); Red Blood Count 4.02 10^6/uL (3.85-5.65); Red Cell Distribution Width 13.4 % (12.1-15.1); White Blood Count 13.27 10^3/uL (3.29-11.43)
[2025-02-06 09:14] LABS: Bilirubin Urine Negative (Negative); Blood Urine Negative (Negative); Glucose Urine UA Negative (Normal); Ketones Urine 1+ (Negative); Leukocyte Esterase Urine Negative (Negative); Nitrate Urine Negative (Negative); Protein Urine Negative (Negative); Specific Gravity, Urine 1.018 (1.005-1.030); Urine Appearance Clear (CLEAR); pH Urine 6.5 (5-7)
[2025-02-06 09:18] LABS: Add Urine Microscopic? YES; Bacteria Urine None Seen /hpf; Hyaline Casts Urine 7.85 /lpf; RBC Urine 0-2 /hpf (0-2); Squamous Epithelial Cell Urine 0-5 /hpf (0-5); WBC Urine 0-5 /hpf (0-5)
[2025-02-06 09:29] LABS: Alanine Aminotransferase 9 U/L (0-33); Albumin Level 4.2 g/dL (3.5-5.2); Alkaline Phosphatase 95 U/L (35-105); Anion Gap 18.2 (5-19); Aspartate Amino Transferase 19 U/L (0-32); Blood Urea Nitrogen 26 mg/dL (8-23); Carbon Dioxide 28 mmol/L (22-29); Chloride 93 mmol/L (98-107); Creatinine Clr Calc Pharmacy 43.5084; Globulin 3.1 g/dL (1.3-4.6); Glucose 120 mg/dL (65-115); Lipase 18 U/L (13-60); Osmolality Calculated 288 mOsm/kg (285-295); Potassium 3.2 mmol/L (3.5-5.1); Sodium 136 mmol/L (136-145); Total Bilirubin 0.4 mg/dL (0.15-1.2); Total Protein 7.3 g/dL (6.6-8.7)
--- NOTE | 2025-02-06 09:38 | CT_ITS ---
WS: [id number] CT ABDOMEN AND PELVIS WITH CONTRAST HISTORY: abd pain/? Coffee-ground emesis TECHNIQUE: Imaging performed of the abdomen and pelvis with IV contrast. Single phase imaging of the abdomen. Coronal and sagittal reformats are submitted. All CT scans at [facility] use at least one of these dose optimization techniques: automated exposure control; mA and/or kV adjustment per patient size (includes targeted exams where dose is matched to clinical indication); or iterative reconstruction. IV CONTRAST: Omnipaque 350; 100 mL IV. Oral contrast: No DLP: 281.48 mGy.cm COMPARISON: None available. Lower thorax: Lung bases are clear. Heart is deformed by mild pectus excavatum. Mild motion artifact. No hiatal hernia. Liver/biliary system: 6 mm nodule decreased attenuation superior RIGHT lobe. Additional central low-attenuation hepatic lesion measures 11 mm. Portal vein is patent. Gallbladder: Normal. No gallstones or wall thickening. No pericholecystic fluid. Pancreas: Limited visualization of the pancreas. Pancreas is being displaced and atrophied. Pancreatic duct measuring less than 2 mm. The pancreatic head is poorly visualized. Spleen: Normal size with granulomata. Adrenal glands: Normal RIGHT adrenal gland. Mild thickening of the LEFT adrenal gland. Right kidney: No obstruction. Cortical cysts. Left kidney: No obstruction. Cortical cyst. Motion artifact. Aorta: Moderate atherosclerotic plaque throughout the aorta. Mesenteric arteries are patent proximally. Lymphadenopathy: None. Free fluid: None. GI tract: Massive distention of the stomach with fluid predominantly. J-shaped appearance of the stomach displacing the GI tract and the visceral organs. Stomach is dilated to the first portion of the of the duodenum. There is mild wall thickening of the duodenum with enhancement. There is a focal area of mixed density measuring 12 mm in the duodenal wall suspicious for an ulcer. This is surrounded by hypervascularity. Majority of the small bowel is decompressed. Moderate diffuse constipation with overlapping tortuous loops of colon. Abdominal wall: Unremarkable abdominal wall. No hernia. Pelvis: Pelvic structures are difficult to visualize. The uterus is still present and atrophic. Bones: Osteopenia. CT/CT abdomen pelvis w con* [id number] IMPRESSION: 1. Massive fluid distention of the stomach. Recommend nasogastric tube inserti on. 2. Enhancement surrounding the duodenal ulcer measuring 11 mm. 3. Atherosclerosis aorta. 4. No free air identified. 5. Marked constipation with overlapping loops of colon. 6. No renal obstruction.
[2025-02-06] MEDS: iohexol 350 mg/mL 500 mL Btl (per mL) IV (09:57)
[2025-02-06 10:07] LABS: Urine Color Orange (Yellow)
[2025-02-06 10:08] LABS: UA Slide Review UA Slide Review Perf
--- NOTE | 2025-02-06 11:15 | XR_ITS ---
WS: [id number] Exam: XR chest 1V portable [id number] Date/Time of Exam: 02/06/2025 11:15 AM Reason For Exam: post ng placement Comparison 01/14/2023. An NG tube has been placed and extends into the stomach probably ending in the region of the lower body or antrum. The lungs are fully expanded. Mild cardiac enlargement unchanged. Questionable new irregular soft tissue nodule in the mid RIGHT lung. Superimposed chronic interstitial changes. Hyperinflation. Radiographic contrast noted in the bilateral renal collecting structures. Bony structures are intact. XR/XR chest 1V portable [id number] IMPRESSION: 1. NG tube ending in the stomach as noted above. 2. Questionable new 2 cm soft tissue nodule in the lateral mid RIGHT lung. A de tailed nonemergent PA and lateral chest radiograph would be recommended for fol low-up. 3. Cardiac enlargement unchanged. Pulmonary hyperinflation.
[2025-02-06 11:34] VITALS: BP 160/90; PULSE 78; O2SAT 96
--- NOTE | 2025-02-06 12:06 | P.CONIM_ITS ---
Providers/Reason For Consult 2 Consulting Physician/Specialty*: dr hung general surgery Reason for Consult*: duodenal ulcer Primary Care Provider: Svetlana Sutton MD History of Present Illness History of Present Illness Yoselyn Lund is a 74 year old female who presents with melena. CT concerning for large duodenal ulcer. NGT placed for possible GOO. Abdomen benign. Medications/Allergies Home Medications ?Medication ?Instructions ?Recorded ?Confirmed ?Last Taken ?Type [id number]-[id number]-[id number] 250 2 tab PO QID PRN Pa in 05/25/22 02/06/25 02/05/25 History mg-250 mg-65 mg tablet (Excedrin Extra Strength) aspirin 325 mg tablet 325 mg PO Q6H PRN Pain 01/1402/06/25 02/04/25 History clopidogrel 75 mg tablet See Rx Instructions .Route 1 08/19/23 02/06/25 02/04/25 Rx .COMPLEX #90 tabs nitroglycerin 0.4 mg sublingual See Rx Instructions .R oute 11/02/24 02/06/25 Unknown Rx tablet .COMPLEX #25 tabs ondansetron HCl 4 mg tablet 4 mg PO Q8H PRN nausea and 02/05/25 02/06/25 02/05/25 Rx vomiting 7 days #20 tabs Allergies Allergy/AdvReac Type Severity Reaction Status Date / Time Penicillins Allergy Intermediate sick Verified 02/05/25 16:01 azithromycin (From Zithromax Allergy ADR-Abdominal Verified 02/05/25 16:01 Z-Dre) Pain PFSH Acute 2 PFSH: Medical History Gastroenteritis Ileus Abdominal pain Atherosclerosis of coronary artery Smoking addiction Chronic back pain Osteoarthritis CAD (coronary artery disease) Acute non-ST elevation myocardial infarction (NSTEMI) Close exposure to COVID-19 virus Lower respiratory infection Surgical History Hx of tubal ligation History of coronary artery stent placement 04/18/11 Family History Other CAD (coronary artery disease) Diabetes Hypertension Social History Smoking and tobacco/nicotine status: current every day tobacco/nicotine user cigarettes Packs smoked per day: 1 Years cigarettes smoked: 50 Alcohol intake: current Alcohol intake frequency: holidays/special occasions only Substance/Drug Use: never Lives independently: Yes Household members: none Marital status: / Vitals/I&O/Wt Last Vital Signs Temp 97.8 F 02/06/25 08:28 Pulse 78 02/06/25 11:34 Resp 16 02/06/25 08:28 BP 160/90 02/06/25 11:34 Pulse Ox 96 02/06/25 11:34 O2 Del Method Room Air 02/06/25 11:34 02/05/25 02/06/25 02/06/25 22:59 06:59 14:59 Intake Total 500 / 500 Output Total 1000 / 1000 Balance -500 / -500 Weight last 48 hrs Weight 166 lb Weight 100 lb Physical Exam 2 Narrative: rrr unlabored breathing ra abdomen soft, nt, nd Data 02/07/25 08:32 02/07/25 02:55 A&P Assessment and plan (1) GI bleeding: (2) Duodenal ulcer: Plan 74 yo female who presented with melena. Surgery consulted for EGD. NPO at midnight. Keep NGT to LCS. Resuscitate. Protonix. PDMP PDMP Reviewed: Not Reviewed Coding Level of Care Code 41684 Diagnoses GI bleeding K92.2 Duodenal ulcer K26.9
[2025-02-06] MEDS: pantoprazole 40 mg SDV 80 MG IVP (13:22)
[2025-02-06 13:26] VITALS: BP 146/92; PULSE 75; RESP 16; O2SAT 95
[2025-02-06 13:46] LABS: Gastricult Occult Blood Positive (Negative)
--- NOTE | 2025-02-06 13:50 | P.HP_ITS ---
Providers/Chief Complaint 2 Admitting Physician: Rahul Flood Primary Care Provider: Svetlana Sutton MD Chief Complaint: N/V History of Present Illness Yoselyn Lund is a 74 year old patient with a history of coronary artery disease, chronic back pain, osteoarthritis, and smoking, presenting to the emergency department due to an episode of nausea and vomiting. The vomiting began about three days ago and has prevented the patient from eating or drinking for the last 4-5 days. The patient was prescribed Zofran by their primary provider, but it did not provide relief. This morning, the patient experienced vomiting with dark contents and questioned whether it could be blood. The patient denies hematochezia, melena, fever, chills, sore throat, cough, headache, diarrhea, rashes, or blood in the urine. The patient reports taking Excedrin (about three doses daily) and is also on Plavix and aspirin as advised by their heart doctor. The patient has cut down on smoking to three or four cigarettes a day and drinks alcohol occasionally (one or two drinks per week). The patient lives alone but has family nearby. There is discussion regarding the risks of CPR and intubation, with the patient expressing a preference against resuscitation efforts if their heart stops, but would consider ventilator support if recovery is likely. Review of Systems 2 Const: Reports: change in appetite; Denies: fever(s), chills, body aches or malaise ENMT: Denies: throat pain Card: Denies: chest pain, edema, pre-syncope or dyspnea on exertion Resp: Denies: dyspnea, productive cough, change in phlegm color or hemoptysis GI: Reports: nausea, vomiting, bloating and other (Dark vomitus); Denies: diarrhea, constipation, hematochezia or melena : Denies: flank pain, urinary frequency or hematuria Musc: Denies: back pain, joint swelling or joint redness Skin/Breast: Denies: rash or new lesions Neuro: Denies: headache(s) or confusion Medications/Allergies Home Medications ?Medication ?Instructions ?Recorded ?Confirmed ?Last Taken ?Type yrpwiss-qfazprlpwlzgh-vuchpakp 250 2 tab PO QID PRN Pa in 05/25/22 02/06/25 02/05/25 History mg-250 mg-65 mg tablet (Excedrin Extra Strength) aspirin 325 mg tablet 325 mg PO Q6H PRN Pain 01/1402/06/25 02/04/25 History clopidogrel 75 mg tablet See Rx Instructions .Route 1 08/19/23 02/06/25 02/04/25 Rx .COMPLEX #90 tabs nitroglycerin 0.4 mg sublingual See Rx Instructions .R oute 11/02/24 02/06/25 Unknown Rx tablet .COMPLEX #25 tabs ondansetron HCl 4 mg tablet 4 mg PO Q8H PRN nausea and 02/05/25 02/06/25 02/05/25 Rx vomiting 7 days #20 tabs Allergies Allergy/AdvReac Type Severity Reaction Status Date / Time Penicillins Allergy Intermediate sick Verified 02/05/25 16:01 azithromycin (From Zithromax Allergy ADR-Abdominal Verified 02/05/25 16:01 Z-Dre) Pain PFSH Acute 2 PFSH: Medical History Gastroenteritis Ileus Abdominal pain Atherosclerosis of coronary artery Smoking addiction Chronic back pain Osteoarthritis CAD (coronary artery disease) Acute non-ST elevation myocardial infarction (NSTEMI) Close exposure to COVID-19 virus Lower respiratory infection Surgical History Hx of tubal ligation History of coronary artery stent placement 04/18/11 Family History Other CAD (coronary artery disease) Diabetes Hypertension Social History Smoking and tobacco/nicotine status: current every day tobacco/nicotine user cigarettes Packs smoked per day: 1 Years cigarettes smoked: 50 Alcohol intake: current Alcohol intake frequency: holidays/special occasions only Substance/Drug Use: never Lives independently: Yes Household members: none Marital status: / Vitals/I&O/Wt Last Vital Signs Temp 97.8 F 02/06/25 08:28 Pulse 75 02/06/25 13:26 Resp 16 02/06/25 13:26 BP 146/92 02/06/25 13:26 Pulse Ox 95 02/06/25 13:26 O2 Del Method Room Air 02/06/25 13:26 02/05/25 02/06/25 02/06/25 22:59 06:59 14:59 Intake Total 500 / 500 Output Total 1000 / 1000 Balance -500 / -500 Weight last 48 hrs Weight 75.296 kg Weight 45.359 kg Physical Exam 2 Narrative: Accompanied by her family including her son Const: COMMON NORMALS: patient oriented x3 and alert GENERAL APPEARANCE: c ooperative ORIENTATION/CONSCIOUSNESS: Yes awake HENMT: COMMON NORMALS: oropharynx normal OTHER: NGT in place Neck/C-Spine: COMMON NORMALS: no JVD Resp: COMMON NORMALS: normal respiratory effort and clear to auscultation bilaterally AUSCULTATION: clear to auscultation bilaterally Cardio: COMMON NORMALS: no JVD, regular rhythm, S1 normal heart sound present, S2 normal heart sound present and No murmurs present (Cardio) RHYTHM: regular rhythm HEART SOUNDS: S1 normal heart sound present and S2 normal heart sound present GI: COMMON NORMALS: Soft to palpation INSPECTION: Yes abdominal distension PALPATION: Yes Soft to palpation and Yes Tenderness to palpation present (GI) (Central upper) Extremity: COMMON NORMALS: no joint enlargement and no pedal edema Neuro: COMMON NORMALS: patient oriented x3 and moves all extremities S ENSORIUM/ORIENTATION: Yes alert Skin: COMMON NORMALS: no rashes or lesions noted GENERAL SKIN EXAM: no rashes or lesions noted Data 02/06/25 09:02 02/06/25 09:02 A&P Assessment and plan (1) Gastric outlet obstruction: The patient presents with several days of nausea and vomiting, unable to tolerate oral intake. Vomiting included dark contents, possible upper GI bleeding. Zofran was ineffective. No associated fever, chills, sore throat, cough, headache, diarrhea, or rashes. No hematochezia or melena reported. Reviewed vitals, CBC, CMP, UA, Gastroccult, CT abdomen pelvis, chest x-ray, ED provider note, discussed with ED provider. - NPO (nothing by mouth) status to rest the GI tract. - Discussed with surgery, surgery was with her about endoscopy tomorrow with additional assessment and biopsy of the structure that appears as an ulcer, although she is a smoker, has discussed with her risk of GI among other malignancy - Continued IV fluids to prevent dehydration. Monitor for risk of fluid overload. - Continue acid ventura medications (IV proton pump inhibitor, e.g., Protonix) twice daily to reduce gastric inflammation. - Monitor for resolution of vomiting and ability to tolerate oral intake before advancing diet. (2) Duodenal ulcer: As above (3) GI bleeding: Possible upper gastrointestinal bleeding : Vomiting with dark contents raises concern for upper GI bleeding, possibly related to duodenal ulcer and use of Excedrin (contains aspirin) and other antiplatelet agents. No bright red blood, melena, or hematochezia reported. No blood in urine. The patient is on Plavix and aspirin, increasing bleeding risk. - Monitor for ongoing bleeding (e.g., repeat assessment of vomitus, monitor hemoglobin/hematocrit as indicated). - Hold Excedrin and aspirin for now due to risk of GI bleeding. - Plan for upper endoscopy (scope) to evaluate for source of bleeding and possible biopsy if abnormal findings are seen. Plan Hypokalemia: Replace potassium Coronary artery disease : History of coronary artery disease. On Plavix and aspirin for secondary prevention. Aspirin and Excedrin use discussed in context of GI bleeding concern. No acute cardiac symptoms reported. - Continue Plavix as per cardiology recommendation. - Hold aspirin and Excedrin for now due to GI bleeding risk. Chronic back pain : Chronic back pain managed with Excedrin (contains aspirin). Use of Excedrin is contributing to GI symptoms and risk of ulcer/bleeding. - Discontinue Excedrin due to GI risk. Alternative pain management to be considered after acute GI issues are addressed. Osteoarthritis : History of osteoarthritis. Tobacco use disorder : Patient is a current smoker (three to four cigarettes per day), has cut down from previous use. Risks of continued smoking discussed, including heart disease, stroke, and cancer. Patient is open to nicotine replacement therapy while hospitalized. - Offer nicotine patch or lozenge to help with cravings during hospitalization. - Encourage continued efforts to quit smoking. PDMP PDMP Reviewed: Not Reviewed Attestations 2 Medical Necessity Statement*: Admission over 2 midnights dissipated for assessment management of gastric outlet obstruction, GI bleeding, and a lady with underlying coronary disease, smoking, additional medical problems as above and High MDM includes amount and/or complexity of data reviewed/ordered [ previous or external records, resulted lab(s)/test(s), ordered lab(s)/test(s) and other healthcare professional discussion] and described risk of complication, morbidity or mortality of management as documented Diagnoses Gastric outlet obstruction K31.1 Duodenal ulcer K26.9 GI bleeding K92.2
[2025-02-06] MEDS: lidocaine 1% 5 ML in potassium chloride premix 100 ML 26.25 ML IV (14:38)
[2025-02-06 14:58] VITALS: BMI 15.0
[2025-02-06 15:11] VITALS: BP 108/61; PULSE 63; O2SAT 95
[2025-02-06 15:32] VITALS: BP 159/90; PULSE 76; RESP 16; TEMP 36.9; O2SAT 99
[2025-02-06 15:39] LABS: Hematocrit 27.8 % (36-47)
[2025-02-06] MEDS: lactated ringers 1,000 ML 75 ML IV (17:41)
[2025-02-06] MEDS: acetaminophen 325 mg Tablet 650 MG PO (17:48)
[2025-02-06 19:18] LABS: Hematocrit 30.1 % (36-47)
[2025-02-06 20:00] VITALS: BP 131/78; PULSE 74; RESP 16; TEMP 36.9; O2SAT 95
[2025-02-06 23:02] LABS: Hematocrit 33.5 % (36-47)
[2025-02-06] MEDS: pantoprazole 40 mg SDV IVP (23:07)
[2025-02-07] VITALS (7 sets, daily range): BP systolic 134–159; BP diastolic 72–93; PULSE 65–87; RESP 16–17; TEMP 36.6–37.2; O2SAT 92–99
[2025-02-07 03:20] LABS: Alanine Aminotransferase 8 U/L (0-33); Albumin Level 3.7 g/dL (3.5-5.2); Alkaline Phosphatase 78 U/L (35-105); Anion Gap 16.5 (5-19); Aspartate Amino Transferase 17 U/L (0-32); Blood Urea Nitrogen 19 mg/dL (8-23); Calcium 9.8 mg/dL (8.5-10.5); Carbon Dioxide 27 mmol/L (22-29); Chloride 99 mmol/L (98-107); Creatinine Clr Calc Pharmacy 39.1575; Globulin 2.6 g/dL (1.3-4.6); Glucose 79 mg/dL (65-115); Osmolality Calculated 289 mOsm/kg (285-295); Phosphorus 2.4 mg/dL (2.5-4.5); Potassium 3.5 mmol/L (3.5-5.1); Sodium 139 mmol/L (136-145); Total Bilirubin 0.4 mg/dL (0.15-1.2); Total Protein 6.3 g/dL (6.6-8.7)
[2025-02-07] MEDS: lactated ringers 1,000 ML 75 ML IV ×2 (06:06→22:06)
[2025-02-07] MEDS: acetaminophen 325 mg Tablet 650 MG PO ×2 (06:10→17:32)
[2025-02-07 08:39] LABS: Hematocrit 35.5 % (36-47)
--- NOTE | 2025-02-07 08:59 | PC.CHAP ---
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 [] Patient/Family/Request visit [] Outpatient visit [] Follow-up visit [] Physician referral [] Code/Alert [x] Routine visit [] Staff referral [] Actively dying [] Patient sleeping [] Family support [] [] Out of room [] Palliative care [] [] Receiving care in room [] Pre-surgical visit [] Trauma [] Long length of stay [] ICU visit [] Other: Relational/Emotional Strength [x] Patient feels connected with others/family/visitors/staff [] Distress [] Loneliness/isolation [] Abandonment Spirituality of Patient [] Person of Margarita [] Attends Gnosticist of their Margarita [] Believes in Prayer [] Reads Bible or Spiritism materials [x] There are Spiritual issues to be addressed [employer]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 Interventions [] Prayer [x] Active listening [x] Non-anxious presence [x] Spiritual/emotional support [] Crisis/trauma care [] Spiritual counseling [] Bereavement support [] Provided bereavement packet [] Provided Bible/devotional materials [] Provided toy/stuffed animal, coloring book to patient or family member [] Provided Communion [] Anointing/[place] [] Salvation [x] Completed spiritual assessment [] Other: Impact on Illness or Injury [] Angry [] Fearful [] Anxious [] Often cries [] Exhaustion [] Unable to work [] Unable to attend sikh [] Unable to walk/stand [] Unable to read [] Unable to drive [] Unable to eat/drink [] Unable to sleep [] Unable to be with family [] Patient intubated [] Other: Summary Time spent with patient 5 min
--- NOTE | 2025-02-07 10:51 | P.PN_ITS ---
Subjective 2 Subjective: NGT out Passing gas Not nauseated No emesis Vitals/I&O/Wt Last Vital Signs Temp 98.3 F 02/07/25 07:24 Pulse 79 02/07/25 07:24 Resp 17 02/07/25 07:24 BP 151/87 02/07/25 07:24 Pulse Ox 94 02/07/25 07:24 O2 Del Method Room Air 02/07/25 07:24 02/06/25 02/07/25 02/07/25 22:59 06:59 14:59 Intake Total 105 / 605 931.25 / 1536.25 Balance 105 / -395 931.25 / 536.25 Weight last 48 hrs Weight 86 lb Weight 90 lb Weight 166 lb Weight 100 lb Physical Exam 2 Narrative: rrr unlabored breathing ra abdomen soft, nt, nd Data 02/07/25 08:32 02/07/25 02:55 A&P Assessment and plan (1) Duodenal ulcer: (2) GI bleeding: Plan 74 yo female who presented with melena. CT concerning for large duodenal ulcer. NGT out. Discussed risks and benefits of EGD and possible biopsy, and patient did not want to proceed. Ok for clears. If she becomes nauseated recommend replacing NGT to LCS. Continue protonix BID. Will follow. PDMP PDMP Reviewed: Not Reviewed Attestations 2 Medical Necessity Statement*: NA Coding Level of Care Code 18647 Diagnoses Duodenal ulcer K26.9 GI bleeding K92.2
[2025-02-07] MEDS: pantoprazole 40 mg SDV IVP ×2 (10:59→20:54)
[2025-02-07] MEDS: nicotine 7 mg Patch 1 PATCH TRANSDERMA (10:59)
--- NOTE | 2025-02-07 13:19 | ANES.PREANE2 ---
Pre-Anesthetic Assessment Height/Weight: Height 1.65 m Weight 39.009 kg Temp Pulse Resp BP Pulse Ox O2 Del Method 98.3 F 75 16 139/93 99 Room Air 02/07/25 13:00 02/07/25 13:00 02/07/25 13:00 02/07/25 13:00 02/07/25 13:00 02/07/25 13:00 Operation Date: 02/07/25 14:25 Proposed Procedures p EGD(Not Applicable) - Willard Noble MD Familial anesthetic complications: None Was Beta Amarilys taken within 24 hours: N/A Was Clonidine taken within 24 hours: N/A Last intake: > 8 hrs Social No alcohol and No tobacco Exam alert, oriented x 3, clear to auscultation bilaterally and regular rate & rhythm CV/HEM Coronary Artery Disease, Hypertension and Myocardial Infarction GI 02/06 CT abdomen IMPRESSION: 1. Massive fluid distention of the stomach. Recommend nasogastric tube insertion. NG tube placed, but no repeat imaging of stomach and NG tube has since been dislodged Anesthetic Plan ASA status: 4 Anesthesia: General Other: RSI for possible residual full stomach as seen in imaging yesterday and NG dislodgement Risk of > 500 ml blood loss (7ml/kg in children): No Medications/Allergies Home Medications ?Medication ?Instructions ?Recorded ?Confirmed ?Last Taken ?Type tshfbkc-efrdyrghbkwnd-wpkngodc 250 2 tab PO QID PRN Pain 05/25/22 02/06/25 02/05/25 History mg-250 mg-65 mg tablet (Excedrin Extra Strength) aspirin 325 mg tablet 325 mg PO Q6H PRN Pain 01/14/23 02/06/25 02/04/25 History clopidogrel 75 mg tablet See Rx Instructions .Route 06/19/24 02/06/25 02/04/25 Rx .COMPLEX #90 tabs nitroglycerin 0.4 mg sublingual See Rx Instructions .Route 11/02/24 02/06/25 Unknown Rx tablet .COMPLEX #25 tabs ondansetron HCl 4 mg tablet 4 mg PO Q8H PRN nausea and 02/05/25 02/06/25 02/05/25 Rx vomiting 7 days #20 tabs Allergies Allergy/AdvReac Type Severity Reaction Status Date / Time Penicillins Allergy Intermediate sick Verified 02/05/25 16:01 azithromycin (From Zithromax Allergy ADR-Abdominal Verified 02/05/25 16:01 Z-Dre) Pain Current Medications Generic Name Dose Route Start Last Admin Trade Name Freq PRN Reason Stop Dose Admin Acetaminophen 650 mg 02/06/25 14:58 02/07/25 06:10 Acetaminophen 325 Mg Tablet PO 650 mg On Hold: 02/07/25 12:59 Q6H PRN Administration Comment: Order held by Process Mild/Mod Pain Or Temp >/= 101 Transfer Lactated Ringer's 1,000 mls @ 75 mls/hr 02/06/25 16:15 02/07/25 06:06 Lactated Ringers IV 75 mls/hr On Hold: 02/07/25 12:59 .[id number] MARCOS Administration Comment: Order held by Process Transfer Nicotine 1 patch 02/06/25 14:10 02/07/25 10:59 Nicotine 7 Mg Patch TRANSDERMA 1 patch On Hold: 02/07/25 12:59 DAILY MARCOS Administration Comment: Order held by Process Transfer Pantoprazole Sodium 40 mg 02/06/25 22:00 02/07/25 10:59 Pantoprazole 40 Mg Sdv IVP 40 mg On Hold: 02/07/25 12:59 Q12H MARCOS Administration Comment: Order held by Process Transfer [facility] Anesthesia Medical History Gastroenteritis Ileus Abdominal pain Atherosclerosis of coronary artery Smoking addiction Chronic back pain Osteoarthritis CAD (coronary artery disease) Acute non-ST elevation myocardial infarction (NSTEMI) Close exposure to COVID-19 virus Lower respiratory infection Surgical History Hx of tubal ligation History of coronary artery stent placement 04/18/11 Family History Other CAD (coronary artery disease) Diabetes Hypertension Social History Smoking and tobacco/nicotine status: current every day tobacco/nicotine user cigarettes Packs smoked per day: 1 Years cigarettes smoked: 50 Alcohol intake: current Alcohol intake frequency: holidays/special occasions only Substance/Drug Use: never Lives independently: Yes Household members: none Marital status: / Data Anesthesia 02/07/25 08:32 02/07/25 02:55 Short CBC 02/06/25 02/06/25 02/06/25 Range/Units 09:02 15:30 19:05 WBC 13.27 H (3.29-11.43) 10^3/uL Hgb 12.40 8.50 L D 9.60 L (11.27-16.99) g/dL Hct 38.5 27.8 L 30.1 L (36-47) % MCV 95.8 (85-98) fl Plt Count 293 (157-399) 10^3/cmm Neut % (Auto) 86.5 % Neut # (Auto) 11.49 H (1.8-7.7) 10^3/uL 02/06/25 02/07/25 02/07/25 Range/Units 22:45 02:55 08:32 WBC (3.29-11.43) 10^3/uL Hgb 10.90 L 11.00 L 11.30 (11.27-16.99) g/dL Hct 33.5 L 34.0 L 35.5 L (36-47) % MCV (85-98) fl Plt Count (157-399) 10^3/cmm Neut % (Auto) % Neut # (Auto) (1.8-7.7) 10^3/uL BMP 02/06/25 02/07/25 09:02 02:55 Sodium 136 139 Potassium 3.2 L 3.5 Chloride 93 L 99 Carbon Dioxide 28 27 BUN 26 H 19 Creatinine 0.8 0.7 Glucose 120 H 79 Calcium 10.0 9.8 Liver Function 02/06/25 02/07/25 Range/Units 09:02 02:55 Total Bilirubin 0.4 0.4 (0.15-1.2) mg/dL AST 19 17 (0-32) U/L ALT 9 8 (0-33) U/L Alkaline Phosphatase 95 78 (35-105) U/L Albumin 4.2 3.7 (3.5-5.2) g/dL Urine 02/06/25 Range/Units 08:50 Urine Color [place]ck[place] A (Yellow) Urine Appearance Clear (CLEAR) Urine pH 6.5 (5-7) Ur Specific Davis 1.018 (1.005-1.030) Urine Protein Negative (Negative) Urine Glucose (UA) Negative (Normal) Urine Ketones 1+ H (Negative) Urine Nitrate Negative (Negative) Urine Bilirubin Negative (Negative) Ur Leukocyte Esterase Negative (Negative) Urine RBC 0-2 (0-2) /hpf Urine WBC 0-5 (0-5) /hpf Blood Bank 02/06/25 16:15 Blood Type A Positive Rho(D) Type Rh positive Antibody Screen Negative Cardiac Studies: Echocardiogram 04/19/22 Sestamibi Stress Test (Cardiology) 04/04/20
[2025-02-07] MEDS: sodium chloride 0.9% 500 ML 30 ML IV (13:25)
--- NOTE | 2025-02-07 15:02 | P.PN_ITS ---
Subjective 2 Subjective: She is feeling overall better in her abdomen, however, NG tube has been bothering her states that she has been tickling her nose with suctioning. Vitals/I&O/Wt Last Vital Signs Temp 98.3 F 02/07/25 13:00 Pulse 75 02/07/25 13:00 Resp 16 02/07/25 13:00 BP 139/93 02/07/25 13:00 Pulse Ox 99 02/07/25 13:00 O2 Del Method Room Air 02/07/25 13:00 02/07/25 02/07/25 02/07/25 06:59 14:59 22:59 Intake Total 931.25 / 1536.25 50 / 50 Balance 931.25 / 536.25 50 / 50 Weight last 48 hrs Weight 39.009 kg Weight 40.823 kg Weight 75.296 kg Weight 45.359 kg Physical Exam 2 Const: COMMON NORMALS: patient oriented x3 and alert GENERAL APPEARANCE: c ooperative ORIENTATION/CONSCIOUSNESS: Yes awake HENMT: COMMON NORMALS: oropharynx normal OTHER: NGT in place Neck/C-Spine: COMMON NORMALS: no JVD Resp: COMMON NORMALS: normal respiratory effort and clear to auscultation bilaterally AUSCULTATION: clear to auscultation bilaterally Cardio: COMMON NORMALS: no JVD, regular rhythm, S1 normal heart sound present, S2 normal heart sound present and No murmurs present (Cardio) RHYTHM: regular rhythm HEART SOUNDS: S1 normal heart sound present and S2 normal heart sound present GI: COMMON NORMALS: Soft to palpation PALPATION: Yes Soft to palpation and No Tenderness to palpation present (GI) Extremity: COMMON NORMALS: no joint enlargement and no pedal edema Neuro: COMMON NORMALS: patient oriented x3 and moves all extremities S ENSORIUM/ORIENTATION: Yes alert Skin: COMMON NORMALS: no rashes or lesions noted GENERAL SKIN EXAM: no rashes or lesions noted Data 02/07/25 08:32 02/07/25 02:55 A&P Assessment and plan (1) Gastric outlet obstruction: Reviewed vitals, intake and output. Noted 1 L gastric drainage. Abdominal distention is improved. No further vomiting. Awaiting EGD. Reviewed vitals, hemoglobin, chemistry. Discussed with surgery, later discussion she and her family due to concern for risk of perforation declined to proceed with EGD. Reviewed surgery note. NGT has been dislodged and discontinued. She has been trialed on clear liquids. - Continued IV fluids to prevent dehydration. Monitor for risk of fluid overload. - Continue acid ventura medications (IV proton pump inhibitor, e.g., Protonix) twice daily to reduce gastric inflammation. - Monitor for resolution of vomiting and ability to tolerate oral intake before advancing diet. (2) Duodenal ulcer: As above She and family had declined EGD currently with concern for risk of perforation with procedure. Surgery have discussed with her risk including of malignancy with history of smoking today as well to which they verbalized understanding. (3) GI bleeding: Appears to have resolved. Hemoglobin reviewed, has been showing improvement. So far without evidence of further bleeding. Possible upper gastrointestinal bleeding : Vomiting with dark contents raises concern for upper GI bleeding, possibly related to duodenal ulcer and use of Excedrin (contains aspirin) and other antiplatelet agents. No bright red blood, melena, or hematochezia reported. No blood in urine. The patient is on Plavix and aspirin, increasing bleeding risk. - Monitor for ongoing bleeding (e.g., repeat assessment of vomitus, monitor hemoglobin/hematocrit as indicated). - Hold Excedrin and aspirin for now due to risk of GI bleeding. - PPI Plan Hypokalemia: potassium has been repleted. Recheck level. Check magnesium. Coronary artery disease : History of coronary artery disease. On Plavix and aspirin for secondary prevention. Aspirin and Excedrin use discussed in context of GI bleeding concern. No acute cardiac symptoms reported. - Resume Plavix. Reassess blood counts. - Hold aspirin and Excedrin for now due to GI bleeding risk. Chronic back pain : Chronic back pain managed with Excedrin (contains aspirin). Use of Excedrin is contributing to GI symptoms and risk of ulcer/bleeding. - Discontinue Excedrin due to GI risk. Alternative pain management to be considered after acute GI issues are addressed. Osteoarthritis : History of osteoarthritis. Tobacco use disorder : Patient is a current smoker (three to four cigarettes per day), has cut down from previous use. Risks of continued smoking discussed, including heart disease, stroke, and cancer. Patient is open to nicotine replacement therapy while hospitalized. - Offer nicotine patch or lozenge to help with cravings during hospitalization. PDMP PDMP Reviewed: Not Reviewed Attestations 2 Medical Necessity Statement*: Continue admission for assessment management of gastric outlet obstruction, suspected large duodenal ulcer, GI bleeding in a lady with underlying coronary disease and additional comorbidities. and High MDM includes amount and/or complexity of data reviewed/ordered [ previous or external records, resulted lab(s)/test(s), ordered lab(s)/test(s) and other healthcare professional discussion] and described risk of complication, morbidity or mortality of management as documented Diagnoses Gastric outlet obstruction K31.1 Duodenal ulcer K26.9 GI bleeding K92.2
[2025-02-07] MEDS: ondansetron 2 mg/ML SDV 2 mL 4 MG IVP (22:09)
[2025-02-08] VITALS: PULSE 84; RESP 16; TEMP 36.8; O2SAT 96
[2025-02-08 04:00] VITALS: BP 156/80; PULSE 60; RESP 16; TEMP 36.3; O2SAT 97
[2025-02-08 06:06] LABS: Basophils # 0.1 10^3/uL (0.0-0.1); Basophils % 0.9 %; Eosinophils # 0.1 10^3/uL (0.0-0.8); Hematocrit 37.3 % (36-47); Lymphocytes % 25.3 %; Mean Corpuscular HGB Conc 32.7 g/dL (30-55); Mean Corpuscular Hemoglobin 30.9 pg (27-33); Mean Corpuscular Volume 94.4 fl (85-98); Mean Platelet Volume 9.3 fL (7.4-10.4); Monocytes # 0.8 10^3/uL (0.2-0.9); Monocytes % 10.3 %; Neutrophils % 62.1 %; Nucleated Red Blood Cells % 0 %; Platelet Count 292 10^3/cmm (157-399); Red Blood Count 3.95 10^6/uL (3.85-5.65); Red Cell Distribution Width 13.5 % (12.1-15.1); White Blood Count 7.89 10^3/uL (3.29-11.43)
[2025-02-08] MEDS: acetaminophen 325 mg Tablet 650 MG PO (06:23)
[2025-02-08] MEDS: ondansetron 2 mg/ML SDV 2 mL 4 MG IVP (06:27)
[2025-02-08 06:29] LABS: Magnesium 1.9 mg/dL (1.7-2.3)
[2025-02-08 06:31] LABS: Alanine Aminotransferase 11 U/L (0-33); Alkaline Phosphatase 85 U/L (35-105); Anion Gap 20.1 (5-19); Aspartate Amino Transferase 25 U/L (0-32); Blood Urea Nitrogen 17 mg/dL (8-23); Carbon Dioxide 26 mmol/L (22-29); Chloride 96 mmol/L (98-107); Glucose 92 mg/dL (65-115); Osmolality Calculated 289 mOsm/kg (285-295); Phosphorus 2.3 mg/dL (2.5-4.5); Potassium 3.1 mmol/L (3.5-5.1); Sodium 139 mmol/L (136-145); Total Bilirubin 0.4 mg/dL (0.15-1.2)
[2025-02-08 07:04] VITALS: BP 126/80; PULSE 72; RESP 16; TEMP 36.8; O2SAT 95
--- NOTE | 2025-02-08 08:37 | P.PN_ITS ---
Subjective 2 Subjective: Tolerating clears Vitals/I&O/Wt Last Vital Signs Temp 98.2 F 02/08/25 07:04 Pulse 72 02/08/25 07:04 Resp 16 02/08/25 07:04 BP 126/80 02/08/25 07:04 Pulse Ox 95 02/08/25 07:04 O2 Del Method Room Air 02/08/25 07:04 02/07/25 02/08/25 02/08/25 22:59 06:59 14:59 Intake Total 1360 / 1410 Balance 1360 / 1410 Weight last 48 hrs Weight 87 lb 9 oz Weight 86 lb Weight 90 lb Weight 166 lb Physical Exam 2 Narrative: Chest: Unlabored breathing room air. No lymphadenopathy. Heart: Regular rate and rhythm. Abdomen: Soft, nontender, nondistended. No masses or lymphadenopathy. Data 02/08/25 05:48 02/08/25 05:48 A&P Assessment and plan (1) Duodenal ulcer: Plan 74-year-old female with a large duodenal ulcer who was admitted with gastric outlet obstruction. Obstruction resolved. Recommend advancing diet slowly at home. Continue PPI. Avoid smoking. Patient did not want to proceed with EGD and therefore should be treated conservatively if she returns to the hospital. PDMP PDMP Reviewed: Not Reviewed Attestations 2 Medical Necessity Statement*: N/A Coding Level of Care Code 00270 Diagnoses Duodenal ulcer K26.9
[2025-02-08] MEDS: potassium chloride oral liq 20 mEq/15 mL UDC PO (09:16)
[2025-02-08] MEDS: clopidogrel 75 mg Tablet PO (09:16)
[2025-02-08] MEDS: nicotine 7 mg Patch 1 PATCH TRANSDERMA (09:16)
--- NOTE | 2025-02-08 09:27 | P.DS_ITS ---
Discharge Providers Date of Admission: 02/06/25 12:24 Date of Discharge: February 08, 2025 Attending Provider at Admission: Rahul Flood Attending Provider at Discharge: Rahul Flood Primary Care Provider: Svetlana Sutton MD Diagnoses at Discharge Discharge Diagnosis (1) Gastric outlet obstruction: Status: Acute (2) Duodenal ulcer: Status: Acute (3) GI bleeding: Status: Acute Reason for Visit Reason for Visit: N/V Brief History: Yoselyn Lund is a 74 year old patient with a history of coronary artery disease, chronic back pain, osteoarthritis, and smoking, presenting to the emergency department due to an episode of nausea and vomiting. The vomiting began about three days ago and has prevented the patient from eating or drinking for the last 4-5 days. The patient was prescribed Zofran by their primary provider, but it did not provide relief. This morning, the patient experienced vomiting with dark contents and questioned whether it could be blood. The pat ient denies hematochezia, melena, fever, chills, sore throat, cough, headache, diarrhea, rashes, or blood in the urine. The patient reports taking Excedrin (about three doses daily) and is also on Plavix and aspirin as advised by their heart doctor. The patient has cut down on smoking to three or four cigarettes a day and drinks alcohol occasionally (one or two drinks per week). The patient lives alone but has family nearby. There is discussion regarding the risks of CPR and intubation, with the patient expressing a preference against resuscitation efforts if their heart stops, but would consider ventilator support if recovery is likely. Hospital Course Hospital Course She was admitted and kept n.p.o. NGT was inserted and suction applied for decompression. Total gastric output about [address] abdomen pelvis with finding of massive fluid distention of the stomach as well as enhancement surrounding the duodenal ulcer measuring 11 mm incidentally found marked constipation, atherosclerosis. With suspected gastric outlet obstruction, PUD, risk of malignancy with smoking she was seen with surgery and endoscopy was planned initially, however, due to concern of perforation by patient and family at this time was deferred. She was started and treated with IV PPI twice daily. Instructed to discontinue Excedrin and for now aspirin 325 mg is held as well. She had no recurrence of any dark vomiting hemoglobin was rechecked and was increasing from 8.5 up to 12.2. Platelets remain normal. Mild initial cytosis resolved. Received potassium replacement for mild hypokalemia. NGT became dislodged and was removed. She was able to advance diet to clear liquids which she has tolerated. Abdominal distention has been resolved she has had no recurrence of vomiting. She has been dealing with chronic pain for which she has been taking Excedrin and aspirin. Discussed with her to avoid NSAIDs due to similar risks. Continue Tylenol, multimodal pain control. As a last resort as well.'s, however, discussed with her significant risks of complications, including but constipation she already has very severe constipation. Would avoid if at all possible. She continues with laxatives and stool softeners for constipation. Has had difficulties with it for a long time. Discussed with her to avoid adding supplemental fiber for now due to risk of contributing to obstruction, but this may be added later once ulcer is resolving and without risk of partial ongoing obstruction. Continue bowel regimen. She may follow-up with gastroenterology for further assessment of severe chronic constipation and PUD as discussed with her seeking reassessment with endoscopy with history of smoking to further exclu de malignancy or other concerning findings. She otherwise feels much better and feels ready to return home. She will continue with PPI twice daily, without Excedrin or aspirin, continue Plavix. Please reassess blood counts. Reassess tolerance of oral intake in symptoms, assist in follow-up with gastroenterology and/or surgery to revisit endoscopy, as well as consideration of whether low-dose aspirin resumption is possible and still needed. Please also reassess potassium after mild hypokalemia. Revisit smoking and continue to encourage and assist in cessation. Physical Exam Narrative: Accompanied by her son. Const: COMMON NORMALS: patient oriented x3 and alert GENERAL APPEARANCE: cooperative ORIENTATION/CONSCIOUSNESS: Yes awake HENMT: COMMON NORMALS: oropharynx normal Neck/C-Spine: COMMON NORMALS: no JVD Resp: COMMON NORMALS: normal respiratory effort and clear to auscultation bilaterally AUSCULTATION: clear to auscultation bilaterally Cardio: COMMON NORMALS: no JVD, regular rhythm, S1 normal heart sound present, S2 normal heart sound present and No murmurs present (Cardio) RHYTHM: regular rhythm HEART SOUNDS: S1 normal heart sound present and S2 normal heart sound present GI: COMMON NORMALS: Normal to inspection, nondistended, normoactive bowel sounds present, Soft to palpation and non-tender PALPATION: Yes Soft to palpation Extremity: COMMON NORMALS: no joint enlargement and no pedal edema Neuro: COMMON NORMALS: patient oriented x3 and moves all extremities SENSORIUM/ORIENTATION: Yes alert Skin: COMMON NORMALS: no rashes or lesions noted GENERAL SKIN EXAM: no rashes or lesions noted Discharge Data Studies Completed and Pending Completed Studies During Hospitalization Category Date Time Status CT abdomen pelvis w con* [id number] Stat Cat Scan 02/06/25 09:38 Completed XR chest 1V portable [id number] Stat Exams 02/06/25 11:15 Completed Pending at discharge Category Date Time Status Comprehensive Metabolic Panel AM LABS Lab 02/09/25 04:00 Ordered PRBC [Leukocyte Reduced RBC] Routine Lab 02/06/25 16:15 Results Phosphorus AM LABS Lab 02/09/25 04:00 Ordered Type and Screen Routine Lab 02/06/25 16:15 Results Radiology Impressions Abdomen/Pelvis CT 02/06/25 09:38 IMPRESSION: 1. Massive fluid distention of the stomach. Recommend nasogastric tube insertion. 2. Enhancement surrounding the duodenal ulcer measuring 11 mm. 3. Atherosclerosis aorta. 4. No free air identified. 5. Marked constipation with overlapping loops of colon. 6. No renal obstruction. Chest X-Ray 02/06/25 11:15 IMPRESSION: 1. NG tube ending in the stomach as noted above. 2. Questionable new 2 cm soft tissue nodule in the lateral mid RIGHT lung. A detailed nonemergent PA and lateral chest radiograph would be recommended for follow-up. 3. Cardiac enlargement unchanged. Pulmonary hyperinflation. Laboratory Results WBC 7.89 10^3/uL (3.29-11.43) 02/08/25 05:48 RBC 3.95 10^6/uL (3.85-5.65) 02/08/25 05:48 Hgb 12.20 g/dL (11.27-16.99) 02/08/25 05:48 Hct 37.3 % (36-47) 02/08/25 05:48 MCV 94.4 fl (85-98) 02/08/25 05:48 MCH 30.9 pg (27-33) 02/08/25 05:48 MCHC 32.7 g/dL (30-55) 02/08/25 05:48 RDW 13.5 % (12.1-15.1) 02/08/25 05:48 Plt Count 292 10^3/cmm (157-399) 02/08/25 05:48 MPV 9.3 fL (7.4-10.4) 02/08/25 05:48 Neut % (Auto) 62.1 % 02/08/25 05:48 Lymph % (Auto) 25.3 % 02/08/25 05:48 [place] % (Auto) 10.3 % 02/08/25 05:48 Eos % (Auto) 1.0 % 02/08/25 05:48 Baso % (Auto) 0.9 % 02/08/25 05:48 Neut # (Auto) 4.90 10^3/uL (1.8-7.7) 02/08/25 05:48 Lymph # (Auto) 2.0 10^3/uL (0.8-4.8) 02/08/25 05:48 [place] # (Auto) 0.8 10^3/uL (0.2-0.9) 02/08/25 05:48 Eos # (Auto) 0.1 10^3/uL (0.0-0.8) 02/08/25 05:48 Baso # (Auto) 0.1 10^3/uL (0.0-0.1) 02/08/25 05:48 Nucleated RBC % (auto) 0 % 02/08/25 05:48 Nucleated RBCs # 0.0 /100WBC 02/08/25 05:48 Sodium 139 mmol/L (136-145) 02/08/25 05:48 Potassium 3.1 mmol/L (3.5-5.1) L 02/08/25 05:48 Chloride 96 mmol/L (98-107) L 02/08/25 05:48 Carbon Dioxide 26 mmol/L (22-29) 02/08/25 05:48 Anion Gap 20.1 (5-19) H 02/08/25 05:48 BUN 17 mg/dL (8-23) 02/08/25 05:48 Creatinine 0.6 mg/dL (0.5-0.9) 02/08/25 05:48 GFR Calculation Not Reportable 02/08/25 05:48 Glucose 92 mg/dL (65-115) 02/08/25 05:48 Calculated Osmolality 289 mOsm/kg (285-295) 02/08/25 05:48 Calcium 10.0 mg/dL (8.5-10.5) 02/08/25 05:48 Phosphorus 2.3 mg/dL (2.5-4.5) L 02/08/25 05:48 Magnesium 1.9 mg/dL (1.7-2.3) 02/08/25 05:48 Total Bilirubin 0.4 mg/dL (0.15-1.2) 02/08/25 05:48 AST 25 U/L (0-32) 02/08/25 05:48 ALT 11 U/L (0-33) 02/08/25 05:48 Alkaline Phosphatase 85 U/L (35-105) 02/08/25 05:48 Total Protein 7.0 g/dL (6.6-8.7) 02/08/25 05:48 Albumin 4.0 g/dL (3.5-5.2) 02/08/25 05:48 Globulin 3.0 g/dL (1.3-4.6) 02/08/25 05:48 Lipase 18 U/L (13-60) 02/06/25 09:02 Urine Color [place] (Yellow) A 02/06/25 08:50 Urine Appearance Clear (CLEAR) 02/06/25 08:50 Urine pH 6.5 (5-7) 02/06/25 08:50 Ur Specific [place] 1.018 (1.005-1.030) 02/06/25 08:50 Urine Protein Negative (Negative) 02/06/25 08:50 Urine Glucose (UA) Negative (Normal) 02/06/25 08:50 Urine Ketones 1+ (Negative) H 02/06/25 08:50 Urine Blood Negative (Negative) 02/06/25 08:50 Urine Nitrate Negative (Negative) 02/06/25 08:50 Urine Bilirubin Negative (Negative) 02/06/25 08:50 Urine Urobilinogen 1.0 mg/dL (Negative) 02/06/25 08:50 Ur Leukocyte Esterase Negative (Negative) 02/06/25 08:50 Urine RBC 0-2 /hpf (0-2) 02/06/25 08:50 Urine WBC 0-5 /hpf (0-5) 02/06/25 08:50 Ur Squamous Epith Cells 0-5 /hpf (0-5) 02/06/25 08:50 Amorphous Sediment Not Reportable 02/06/25 08:50 Urine Bacteria None seen /hpf (NONE) 02/06/25 08:50 Hyaline Casts 7.85 /lpf 02/06/25 08:50 Gastric Occult Blood Positive (Negative) H 02/06/25 13:29 Blood Type A Positive 02/06/25 16:15 Rho(D) Type Rh positive 02/06/25 16:15 Antibody Screen Negative 02/06/25 16:15 Crossmatch See Detail 02/06/25 16:15 Vitals Last Vital Signs Temp 98.2 F 02/08/25 07:04 Pulse 72 02/08/25 07:04 Resp 16 02/08/25 07:04 BP 126/80 02/08/25 07:04 Pulse Ox 95 02/08/25 07:04 O2 Del Method Room Air 02/08/25 07:04 Discharge Plan Discharge Patient Disposition: Home Condition: Stable Prescriptions: New pantoprazole 40 mg tablet,delayed release (DR/EC) 40 mg PO BID Qty: 90 0RF nicotine 7 mg/24 hr Patch 24 Hour 1 patch transdermal DAILY Qty: 90 0RF nicotine (polacrilex) 4 mg Lozenge 4 mg mucous membrane Q4H PRN (Reason: Nicotine Cravings) Qty: 90 3RF acetaminophen 325 mg Tablet 650 mg PO Q6H PRN (Reason: Mild/Mod Pain Or Temp >/= 101) Qty: 30 0RF sucralfate 100 mg/mL suspension 1 g PO BID 28 Days Qty: 560 0RF potassium chloride 10 mEq capsule, extended release 10 meq PO DAILY Qty: 30 0RF Continued ondansetron HCl 4 mg tablet 4 mg PO Q8H PRN (Reason: nausea and vomiting) 7 Days Qty: 20 0RF clopidogrel 75 mg tablet See Rx Instructions .ROUTE .COMPLEX Qty: 90 3RF Dose Instruction: TAKE 1 TABLET BY MOUTH EVERY DAY Rx Instructions: TAKE 1 TABLET BY MOUTH EVERY DAY nitroglycerin 0.4 mg tablet, sublingual See Rx Instructions .ROUTE .COMPLEX Qty: 25 4RF Dose Instruction: DISSOLVE 1 TABLET UNDER TONGUE EVERY 5 MINUTES NEEDED FOR CHEST PAIN. MAY TAKE UP TO 3 DOSES PER EPISODE; IF NO RELIEF AFTER 3RD DOSE, CALL 911 OR SEEK EMERGENCY CARE Rx Instructions: DISSOLVE 1 TABLET UNDER TONGUE EVERY 5 MINUTES NEEDED FOR CHEST PAIN. MAY TAKE UP TO 3 DOSES PER EPISODE; IF NO RELIEF AFTER 3RD DOSE, CALL 911 OR SEEK EMERGENCY CARE Discontinued Excedrin Extra Strength 250-250-65 mg Tablet 2 tab PO QID PRN (Reason: Pain) aspirin 325 mg Tablet 325 mg PO Q6H PRN (Reason: Pain) Discharge Orders: Discharge Order (Routine); Ordered 02/08/25 Ordered By: Rahul Flood Referrals: Willard Noble MD [Physician, General Surgery] - 2 weeks Svetlana Sutton MD [Primary Care Provider, Family Practice] - 4-7 days Stevenson Childress MD [Referring, Internal Medicine] - 2 weeks Referral Note: Duodenal ulcer on CT, Hx smoking. Chronic constipation. Discharge Diet: Advance as tolerated, As Directed, GI Soft and Full LIquid Patient Instructions: Pantoprazole (By mouth), Peptic Ulcer (GEN), Gastrointestinal Bleeding (GEN), Constipation (GEN), Soft Diet (GEN), Bowel Obstruction (GEN), GI (Gastrointestinal) Soft Diet (GEN), Patient Portal & [place] Instructions, Sucralfate (By mouth) Activity Restrictions/Additional Instructions: Please continue Protonix and discontinue Excedrin as per discussion, stop aspirin for now as well, continue Plavix until follow-up and reassessment with primary provider, gastroenterology and/for surgery and cardiology to see whether aspirin still needs to be resumed possibly at lower dose of 81 mg daily. Advance diet gradually as tolerating as discussed with full liquids to GI soft diet, add protein shakes for nutrition. Avoid acidic or spicy foods, or soft foods that may irritate your stomach. De-escalate back to full liquid in case you start noticing that food is not advancing well from your stomach. Seek medical attention if you start having progressive distention, nausea vomiting, not tolerating oral intake or other concerning symptoms. Avoid eating or drinking for several hours before going to sleep. Follow-up with gastroenterology regarding chronic constipation and/or the peptic ulcer which had contributed to obstruction of outflow from your stomach. Seek further evaluation with endoscopy to exclude malignancy or any other concerning findings and confirm healing of the ulcer once risk of perforation is acceptable. You had mildly decreased potassium level for which you received supplementation in the hospital. Please have your primary doctor recheck your potassium level. Continue your efforts to stop smoking. Discharge Attestations Time Spent in Discharge Care*: greater than 30 min Quality Metrics Clinical Quality Measures [ No reported AMI, CVA or VTE this stay] Coding Level of Care Code 06517 Total time (in minutes) for Discharge: 45 Diagnoses Gastric outlet obstruction K31.1 Duodenal ulcer K26.9 GI bleeding K92.2
[2025-02-08 11:21] VITALS: BP 126/80; PULSE 72; RESP 16; TEMP 36.8; O2SAT 95
== END 2025-02-08 11:22 | disposition home or self-care (01) | DRG 380 ==
LOC: ER 08:46 → ER IP 12:25 → MEDSURG 13:33
PROVIDERS: Student in an Organized Health Care Education/Training Program; Admitting Provider Internal Medicine; Emergency Provider Family Medicine; PCP Family Medicine; Visit Provider Internal Medicine
PROC: 0DJ08ZZ Inspection of Upper Intestinal Tract, Via Natural or Artificial Opening Endoscopic (ICD-10-PCS; principal; 2025-02-07 14:25)
DX: K31.1 Adult hypertrophic pyloric stenosis (principal); K26.4 Chronic or unspecified duodenal ulcer with hemorrhage; I25.10 Atherosclerotic heart disease of native coronary artery without angina pectoris; G89.29 Other chronic pain; M54.9 Dorsalgia, unspecified; M19.90 Unspecified osteoarthritis, unspecified site; F17.210 Nicotine dependence, cigarettes, uncomplicated; F10.10 Alcohol abuse, uncomplicated; K59.00 Constipation, unspecified; I25.2 Old myocardial infarction; E87.6 Hypokalemia; Z79.02 Long term (current) use of antithrombotics/antiplatelets; Z79.82 Long term (current) use of aspirin
CPT/HCPCS: 36415; 71045; 74018; 74177; 80053; 81001; 82271; 83690; 83735; 84100; 85014; 85018; 85025; 86850; 86900; 86920; 96374; 99285; J0330; J2405; J2470; J2704; J3480; J7040; J7120; J9999

== ENCOUNTER → 2025-03-05 09:36 | Outpatient (BNVA) | payer MEDICARE, SELFPAY | PROVIDERS: PCP Family Medicine; Visit Provider Family Medicine | DX: E87.6 Hypokalemia (principal) | CPT/HCPCS: 80053 ==

== ENCOUNTER → 2025-06-21 14:51 | Outpatient (BNVA) | payer MEDICARE, SELFPAY | PROVIDERS: PCP Family Medicine; Visit Provider Family Medicine | DX: K31.1 Adult hypertrophic pyloric stenosis (principal); I10 Essential (primary) hypertension | CPT/HCPCS: 80053; 85025 ==